=== PATIENT | male | born 1990 | race American Indian/Alaskan Native ===

== ENCOUNTER 2022-05-27 11:18 | Emergency (ER) | payer OTHER, SELFPAY ==
[2022-05-27 11:29] VITALS: BP 118/68; PULSE 74; RESP 18; TEMP 36.6; O2SAT 97; BMI 22.6
--- NOTE | 2022-05-27 11:49 | ED.PSYCH ---
HPI - Psych General Chief Complaint: Psychiatric Symptoms Stated Complaint: SI,VOLUNTARY,SADE/COOP PER EMS Time Seen by Provider: 05/27/22 11:21 Source: patient and EMS Mode of arrival: EMS Limitations: no limitations History of Present Illness HPI Narrative: 31-year-old male with history of depression, PTSD, opiate use disorder, hep C, endocarditis finished antibiotics April 14 at [facility] here coming from [facility] (he is there for detox) here with complaints of suicidal thoughts with no plan. No hallucinations. Is currently on methadone. No physical complaints Related Data Allergies Allergy/AdvReac Type Severity Reaction Status Date / Time No Known Allergies Allergy Verified 05/27/22 11:35 Review of Systems Review of Systems: Yes all other systems are reviewed and are negative Constitutional: Constitutional: Reports no additional constitutional complaints, Denies body ache(s), Denies chills, Denies fever(s), Denies headache(s) and Denies weakness Eyes: Eyes: Reports no additional eye complaints and Denies change in vision ENT: Reports system reviewed and no additional complaints, except as documented, Denies dizziness, Denies headache(s), Denies nasal congestion, Denies nasal discharge and Denies neck pain Cardiovascular: Cardiovascular: Reports no additional cardiovascular complaints, Denies chest pain, Denies leg edema and Denies dyspnea Respiratory: Respiratory: Reports no additional respiratory complaints, Denies cough and Denies dyspnea Gastrointestinal: Gastrointestinal: Reports no additional gastrointestinal complaints, Denies abdominal pain, Denies diarrhea, Denies nausea and Denies vomiting Genitourinary: Genitourinary: Denies urinary incontinence Musculoskeletal: Musculoskeletal: Reports no additional musculoskeletal complaints, Denies back pain, Denies arthralgias, Denies joint swelling, Denies neck pain, Denies numbness and Denies tingling Integumentary/Breasts: Skin/Breast: Reports system reviewed and no additional complaints, except as docu and Denies rash Neurologic: Reports system reviewed and no additional complaints, except as documented, Denies Abnormal speech present, Denies dizziness, Denies headache(s), Denies numbness, Denies tingling and Denies weakness Psychiatric: Psychiatric: Reports suicidal ideation PMFSH Past Medical History Attestation statement: The following information was validated with the patient. Source: old records reviewed and nursing notes reviewed Social History Social History Advance Directives: No Physical Exam Vital Signs: Vital Signs: Last Vital Signs Temp 98 F 05/27/22 11:29 Pulse 74 05/27/22 11:29 Resp 18 05/27/22 11:29 BP 118/68 05/27/22 11:29 Pulse Ox 97 05/27/22 11:29 O2 Del Method Room Air 05/27/22 11:29 BMI result Body Mass Index 22.6 Const: General: cooperative, healthy appearing, comfortable and no acute distress Orientation/consciousness: patient oriented x3 Limitations: no limitations HEENT: Head: Yes normal to inspection Ears: hearing grossly normal bilaterally General nose exam: Normal external nose present Face and sinus: Yes normal facial exam Mouth: Normal oral and palatal mucosa present Throat: Yes posterior oropharynx normal Eyes: General: appearance normal, both eyes and all related structures Pupils: Equal, round and reactive pupils present Neck: Neck: Yes normal visual inspection Chest: Chest palpation & inspection: normal inspection of the chest Resp: Effort & Inspection: normal respiratory effort Auscultation: clear to auscultation bilaterally Cardio: Rate: regular rate Rhythm: regular rhythm Peripheral pulses: Peripheral pulses 2+ throughout GI: Inspection: Yes normal to inspection Palpation (GI): Soft to palpation and nontender Auscultation: normal bowel sounds Back/Spine/Pelvis: Thoracic/Lumbar Spine: thoracic and lumbar spine normal to inspection Skin: General skin exam: no rashes or lesions noted Neuro: General: patient oriented x3, no focal motor deficits and normal sensation to monofilament Cranial nerves: Yes Equal, round and reactive pupils present Cognition (Neuro): normal cognition Speech: No Abnormal speech present Gait exam (Neuro): Normal gait present Motor exam (neuro): 5/5 motor strength present throughout Extrem: General: Yes normal to inspection Course Course Course Narrative: 1400-Reviewed labs which show elevated AST/ALT w/ normal bili. No abdominal pain/vomiting. This is likely secondary to patient's history of hepatitis C. All other labs reviewed. Pending crisis consultation. Reevaluation(s) Reevaluation #1: 1600-patient seen by care team. Plan for voluntary bed search. Placed in physician observation pending disposition. Medical Decision Making Medical Decision Making MDM Narrative: 31 year old male coming from detox with complaints of suicidal thoughts with no plan No concern for acute ingestion or trauma No physical complaint Will obtain labs, drug screen, COVID screen, crisis consultation Differential Diagnosis Differential Diagnoses: The differential diagnosis associated with the presentation includes Lab Data 05/27/22 12:13 05/27/22 12:13 Labs: Lab Results 05/27/22 05/27/22 05/27/22 Range/Units 11:46 12:13 12:13 WBC 4.9 (4.8-10.8) X10*3/uL RBC 4.58 L (4.60-5.80) X10*6/uL Hgb 13.7 L (14.0-18.0) g/dl Hct 41.1 L (42.0-52.0) % MCV 89.7 (80.0-98.0) fL MCH 29.9 (27.0-33.0) pg MCHC 33.3 (31.0-36.0) g/dl RDW 13.8 (11.0-16.0) % Plt Count 129 L (160-400) X10*3/uL MPV 9.1 L (9.4-12.4) fL Immature Gran % (Auto) 0.2 (0.0-0.4) % Neut % (Auto) 44.7 L (45-73) % Lymph % (Auto) 35.4 (20-40) % [place] % (Auto) 13.8 H (2-11) % Eos % (Auto) 5.3 H (0-4) % Baso % (Auto) 0.6 (0-2) % Lymph # (Auto) 1.7 (1.2-4.9) X10*3/uL [place] # (Auto) 0.7 (0.1-1.2) X10*3/uL Eos # (Auto) 0.3 (0.0-0.4) X10*3/uL Baso # (Auto) 0.0 (0.0-0.2) X10*3/uL Abs Immat Gran (auto) 0.01 (0.00-0.03) X10*3/uL Absolute Neuts (auto) 2.2 (2.0-8.3) x10*3/uL Absolute Nucleated RBC 0.000 (0.0-0.012) X10*3/uL Nucleated RBC % (auto) 0.0 (0.0-0.2) /100WBC Sodium 140 (135-145) mmol/L Potassium 4.1 (3.3-5.1) mmol/L Chloride 106 (96-108) mmol/L Carbon Dioxide 25 (22-29) mmol/L Anion Gap 13 (12-20) BUN 15 (9-16) mg/dL Creatinine 0.85 (0.5-1.4) mg/dL Estim Creat Clear Calc 113.1 Estimated GFR > 60 Random Glucose 127 H (60-115) mg/dL Calcium 8.9 (8.4-10.2) mg/dL Total Bilirubin 0.8 (0.0-1.0) mg/dL Direct Bilirubin 0.3 (0.0-0.5) mg/dL AST 159 H (5-37) U/L ALT 282 H (0-40) U/L Alkaline Phosphatase 77 (39-117) U/L Total Protein 6.8 (6.5-8.0) g/dL Albumin 3.8 (3.5-5.0) g/dL Urine Opiates Screen Not Detected (Not Detect) Urine Fentanyl Screen POSITIVE H (Not Detect) Ur Barbiturates Screen Not Detected (Not Detect) Ur Phencyclidine Scrn Not Detected (Not Detect) Ur Amphetamines Screen Not Detected (Not Detect) U Benzodiazepines Scrn Not Detected (Not Detect) Urine Cocaine Screen Not Detected (Not Detect) U Marijuana (THC) Screen Not Detected (Not Detect) Ethyl Alcohol < 10 mg/dL COVID-19 ([facility]) (Negative) COVID-19 Clin Com 05/27/22 Range/Units 12:13 WBC (4.8-10.8) X10*3/uL RBC (4.60-5.80) X10*6/uL Hgb (14.0-18.0) g/dl Hct (42.0-52.0) % MCV (80.0-98.0) fL MCH (27.0-33.0) pg MCHC (31.0-36.0) g/dl RDW (11.0-16.0) % Plt Count (160-400) X10*3/uL MPV (9.4-12.4) fL Immature Gran % (Auto) (0.0-0.4) % Neut % (Auto) (45-73) % Lymph % (Auto) (20-40) % [place] % (Auto) (2-11) % Eos % (Auto) (0-4) % Baso % (Auto) (0-2) % Lymph # (Auto) (1.2-4.9) X10*3/uL [place] # (Auto) (0.1-1.2) X10*3/uL Eos # (Auto) (0.0-0.4) X10*3/uL Baso # (Auto) (0.0-0.2) X10*3/uL Abs Immat Gran (auto) (0.00-0.03) X10*3/uL Absolute Neuts (auto) (2.0-8.3) x10*3/uL Absolute Nucleated RBC (0.0-0.012) X10*3/uL Nucleated RBC % (auto) (0.0-0.2) /100WBC Sodium (135-145) mmol/L Potassium (3.3-5.1) mmol/L Chloride (96-108) mmol/L Carbon Dioxide (22-29) mmol/L Anion Gap (12-20) BUN (9-16) mg/dL Creatinine (0.5-1.4) mg/dL Estim Creat Clear Calc Estimated GFR Random Glucose (60-115) mg/dL Calcium (8.4-10.2) mg/dL Total Bilirubin (0.0-1.0) mg/dL Direct Bilirubin (0.0-0.5) mg/dL AST (5-37) U/L ALT (0-40) U/L Alkaline Phosphatase (39-117) U/L Total Protein (6.5-8.0) g/dL Albumin (3.5-5.0) g/dL Urine Opiates Screen (Not Detect) Urine Fentanyl Screen (Not Detect) Ur Barbiturates Screen (Not Detect) Ur Phencyclidine Scrn (Not Detect) Ur Amphetamines Screen (Not Detect) U Benzodiazepines Scrn (Not Detect) Urine Cocaine Screen (Not Detect) U Marijuana (THC) Screen (Not Detect) Ethyl Alcohol mg/dL COVID-19 ([facility]) Negative (Negative) COVID-19 Clin Com See Note Discharge Plan Discharge Clinical Impression: Suicidal ideation Patient Disposition: Still a Patient Interventions: Toney-Suicide Risk Severity Scale Last Done: 05/27/22 11:48
--- OUTSIDE RECORDS SUMMARY | 2022-05-27 11:53 | XMS_ITS | Continuity of Care Document ---
Author Name Unknown Organization [facility] ter Address [address] [place] [address]- Care Team Providers Care Floor Care Technician Name Role Phone Sebastien Fitzgerald MD Primary Care Physician [phone] Encounter [facility] [place] Date(s): 12/27/19 - 12/29/[address] [address]- [facility] Discharge Disposition: A-D/C Walkout Attending Physician: Not on Staff, Attending MD Admitting Physician: Not on Staff, Admitting MD Referring Physician: Not on Staff, Referring MD Allergies, Adverse Reactions, Alerts Substance Reaction Severity Status ibuprofen Active naproxen Active acetaminophen Active Immunizations Not Given Vaccine Date Status Refusal Reason pneumococcal 23-valent vaccine 1 11/17/18 Not Give n Patient Refuses 1Result Note: will follow up with pcp Medications cloNIDine 0.1 mg oral tablet 0.1 mg, 1, tablet, By Mouth, Daily, Refills 0, Maintenance, 05/23/18 8:55:58 EDT Start Date: 05/23/18 Status: Ordered escitalopram 10 mg oral tablet 1 tablet = 10 mg, By Mouth, Daily, # 30 tablet, 0 Refills, Maintenance, 11/14/18 8:56:03 EDT, Tablet Start Date: 11/14/18 Status: Ordered gabapentin 100 mg oral capsule 200 mg, 2, capsule, By Mouth, 3 times a day, # 180 capsule, Refills 0, Tot. Refills 0, Maintenance,02/15/19 9:32:51 EST, Print Requisition Start Date: 02/15/19 Status: Ordered gabapentin 300 mg oral capsule 300 mg, 1, capsule, By Mouth, 3 times a day, # 270 capsule, Refills 0, Maintenance, 11/14/18 8:55:12 EDT Start Date: 11/14/18 Status: Ordered Methadone By Mouth, 0 Refills, Maintenance, 02/15/19 1:50:59 EST, Partial fill upon patient request Start Date: 02/15/19 Status: Ordered prazosin 1 mg oral capsule 1 mg, 1, capsule, By Mouth, 2 times a day, Refills 0, Maintenance, 11/14/18 8:55:30 EDT Start Date: 11/14/18 Status: Ordered sertraline 100 mg oral tablet 1 tablet = 100 mg, By Mouth, Daily, 0 Refills, Maintenance, 05/23/18 8:55:38 EDT Start Date: 05/23/18 Status: Ordered traZODone 100 mg oral tablet 100 mg, 1, tablet, By Mouth, Daily, Refills 0, Maintenance, 05/23/18 8:55:04 EDT Start Date: 05/23/18 Status: Ordered Problem List Condition Effective Dates Status Health Status Inform ant Alcohol use(Confirmed) Active Bipolar disease(Confirmed) Active Opioid dependence (heroin an d cocaine)(Confirmed) Active Vital Signs Most recent to oldest [Reference Range]: 1 2 3 Oxygen Saturation [94-100 %] 99 % (12/29/19 5:21 PM) 100 % (12/29/19 8:30 AM) 97 % (12/28/19 9:23 AM) Pulse Rate [55-90 bpm] 79 bpm (12/29/19 5:21 PM) 73 bpm (12/29/19 8:30 AM) 88 bpm (12/28/19 9:23 AM) Blood Pressure [90-138/55-84 mm Hg] 124/89mm Hg (12/29/19 5:21 PM) 121/73mm Hg (12/29/19 8:30 AM) 120/71mm Hg (12/28/19 9:23 AM) Respiratory Rate [16-30 br/min] 20 br/min (12/29/19 5:21 PM) 18 br/min (12/29/19 8:30 AM) 18 br/min (12/28/19 11:30 AM) Temperature [96.8-100.4 DegF] 98.1 DegF (12/29/19 8:30 AM) 98.6 DegF (12/28/19 6:44 AM) 98.9 DegF (12/27/19 11:05 PM) Mode of Delivery (Oxygen) Room air (12/29/19 5:21 PM) Room air (12/29/19 8:30 AM) Room air (12/28/19 9:23 AM) Blood pressure sites Arm, right (12/29/19 5:21 PM) Arm, right (12/28/19 6:44 AM) Temperature Route Oral (12/29/19 8:30 AM) Oral (12/28/19 6:44 AM) Oral (12/27/19 11:05 PM) Social History Social History Type Response Smoking Status Current every day bessy ruiz entered on: 02/22/16 Sex Male
--- OUTSIDE RECORDS SUMMARY | 2022-05-27 11:53 | XMS_ITS | Continuity of Care Document ---
Author Name Unknown Organization [facility] Address [address] [place] [id number]- Care Team Providers Care Training Developer Name Role Phone Amilcar OCAMPO, Sebastien Monroe Primary Care Physician Encounter [facility] ACCT R [id number] Date(s): 02/28/22 - 03/30/22 [facility] [address] [place] [id number] Attending Physician: Madie Olvera Admitting Physician: AdmMadie gutierrez Referring Physician: Admtr [id number] Allergies, Adverse Reactions, Alerts Substance Reaction Severity Status ibuprofen Active acetaminophen Resolved Immunizations Not Given Vaccine Date Status Refusal Reason influenza virus vaccine, inactivated 02/12/22 Not Given Patient Refuses influenza virus vaccine, inactivated 01/15/22 Not Given Patient Refuses pneumococcal 23-valent vaccine 1 11/17/18 Not Give n Patient Refuses 1Result Note: will follow up with pcp Medications Methadone 140, By Mouth, Daily, 0 Refills, Maintenance, 01/19/22 22:53:00 EST, Partial fill upon patient request if the prescription is for a schedule II opioid drug. Start Date: 01/19/22 Status: Ordered Problem List Condition Confirmation Course Effective Dates Status H ealth Status Informant Alcohol use Confirmed Active Bipolar disease Confirmed Active Bipolar disorder Confirmed Active Opioid dependence (heroin and cocaine) Confirmed Active Polysubstance abuse Confirmed Active Social History Social History Type Response Tobacco No Sex Patient Care team information Care Team Personnel Name: Rachel Bautista RN Position: S RN Member Role: Primary Care Nurse Name: Cyndie Mancilla RN Position: S RN Member Role: Primary Care Nurse Name: Josie Zuñiga RN Position: S RN Member Role: Primary Care Nurse Name: Mira Bullard RN Position: S RN Member Role: Primary Care Nurse Name: Raffi Jones RN Position: S RN Member Role: Primary Care Nurse Name: Krystyna Clark Position: S RN Member Role: Primary Care Nurse Name: Leland Zuniga RN Position: S RN Member Role: Primary Care Nurse Name: Rogelio James RN Position: S RN Member Role: Primary Care Nurse Name: Kat Souza RN Position: S RN Member Role: Primary Care Nurse Name: Sebastien Fitzgerald MD Position: [facility] Outreach Member Role: PCP Address: Address: [address] [place] [id number] Name: Oriana Trinidad RN Position: S RN Member Role: Primary Care Nurse Name: Collette Dominguez RN Position: [facility] RN Member Role: Primary Care Nurse Name: Carine Cruz RN Position: [facility] RN Member Role: Primary Care Nurse Name: Norma Andres RN Position: [facility] RN Member Role: Primary Care Nurse Name: Elaine Mtz RN Position: [facility] RN Member Role: Primary Care Nurse Name: Ginny Rodriguez RN Position: [facility] RN Member Role: Primary Care Nurse Name: Natasha Salazar RN Position: [facility] RN Member Role: Primary Care Nurse Name: Laurie Ma RN Position: [facility] RN Member Role: Primary Care Nurse Name: Trixie Rocha LPN Position: [facility] RN Member Role: Primary Care Nurse Name: Katie Cox RN Position: [facility] RN Member Role: Primary Care Nurse Care Team Related Persons Name: POP DELUCA Address: home [address] [place] [address]
--- OUTSIDE RECORDS SUMMARY | 2022-05-27 11:53 | XMS_ITS | Continuity of Care Document ---
Author Name Unknown Organization [facility] ter Address [address] [place] [id number]- Care Team Providers Care Warp Tester Name Role Phone Not on Staff, PCP Primary Care Physician Unavail able Encounter [facility] [place] Date(s): 12/14/21 - 12/20/[address] [address] Discharge Disposition: A-D/C AMA Attending Physician: Demario Estrada MD Admitting Physician: Joy OCAMPO, Asiya Referring Physician: Not on Staff, Referring MD Allergies, Adverse Reactions, Alerts Substance Reaction Severity Status ibuprofen Active naproxen Active acetaminophen Active Immunizations Not Given Vaccine Date Status Refusal Reason pneumococcal 23-valent vaccine 1 11/17/18 Not Give n Patient Refuses 1Result Note: will follow up with pcp Medications Azithromycin 5 Day Dose Pack 250 mg oral tablet 1 pack/packet, By Mouth, Once, # 6 tablet, 0 Refills, Soft Stop, 10/08/20 13:48:00 EDT, Tablet, [id number], Partial fill upon patient request if the prescription is for a schedule II opioid drug., 177, cm, 11/17/18 20:15:00 EDT, Height, 62.8,... Start Date: 10/08/20 Status: Ordered cloNIDine 0.1 mg oral tablet 0.1 mg, 1, tablet, By Mouth, Daily, Refills 0, Maintenance, 05/23/18 8:55:58 EDT Start Date: 05/23/18 Status: Ordered Dilaudid Inj 1.5 mg, Injection, IV Push Slowly, Every 4 hours, PRN for Pain , Severe, Routine, 12/15/21 13:48:00EDT Start Date: 12/15/21 Stop Date: 12/20/21 Status: Discontinued escitalopram 10 mg oral tablet 1 tablet [...] gabapentin 300 mg oral capsule 300 mg, Capsule, By Mouth, 12/20/21 9:00:00 EDT Start Date: 12/20/21 Stop Date: 12/20/21 Status: Completed gabapentin 300 mg oral capsule 300 mg, [...] Date: 05/23/18 Status: Ordered Problem List Condition Confirmation Course Effective Dates Status H ealth Status Informant Alcohol use Confirmed Active Bipolar disease Confirmed Active Bipolar disorder Confirmed Active Opioid dependence (heroin and cocaine) Confirmed Active Polysubstance abuse Confirmed Active Results Orders for Microbiology Reports Name Date Blood Culture 12/17/21 Blood Culture #2 12/17/21 Blood Culture 12/16/21 Blood Culture #2 12/16/21 Blood Culture 12/15/21 Blood Culture #2 12/15/21 Blood Culture 12/14/21 Blood Culture 12/14/21 Blood Culture #2 12/14/21 Microbiology Reports TEST:Blood Culture STATUS:Unauthenticated BODY SITE: SOURCE:Blood COLLECTED DATE/TIME:12/17/21 1:25 AM Blood Culture SPECIMEN DESCRIPTION : BLOOD SPECIAL REQUESTS : NONE CULTURE : NO GROWTH 3 DAYS REPORT STATUS : PRELIMINARY REPORT TEST:Blood Culture, Second Order STATUS:Unauthenticated BODY SITE: SOURCE:Blood COLLECTED DATE/TIME:12/17/21 1:25 AM Blood Culture, Second Order SPECIMEN DESCRIPTION : BLOOD RIGHT HAND SPECIAL REQUESTS : NONE CULTURE : NO GROWTH 3 DAYS REPORT STATUS : PRELIMINARY REPORT TEST:Blood Culture STATUS:Unauthenticated BODY SITE: SOURCE:Blood COLLECTED DATE/TIME:12/16/21 1:11 AM Blood Culture SPECIMEN DESCRIPTION : BLOOD RIGHT ARM SPECIAL REQUESTS : NONE CULTURE : NO GROWTH 4 DAYS REPORT STATUS : PRELIMINARY REPORT TEST:Blood Culture, Second Order STATUS:Unauthenticated BODY SITE: SOURCE:Blood COLLECTED DATE/TIME:12/16/21 1:11 AM Blood Culture, Second Order SPECIMEN DESCRIPTION : BLOOD RIGHT ARM SPECIAL REQUESTS : CRITICAL VALUE CALLED AND VERIFIED BY READBACK FOR: GRAM POSITIVE COCCI IN BLOOD TO , [place] [id number] BY TECH [id number] ON 12/19/21 AT 1350. CULTURE : ENTEROCOCCUS FAECALIS SERIOUS ENTEROCOCCAL INFECTIONS SHOULD BE TREATED WITH AMPICILLIN, PENICILLIN OR VANCOMYCIN IN SYNERGISTIC COMBINATION WITH AN AMINOGLYCOSIDE. BOTH DRUGS USED MUST BE ACTIVE. This isolate was identified using Maldi-TOF system REPORT STATUS : PRELIMINARY REPORT TEST:Blood Culture STATUS:Auth (Verified) BODY SITE: SOURCE:Blood COLLECTED DATE/TIME:12/15/21 10:37 AM Blood Culture SPECIMEN DESCRIPTION : BLOOD L ARM SPECIAL REQUESTS : CRITICAL VALUE CALLED AND VERIFIED BY READBACK FOR: GRAM POSITIVE COCCI NOTIFIED TO [id number] FROM B, AT 0230, . [id number] CULTURE : ENTEROCOCCUS FAECALIS SERIOUS ENTEROCOCCAL INFECTIONS SHOULD BE TREATED WITH AMPICILLIN, PENICILLIN OR VANCOMYCIN IN SYNERGISTIC COMBINATION WITH AN AMINOGLYCOSIDE. BOTH DRUGS USED MUST BE ACTIVE. This isolate was identified using Maldi-TOF system FOR SUSCEPTIBILITY RESULT REFER TO BLOOD CULTURE REPORT STATUS : FINAL 12/18/2021 TEST:Blood Culture, Second Order STATUS:Auth (Verified) BODY SITE: SOURCE:Blood COLLECTED DATE/TIME:12/15/21 10:37 AM Blood Culture, Second Order SPECIMEN DESCRIPTION : BLOOD L ARM SPECIAL REQUESTS : NONE CULTURE : ENTEROCOCCUS FAECALIS SERIOUS ENTEROCOCCAL INFECTIONS SHOULD BE TREATED WITH AMPICILLIN, PENICILLIN OR VANCOMYCIN IN SYNERGISTIC COMBINATION WITH AN AMINOGLYCOSIDE. BOTH DRUGS USED MUST BE ACTIVE. This isolate was identified using Maldi-TOF system These AST results were performed on the Microscan ID and AST system REPORT STATUS : FINAL 12/18/2021 ORGANISM ENTEROCOCCUS FAECALIS SERIOUS ENTEROCOCCAL INFECTIONS SHOULD BE TREATED WITH AMPICILLIN, PENICILLIN OR VANCOMYCIN IN SYNERGISTIC COMBINATION WITH AN AMINOGLYCOSIDE. BOTH DRUGS USED MUST BE ACTIVE. This isolate was identified using Maldi-TOF system These AST results were performed on the Microscan ID and AST system METHOD MIN. INHIB. CONC. (MCG/ML) AMPICILLIN SUSCEPTIBLE VANCOMYCIN SUSCEPTIBLE GENTAMICIN SYNERGY ACTIVE IN SYNERGY STREPTOMYCIN SYNERGY ACTIVE IN SYNERGY TEST:Blood Culture STATUS:Auth (Verified) BODY SITE: SOURCE:Blood COLLECTED DATE/TIME:12/14/21 2:42 PM Blood Culture SPECIMEN DESCRIPTION : BLOOD LT HAND SPECIAL REQUESTS : NONE CULTURE : ENTEROCOCCUS FAECALIS SERIOUS ENTEROCOCCAL INFECTIONS SHOULD BE TREATED WITH AMPICILLIN, PENICILLIN OR VANCOMYCIN IN SYNERGISTIC COMBINATION WITH AN AMINOGLYCOSIDE. BOTH DRUGS USED MUST BE ACTIVE. This isolate was identified using Maldi-TOF system These AST results were performed on the Microscan ID and AST system REPORT STATUS : FINAL 12/17/2021 ORGANISM ENTEROCOCCUS FAECALIS SERIOUS ENTEROCOCCAL INFECTIONS SHOULD BE TREATED WITH AMPICILLIN, PENICILLIN OR VANCOMYCIN IN SYNERGISTIC COMBINATION WITH AN AMINOGLYCOSIDE. BOTH DRUGS USED MUST BE ACTIVE. This isolate was identified using Maldi-TOF system These AST results were performed on the Microscan ID and AST system METHOD MIN. INHIB. CONC. (MCG/ML) AMPICILLIN SUSCEPTIBLE VANCOMYCIN SUSCEPTIBLE GENTAMICIN SYNERGY ACTIVE IN SYNERGY STREPTOMYCIN SYNERGY ACTIVE IN SYNERGY TEST:Blood Culture, Second Order STATUS:Auth (Verified) BODY SITE: SOURCE:Blood COLLECTED DATE/TIME:12/14/21 2:35 PM Blood Culture, Second Order SPECIMEN DESCRIPTION : BLOOD LT SPECIAL REQUESTS : NONE CULTURE : ENTEROCOCCUS FAECALIS SERIOUS ENTEROCOCCAL INFECTIONS SHOULD BE TREATED WITH AMPICILLIN, PENICILLIN OR VANCOMYCIN IN SYNERGISTIC COMBINATION WITH AN AMINOGLYCOSIDE. BOTH DRUGS USED MUST BE ACTIVE. This isolate was identified using Maldi-TOF system FOR SUSCEPTIBILITY RESULT REFER TO BLOOD CULTURE REPORT STATUS : FINAL 12/17/2021 TEST:Blood Culture STATUS:Auth (Verified) BODY SITE: SOURCE:Blood COLLECTED DATE/TIME:12/14/21 2:07 PM Blood Culture SPECIMEN DESCRIPTION : BLOOD RT ARM SPECIAL REQUESTS : CRITICAL VALUE CALLED AND VERIFIED BY READBACK FOR: GRAM POSITIVE COCCI TO [id number], D3B, 12/15 AT 0443 BY TECH [id number] CULTURE : ENTEROCOCCUS FAECALIS SERIOUS ENTEROCOCCAL INFECTIONS SHOULD BE TREATED WITH AMPICILLIN, PENICILLIN OR VANCOMYCIN IN SYNERGISTIC COMBINATION WITH AN AMINOGLYCOSIDE. BOTH DRUGS USED MUST BE ACTIVE. FOR SUSCEPTIBILITY RESULT REFER TO BLOOD CULTURE Enterococcus faecalis was identified by multi-plex PCR REPORT STATUS : FINAL 12/17/2021 Radiology Reports * Exam Date Time Procedure Performing Provider Status 12/18/21 8:05 AM Shoulder Min 2 Views Left Jeane Lui; Auth (Verified) Notes: (Shoulder Min 2 Views Left) Reason For Exam: Pain RESULT: Shoulder Min 2 Views Left Shoulder Min 2 Views Left, 2 views Reason: Pain; Clinical Question(s): Osteomyelitis COMPARISON: None. FINDINGS: No fracture or dislocation. No arthritic change of the glenohumeral joint. Normal AC joint and portions of the clavicle included on the exam. No calcification of the rotator cuff. IMPRESSION: Normal. WSN: [id number] Ordering Physician: Demario Estrada Dictated By: Ginny Barakat MD Dictated Date/Time: 12/18/21 1:46 pm Reviewed By: Ginny Barakat MD Signed By: Ginny Barakat MD Signed Date/Time: 12/18/21 1:46 pm Transcribed By: NIKI Transcribed Date/Time: 12/18/21 1:45 pm * Exam Date Time Procedure Performing Provider Status 12/14/21 1:53 PM Chest Portable Genevieve Deluca; Auth (Lemuel ified) Notes: (Chest Portable) Reason For Exam: Shortness of Breath RESULT: Chest Portable Examination: Portable chest performed on 12/14/2021. History: Shortness of breath. Findings: A frontal view of the chest is compared to a prior study dated 10/08/2020. The cardiac and mediastinal silhouettes are within normal limits. There is a left midlung and a left lower lobe infiltrate. The right lung is clear. IMPRESSION: Multifocal airspace disease within the left lung, consistent with pneumonia. WSN: [id number] Ordering Physician: Jose Alejandro Montilla Dictated By: Mira Cornelius MD Dictated Date/Time: 12/14/21 1:55 pm Reviewed By: Mira Cornelius MD Signed By: Mira Cornelius MD Signed Date/Time: 12/14/21 1:55 pm Transcribed By: NIKI Transcribed Date/Time: 12/14/21 1:54 pm Vital Signs Most recent to oldest [Reference Range]: 1 2 3 Height 167.64 cm (12/20/21 7:06 AM) 167.64 cm (12/20/21 3:15 AM) 167.64 cm (12/19/21 11:19 PM) Weight 54.3 kg (12/19/21 1:02 PM) 54.6 kg (12/15/21 11:01 AM) Oxygen Saturation [94-100 %] 99 % (12/20/21 7:06 AM) 94 % (12/19/21 11:19 PM) 94 % (12/19/21 8:29 PM) Pulse Rate [55-90 bpm] 91 bpm *H* (12/20/21 7:06 AM) 72 bpm (12/20/21 3:15 AM) 87 bpm (12/19/21 11:19 PM) Body Mass Index [18.5-24.99 kg/m2] 19.32 kg/m2 (12/19/21 1:02 PM) 19.43 kg/m2 (12/15/21 11:01 AM) Blood Pressure [90-138/55-84 mm Hg] 93/79mm Hg (12/20/21 7:06 AM) 111/60mm Hg (12/20/21 3:15 AM) 99/56mm Hg (12/19/21 11:19 PM) Respiratory Rate [16-30 br/min] 16 br/min (12/20/21 9:09 AM) 16 br/min (12/20/21 9:09 AM) 16 br/min (12/20/21 9:09 AM) Temperature [96.8-100.4 DegF] 97.8 DegF (12/20/21 7:06 AM) 97.8 DegF (12/20/21 3:15 AM) 98.1 DegF (12/19/21 11:19 PM) Mode of Delivery (Oxygen) Room air (12/20/21 7:06 AM) Room air (12/20/21 3:15 AM) Room air (12/19/21 11:19 PM) Blood pressure sites Arm, left (12/20/21 7:06 AM) Arm, right (12/20/21 3:15 AM) Arm, right (12/19/21 11:19 PM) Temperature Route Oral (12/20/21 7:06 AM) Oral (12/20/21 3:15 AM) Oral (12/19/21 11:19 PM) Weight Obtained Via Standing scale (12/19/21 1:02 PM) Standing scale (12/15/21 11:01 AM) Social History Social History Type Response Smoking Status Current every day bessy ruiz entered on: 02/22/16 Sex Male Portable XR Chest Views * ERICHowerscribe , CIS S: TRANSCRIMira Kraus MD: VERIFY Event Display: Result: Authored Date: [id number] Examination: Portable chest performed on 12/14/2021. History: Shortness of breath. Findings: A frontal view of the chest is compared to a prior study dated 10/08/2020. The cardiac and mediastinal silhouettes are within normal limits. There is a left midlung and a left lower lobe infiltrate. The right lung is clear. IMPRESSION: Multifocal airspace disease within the left lung, consistent with pneumonia. WSN: [id number] Ordering Physician: Jose Alejandro Montilla Dictated By: Mira Cornelius MD Dictated Date/Time: 12/14/21 1:55 pm Reviewed By: Mira Cornelius MD Signed By: Mira Cornelius MD Signed Date/Time: 12/14/21 1:55 pm Transcribed By: NIKI Transcribed Date/Time: 12/14/21 1:54 pm XR Shoulder - left GE 2 Views * BHSPowerscribe , CIS S: TRANSCRIGinny Combs MD: VERIFY Event Display: Result: Authored Date: [id number] Shoulder Min 2 Views Left, 2 views Reason: Pain; Clinical Question(s): Osteomyelitis COMPARISON: None. FINDINGS: No fracture or dislocation. No arthritic change of the glenohumeral joint. Normal AC joint and portions of the clavicle included on the exam. No calcification of the rotator cuff. IMPRESSION: Normal. WSN: [id number] Ordering Physician: Demario Estrada Dictated By: Ginny Barakat MD Dictated Date/Time: 12/18/21 1:46 pm Reviewed By: Ginny Barakat MD Signed By: Ginny Barakat MD Signed Date/Time: 12/18/21 1:46 pm Transcribed By: NIKI Transcribed Date/Time: 12/18/21 1:45 pm Patient Care team information Personnel Name: Not on Staff, PCP
--- OUTSIDE RECORDS SUMMARY | 2022-05-27 11:54 | XMS_ITS | Continuity of Care Document ---
Author Name Unknown Organization [facility] ter Address [address] [place] [id number]- Care Team Providers Care Store Lead Name Role Phone Not on Staff, PCP Primary Care Physician Unavail able Encounter [facility] Date(s): 12/20/21 - 12/20/[address] [id number]- Encounter Diagnosis Endocarditis(Final) - 12/20/21 Discharge Disposition: A-D/C AMA Attending Physician: Jamshid Haley MD Admitting Physician: Jamshid Haley MD Referring Physician: Not on Staff, Referring [...] Start Date: 05/23/18 Status: Ordered Dilaudid Inj 2 mg, Injection, IV Push Slowly, Every 15 minutes for 3 doses/times, PRN for Pain , Moderate, and SBP greater than 100, Routine, 12/20/21 21:43:00 EDT, Stop date Limited # of times Start Date: 12/20/21 Status: Ordered escitalopram 10 mg oral tablet [...] Confirmed Active Polysubstance abuse Confirmed Active Results Radiology Reports * Exam Date Time Procedure Performing Provider Status 12/20/21 6:40 PM Chest 2 Views Frontal and Lat Dami Fitzgerald; Tootie (Verified) Notes: (Chest 2 Views Frontal and Lat) Reason For Exam: Chest Pain;Other: RESULT: Chest 2 Views Frontal and Lat Chest 2 Views Frontal and Lat INDICATION: Hx of Present Illness: Pt reports leaving from inpatient unit to do cocaine. Patient returning for continuation of care. Pt reports having increased difficulty taking deep breath due to severe anterior chest pain.; Reason: Other:; Chest Pain; Clinical Question(s): Other: COMPARISON: 12/14/2021 FINDINGS: LINES AND TUBES: None. LUNGS AND PLEURA: There is persistent but minimally improved patchy opacity in the left midlung. A new patchy opacityin the right infrahilar region is present. There is improved aeration in the left base. No effusion or pneumothorax. HEART, MEDIASTINUM AND NELSY: Normal. BONES AND SOFT TISSUES: No acute abnormality. IMPRESSION: New right infrahilar consolidation probably new focus of pneumonia. Minimally improved left mid consolidation. A critical result message (Ferriday) has been communicated via the [employer] system on 12/20/2021 6:43 PM, Message ID [id number]. WSN: [id number] Ordering Physician: Madeleine Mcintosh Dictated By: Hilda Rodriguez MD Dictated Date/Time: 12/20/21 6:43 pm Reviewed By: Hilda Rodriguez MD Signed By: Hilda Rodriguez MD Signed Date/Time: 12/20/21 6:43 pm Transcribed By: NIKI Transcribed Date/Time: 12/20/21 6:41 pm Vital Signs Most recent to oldest [Reference Range]: 1 2 3 Height 167 cm (12/20/21 10:43 PM) 167 cm (12/20/21 6:10 PM) 167 cm (12/20/21 4:24 PM) Weight 55 kg (12/20/21 10:43 PM) 55 kg (12/20/21 6:10 PM) 55 kg (12/20/21 4:24 PM) Oxygen Saturation [94-100 %] 97 % (12/20/21 8:52 PM) 97 % (12/20/21 6:43 PM) 96 % (12/20/21 4:24 PM) Pulse Rate [55-90 bpm] 86 bpm (12/20/21 8:52 PM) 83 bpm (12/20/21 6:43 PM) 112 bpm *H* (12/20/21 4:24 PM) Body Mass Index [18.5-24.99 kg/m2] 19.72 kg/m2 (12/20/21 4:24 PM) Blood Pressure [90-138/55-84 mm Hg] 110/72mm Hg (12/20/21 8:52 PM) 99/62mm Hg (12/20/21 6:43 PM) 120/72mm Hg (12/20/21 4:24 PM) Respiratory Rate [16-30 br/min] 14 br/min *L* (12/20/21 9:26 PM) 16 br/min (12/20/21 4:24 PM) Temperature [96.8-100.4 DegF] 98.0 DegF (12/20/21 6:43 PM) 99.7 DegF (12/20/21 4:24 PM) Mode of Delivery (Oxygen) Room air (12/20/21 8:52 PM) Room air (12/20/21 6:43 PM) Room air (12/20/21 4:24 PM) Blood pressure sites Arm, left (12/20/21 8:52 PM) Arm, left (12/20/21 6:43 PM) Arm, right (12/20/21 4:24 PM) Temperature Route Oral (12/20/21 6:43 PM) Oral (12/20/21 4:24 PM) Dry Weight 55 kg (12/20/21 10:43 PM) 55 kg (12/20/21 6:10 PM) 55 kg (12/20/21 4:24 PM) Weight Obtained Via Patient/family state d (12/20/21 4:24 PM) Dry Weight Obtained Via Patient/family s tated (12/20/21 4:24 PM) Social History Social History Type Response Smoking Status Current every day joseph entered on: 02/22/16 Sex Male Note * BHSPowerscribe , CIS S: TRANSCHilda Casey MD: VERIFY Event Display: Result: Authored Date: [id number] Chest 2 Views Frontal and Lat INDICATION: Hx of Present Illness: Pt reports leaving from inpatient unit to do cocaine. Patient returning for continuation of care. Pt reports having increased difficulty taking deep breath due to severe anterior chest pain.; Reason: Other:; Chest Pain; Clinical Question(s): Other: COMPARISON: 12/14/2021 FINDINGS: LINES AND TUBES: None. LUNGS AND PLEURA: There is persistent but minimally improved patchy opacity in the left midlung. A new patchy opacityin the right infrahilar region is present. There is improved aeration in the left base. No effusion or pneumothorax. HEART, MEDIASTINUM AND NELSY: Normal. BONES AND SOFT TISSUES: No acute abnormality. IMPRESSION: New right infrahilar consolidation probably new focus of pneumonia. Minimally improved left mid consolidation. A critical result message (Ferriday) has been communicated via the [employer] system on 12/20/2021 6:43 PM, Message ID [id number]. WSN: [id number] Ordering Physician: Madeleine Mcintosh Dictated By: Hilda Rodriguez MD Dictated Date/Time: 12/20/21 6:43 pm Reviewed By: Hlida Rodriguez MD Signed By: Hilda Rodriguez MD Signed Date/Time: 12/20/21 6:43 pm Transcribed By: NIKI Transcribed Date/Time: 12/20/21 6:41 pm Patient Care team information Personnel Name: Not on Staff, PCP
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
--- OUTSIDE RECORDS SUMMARY | 2022-05-27 11:54 | XMS_ITS | Continuity of Care Document ---
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 08:13:00) Early Warning Score: 0 (02/08/22 13:31:17) ? . Physical Exam General?NAD, AAO HEENT?PERRLA, oropharynx clear, moist mucus membranes Pulm?CTA bilaterally, no wheezes/rhonchi/rales CV?RRR, +S1/S2, no murmurs/rubs GI?Soft, nontender, nondistended, no organomegaly, bowel sounds are present Neuro?Moves all extremities MS?no obvious deformity Psych?Mood appropriate to situation?? [facility] to Face ^[facility]Health[facility] Results Discharge Labs BLOOD COUNT & DIFF WBC 4.6 k/mm3 ()?? 02/04/2022 05:48 RBC 4.45 m/mm3 (Low)?? 02/04/2022 05:48 Hgb 13.4 Gm/dL (Low)?? 02/04/2022 05:48 Hct 42.1 % ()?? 02/04/2022 05:48 MCV 94.6 femtoliters (High)?? 02/04/2022 05:48 MCH 30.1 pg ()?? 02/04/2022 05:48 MCHC 31.8 g/dL (Low)?? 02/04/2022 05:48 Platelet Count 154 k/mm3 ()?? 02/04/2022 05:48 RDW-SD 52.6 femtoliters (High)?? 02/04/2022 05:48 MPV 9.0 femtoliters (Low)?? 02/04/2022 05:48 Nucleated RBC (Automated) 0.0 #/100 WBC'S ()?? 02/04/2022 05:48 Abs. NRBC 0.0 k/mm3 ()?? 02/04/2022 05:48 Abs. Neut 2.7 k/mm3 ()?? 02/03/2022 08:35 Abs. Lymph 1.1 k/mm3 ()?? 02/03/2022 08:35 Abs. [place] 0.9 k/mm3 ()?? 02/03/2022 08:35 Abs. Eo 0.3 k/mm3 ()?? 02/03/2022 08:35 Abs. Baso 0.1 k/mm3 ()?? 02/03/2022 08:35 Neut % 53.5 % ()?? 02/03/2022 08:35 Lymph % 22.2 % ()?? 02/03/2022 08:35 [place] % 17.3 % (High)?? 02/03/2022 08:35 Eos % 5.0 % ()?? 02/03/2022 08:35 Baso % 1.4 % ()?? 02/03/2022 08:35 Imm Gran 0.6 % ()?? 02/03/2022 08:35 Abs. Imm Gran 0.0 k/mm3 ()?? 02/03/2022 08:35 ?? CARDIAC CK, Total 28 units/L ()?? 02/04/2022 05:48 Nt-Probnp 123 pg/mL ()?? 01/21/2022 01:17 High Sensitivity Troponin (HSTnT) <6 ng/L ()?? 01/21/2022 00:47 ? CHEM GENERAL Sodium 138 mmol/L ()?? 02/08/2022 04:46 Potassium 4.8 mmol/L ()?? 02/08/2022 04:46 Chloride 101 mmol/L ()?? 02/08/2022 04:46 Bicarbonate Level 25 mmol/L ()?? 02/08/2022 04:46 Anion Gap 12 ()?? 02/08/2022 04:46 Glucose Level 81 mg/dL ()?? 02/07/2022 05:17 BUN 21 mg/dL (High)?? 02/08/2022 04:46 Creatinine-Blood 0.8 mg/dL ()?? 02/08/2022 04:46 Estimated GFR Creatinine 120 ML/MIN/1.73 M2 ()?? 02/08/2022 04:46 Calcium 9.1 mg/dL ()?? 02/07/2022 05:17 Magnesium 1.9 mg/dL ()?? 01/23/2022 02:08 Protein, Total 7.0 Gm/dL ()?? 02/08/2022 04:46 Albumin 4.4 Gm/dL ()?? 02/08/2022 04:46 Alkaline Phosphatase 106 units/L ()?? 02/08/2022 04:46 AST (SGOT) 405 units/L (High)?? 02/08/2022 04:46 ALT (SGPT) 644 units/L (High)?? 02/08/2022 04:46 Bilirubin, Total 0.8 mg/dL ()?? 02/08/2022 04:46 Bilirubin, Direct 0.2 mg/dL ()?? 02/08/2022 04:46 Bilirubin, Indirect 0.6 mg/dL ()?? 02/08/2022 04:46 Iron Level 112 mcg/dL ()?? 02/03/2022 16:08 Iron Binding Capacity, Unsaturated 186 mcg/dL ()?? 02/03/2022 16:08 Iron Binding Capacity, Estimated Total 298 mcg/dL ()?? 02/03/2022 16:08 % Iron Saturation 38 % ()?? 02/03/2022 16:08 Ferritin Level 348 ng/mL (High)?? 02/03/2022 16:08 ?? COAG INR 1.1 ()?? 02/06/2022 00:57 Protime (PT) 11.9 seconds (High)?? 02/06/2022 00:57 ?? HEME OTHER Hold Lavender Top SPECIMEN DISCARDED AFTER 24 HOURS. ()?? 01/28/2022 08:50 Hold Blue Top SPECIMEN DISCARDED AFTER 4 HOURS. ()?? 01/21/2022 01:17 ?? IMMUNOLOGY GENERAL Etxis-6-Xrzbjprcurs 172 mg/dL ()?? 02/03/2022 16:08 Ceruloplasmin 26 mg/dL ()?? 02/03/2022 16:08 ?? SEROLOGY INF DISEASE Hepatitis B Surface Antigen NEGATIVE (N)?? 02/02/2022 07:37 Hepatitis B Core Ab, Total NEGATIVE (N)?? 02/02/2022 07:37 Anti-HBS Quant 102.44 mIU/mL ()?? 02/02/2022 07:37 ? TOXICOLOGY/TDM Acetaminophen Level <5 mg/L (Low)?? 02/03/2022 16:08 ? VIROLOGY COVID-19 PCR Specimen Source NASAL ()?? 01/26/2022 06:15 COVID-19 PCR Result POSITIVE (Abnormal)?? 01/26/2022 06:15 ? 35_ minutes spent on discharge * Deidre Sanon RN: PERFORM Event Display: Discharge/Transfer Note Hospital Authored Date: Nursing Discharge Note Entered On: 02/08/2022 13:28 EST Performed On: 02/08/2022 13:27 EST by Deidre Sanon RN Nursing Discharge Note 2 Discharge Time : 02/08/2022 13:27 EST Discharge Level of Care at Discharge : Left Against Medical Advice Patient Left Unit Via : Ambulatory Patient Accompanied Off Unit with : Other: independent DC Instructions Provided & Signed by Pt : No Patient Understands D/C Instructions : No Verbalization of Discharge Plan Comments : AMA Patient Instructions Discharge Signed : No Instructions for Discharge Comments : AMA Did Pt have Specialty Bed or Wound Vac : No Talita TOPETE, Deidre - 02/08/2022 13:27 EST * WARREN Hanna S: TRANSCRIRojas Ramon MD: VERIFY Event Display: Result: Authored Date: [id number] Ultrasound of the liver including Doppler evaluation of the portal vein. Findings There is no evidence of portal vein thrombosis. Flow within the main portal vein is hepatopedal. Common bile duct measures 4 mm within normal limits. No evidence of focal abnormality within the liver. IMPRESSION: Unremarkable evaluation the liver. No evidence of portal vein thrombosis. WSN: [id number] Ordering Physician: Zuleika Lawrence Dictated By: Rojas Reid MD Dictated Date/Time: 02/03/22 10:26 p Reviewed By: Rojas Reid MD Signed By: Rojas Reid MD Signed Date/Time: 02/03/22 10:26 pm Transcribed By: CSTrisha Transcribed Date/Time: 02/03/22 10:24 pm * WARREN Hanna S: TRANSCSukh Alford MD: VERIFY Event Display: Result: Authored Date: [id number] US Doppler Ext Lower Venous Left Reason: Other:; mild tenderness and swelling in left medial area just above knee; Clinical Question(s): Thrombus COMPARISON: None IMAGING TECHNIQUE: Ultrasound of the veins from the groin through the calf was performed using grayscale, color, and spectral Doppler ultrasound assessing for complete compressibility and normal flowcharacteristics. FINDINGS: Common femoral vein: Patent. No thrombosis. Femoral vein: Patent. No thrombosis. Popliteal vein: Patent. No thrombosis. Gastrocnemius veins: The visualized portions are patent without evidence of thrombosis. Peroneal veins: The visualized portions are patent without evidence of thrombosis. Posterior tibial veins: The visualized portions are patent without evidence of thrombosis. Contralateral common femoral vein: Patent. No thrombosis. OTHER FINDINGS: None. IMPRESSION: No evidence of deep venous thrombosis. WSN: [id number] Ordering Physician: Romelia Almaguer Dictated By: Sukh Oates MD Dictated Date/Time: 01/27/22 8:46 pm Reviewed By: Sukh Oates MD Signed By: Sukh Oates MD Signed Date/Time: 01/27/22 8:46 pm Transcribed By: NIKI Transcribed Date/Time: 01/27/22 8:39 pm * Event Display: Cardiac Rhythm Strips Authored Date: * Event Display: Cardiac Rhythm Strips Authored Date: Hospital Progress note * Talita TOPETE, Deidre: SIGN, MODIFY, PERFORM, SIGN, VERIFY Event Display: Progress Note Hospital Authored Date: Patient: JANAE HANDY Age: 31 years Sex: Male : 1990 Associated Diagnoses: None Author: Deidre Sanon RN Findings Problem Related to Alteration in Cardiac Function (new) : Alteration in Cardiac Function/new 02/08/2022 10:03 EST Alteration in Cardiac Status Related to Other: 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 Goals & Outcomes, Cardiac Status Pt will resume/maintain adequate cardiac output, Pt will resume/maintain adequate hemodynamic status, Pt will resume/maintain adequate respiratory function, Pt will resume/maintain intact neuro function, Pt will maintain adequate GI/ function appropriate for pt, Pt will maintain adequate nutrition status, Pt/caregiver will state understanding of diagnosis, Pt/caregiver will state strategies to reduce risk factors Cardiac Interventions Implemented Assess/monitor cardiac status, Assess/monitor neuro status, Assess/monitor respiratory status Goals/Interventions, Cardiac Yes Cardiac, Problem Start 02/01/2022 5:51 Reviewed Plan with, Cardiac Status Patient Patient Progression, Cardiac Status Patient progressing according to plan . Nursing Data Vital Signs : VITAL SIGNS SECTION 02/08/2022 8:13 EST Temperature 97.6 DegF Temperature Route Oral Pulse Rate 66 bpm Respiratory Rate 20 br/min Systolic Blood Pressure 115 mm Hg Diastolic Blood Pressure 70 mm Hg Blood pressure sites Arm, right Mean Arterial Pressure 85 mm Hg Pulse Pressure 45 mm Hg Oxygen Saturation 99 % Mode of Delivery (Oxygen) Room air . Pain Data : PAIN SECTION 02/08/2022 9:38 EST Pain Intensity 8 . Evaluation A+Ox3, VSS. C/O 8/10 chest pain, notified and prn Dilaudid administered. Denies SOB or nausea.Refused Lovenox injection. Respirations even and steady on RA. No edema, +PP. Reports last BM 02/07/22. Denies dysuria. OOB and ambulating independently with steady gait. Please see [facility] for full assessment. Call membreno within reach, fall precautions taken, safety maintained.. * Talita TOPETE, Deidre: PERFORM Event Display: Progress Note Hospital Authored Date: Pt. left MD JACKI notified. Peripheral IV removed with catheter intact and pressure dressing applied. * Candy Naranjo RN: PERFORM, SIGN, VERIFY Event Display: Progress Note Hospital Authored Date: Patient: JANAE HANDY Age: 31 years Sex: Male : 1990 Associated Diagnoses: None Author: Candy Naranjo RN Findings Evaluation Patient is alert and oriented time3 . C/o pain 7/10 medicated with Dilaudid 4 mg po with effect at21;10 , Lung sounds clear . Positive pedal pulses . Patient reported last time BM 02/07/22. . Tolerating Regular diet , no c/o nausea or vomiting . Patient voided 250 cc at 1900. Skin intact . C/o difficulty falling asleep medicated with Melatonin 3 mg po with effect. Patient oob independently . Resting comfortably at present time, will continue to monitor and report abnormal results to covering Mds.. * Melinda OCAMPO, [facility]: PERFORM Event Display: Progress Note Hospital Authored Date: Patient: ??JANAE HANDY ? Age:??31 Years?Sex:??Male?:??1990?? Subjective No events overnight?? seen at bedside, lab and vitals reviewed?? No chest pain or SOB?? Had BM, lft improving Review of Systems All review of systems negative except above Objective Measurements?? Height: 168 cm (02/07/22) Weight: 59.9 kg (01/21/22) Dry Weight: 59.9 kg (01/21/22) Body Mass Index: 21.22 kg/m2 (01/21/22) ? Vital Signs?? Temperature: 97.8 DegF (02/07/22 07:23:00) Temperature Route: Axillary (02/07/22 07:23:00) Pulse Rate: 71 bpm (02/07/22 14:26:00) Respiratory Rate: 18 br/min (02/07/22 14:25:00) Systolic Blood Pressure: 107 mm Hg (02/07/22 14:26:00) Diastolic Blood Pressure: 63 mm Hg (02/07/22 14:26:00) Blood pressure sites: Arm, right (02/07/22 14:26:00) Mean Arterial Pressure: 78 mm Hg (02/07/22 14:26:00) Pulse Pressure: 44 mm Hg (02/07/22 14:26:00) Oxygen Saturation: 97 % (02/07/22 07:23:00) Mode of Delivery (Oxygen): Room air (02/07/22 07:23:00) Early Warning Score: 2 (02/07/22 14:27:01) ? Intake/Output? 01/21 04:27 02/07 07:00 02/06 07:00 02/05 07:00 02/04 07:00 ?? 02/07 17:05 02/07 17:05 02/07 06:59 02/06 06:59 02/05 06:59 Intake ?32558 ?236 ?832 ? 1560 ?574 Output ? 4870 ?500 ?175 ?0 ?0 Net Total ? 6439 ? -264 ?657 ? 1560 ?574 ? Urine Count ? 34 ?2 ?6 ?5 ?8 ? Physical Exam General?NAD, AAO HEENT?PERRLA, oropharynx clear, moist mucus membranes Pulm?CTA bilaterally, no wheezes/rhonchi/rales CV?RRR, +S1/S2, no murmurs/rubs GI?Soft, nontender, nondistended, no organomegaly, bowel sounds are present Neuro?Moves all extremities MS?no obvious deformity Psych?Mood appropriate to situation?? _ Inpatient Medications Medications (18) Active SCHEDULED: (8) Ascorbic Acid 250 mg Tablet (Vitamin C 250 mg oral tablet) ??250 mg, By Mouth, Every other day Enoxaparin 40 mg Inj (Enoxaparin Inj) ??40 mg 0.4 mL, Subcutaneous Injection, Daily Ferrous Sulfate 325 mg EC Tablet (ferrous sulfate 325 mg oral enteric coated tablet) ??325 mg, By Mouth, Every other day Lidocaine 5% Topical Patch (Lidocaine 5% Patch) ??2 each, Topically, Daily Methadone 10mg/5mL UD Solution (Methadone Liquid) ??70 mg 35 mL, By Mouth, 2 times a day NaCl 0.9% Flush 3ml (NaCL 0.9% Flush) ??3 mL, IV Push, Every 8 hours Remove Patch (Remove Lidocaine Patch) ??2 each, Topically, Daily at bedtime Senna Tablet (Senna 8.6 mg oral tablet) ??17.2 mg 2 tablet, By Mouth, Daily CONTINUOUS: (0) PRN: (10) Dextromethorphan-Guaifenesin 20 mg-200 mg/10 mL Liqu UD (Robitussin DM Liquid) ??10 mL, By Mouth, Every 4 hours HYDROmorphone 4 mg Tablet (Dilaudid 4 mg oral tablet) ??4 mg, By Mouth, Every 4 hours Lactulose 20 Gm/30mL Syrup (lactulose 10 gm/15 ml oral syrup) ??20 Gm 30 mL, By Mouth, Daily Lidocaine 5% Ointment (Lidocaine 5% Topical) ??1 application, Topically, 3 times a day Melatonin 3 mg Tablet (Melatonin Tablet) ??3 mg, By Mouth, Daily at bedtime NaCl 0.9% Flush 3ml (NaCL 0.9% Flush) ??3 mL, IV Push, Every 8 hours nalOXONE ??400mcg/mL Inj (nalOXONE Inj) ??0.2 mg 0.5 mL, IV Push, Every 5 minutes Ondansetron 4 mg ODT (Zofran ODT 4 mg oral tablet, disintegrating) ??4 mg, By Mouth, Every 6 hours Senna 8.6 mg / Docusate 50 mg tablet (Docusate/Senna Tablet) ??1 tablet, By Mouth, 2 times a day Simethicone 80 mg Chewable Tablet (Simethicone Tablet) ??80 mg, Chew, 3 times a day ? Results Abnormal Labs ?? CHEM GENERAL ??ALT (SGPT) ??650 units/L (High) ??02/07/2022 05:17 ??AST (SGOT) ??414 units/L (High) ??02/07/2022 05:17 ??BUN ??22 mg/dL (High) ??02/07/2022 05:17 ??Estimated GFR Creatinine ??121 ML/MIN/1.73 M2 () ??02/07/2022 05:17 ? Note: Critical results are displayed in red. ? Assessment/Plan 31-year-old male??with endocarditis??diagnosed 12/14 who received treatment??intermittently and leaving AMA without completing treatment presented wtih pleuritic chest pain which has been happening for a long??time. ?? Transaminitis Hepatitis C - untreated p/w elevated Hep c RNA quantitative PCR Ultrasound liver Doppler without significant finding CT abdomen??without liver significant finding Ceruloplasmin ??and acetaminophen and iron??level normal ?? -ID will reschedule outpatient follow-up for potential hepatitis C treatment -Gastroenterology on board, appreciate recommendations- pt need to stay in hospital to watch LFT -Patient might need??liver biopsy ?? Endocarditis/Bilateral pulmonary septic emboli to lung- treated. COVID-positive??01/13 Chest pain - improved p/w pleuritic CP likely in setting on endocarditis and recent COVID-19 Has received incomplete treatment of endocarditis??since he leaves AMA and does not complete 6 weeks?? Has ongoing??substance abuse with positive??tox screen, BC (01/19) NGTD He was going to receive long-active intravenous antibiotic therapy (oritavancin) on??01/20, was prepared,??held for him, however he left AMA??therefore dose was discarded Repeat TTE 01/30 noted persistent tricuspid vegetation (large mobile vegetation (1.0 x 0.9 cm) noted on the tricuspid valve. There is severe tricuspid valve regurgitation. EF 55-60% Comparing to previous echo vegetation??is almost the same, tricuspid regurg getting worse. Finished antibiotic ?? -Seen by cardiac surgery,??no surgery??indicated at this point -surveillance BC 1 week after stopping abx- antibiotic stopped on 02/03 - to be done on 02/10 ?? Opioid use disorder: Continue methadone 70 mg twice daily Medial left upper leg tenderness noted 01/27 - LLE doppler neg for dvt - resolved ? Quality Measures: VTE Prophylaxis:??Lovenox Code Status:??Full Ongoing Medical Necessity:??elevated liver function- possible d/c in 2 days. ? CT Abdomen and Pelvis W contrast IV * [facility] , [facility] S: Karlo Solomon MD: VERIFY Event Display: Result: Authored Date: CT Abd/Pelvis W/ IV Contrast Only INDICATION: Recent diagnosis of endocarditis and pulmonary septic emboli. Unchanged hepatitis C. Rising LFTs with acute on chronic liver failure. Rule out liver abscess.. TECHNIQUE: Helical CT scan through the abdomen and pelvis with IV contrast formatted in 3 planes without enteric contrast. 100 cc of Omnipaque 300 was administered intravenously.Weight-based protocolusing automatic tube modulation was used to optimize exposure parameters. CTDIvol Body: 12.60 mGy, DLP Body: 644 mGy*cm. COMPARISON: 12/22/2021 FINDINGS: BRADDER VIEW FINDINGS, LINES AND TUBES: None. LOWER CHEST: Result basilar consolidation. No evidence of new septic emboli or cavitary lesions. Nopleural or pericardial effusion. DIAPHRAGM: Normal. LIVER: Normal. No abscess or mass. No evidence of cirrhosis or portal hypertension. GALLBLADDER, BILE DUCTS AND DINA HEPATIS: Normal. SPLEEN: Unchanged splenomegaly. No splenic lesions. PANCREAS: Normal. ADRENAL GLANDS: Normal. RIGHT KIDNEY AND URETER: Normal. LEFT KIDNEY AND URETER: Normal. URINARY BLADDER: Normal. STOMACH, SMALL BOWEL AND LARGE BOWEL: Moderate to severe diffuse colonic stool retention. No evidence of inflammation, obstruction or mass. APPENDIX: Not seen, but no evidence of appendicitis. REPRODUCTIVE ORGANS: Normal. OMENTUM, PERITONEUM AND MESENTERY: No ascites, pneumoperitoneum or omental lesions LYMPH NODES: Normal. VASCULATURE: Normal aorta, no aneurysm. No venous thrombosis. ABDOMINAL WALL and RETROPERITONEAL MUSCLES: Normal. BONES: Normal. IMPRESSION: 1. Normal liver. 2. Unchanged splenomegaly. 3. Moderate to severe stool retention. WSN: [id number] Ordering Physician: Eliud Ramirez Dictated By: Karlo Bauman MD Dictated Date/Time: 02/05/22 11:19 a Reviewed By: Karlo Bauman MD Signed By: Karlo Bauman MD Signed Date/Time: 02/05/22 11:19 am Transcribed By: NIKI Transcribed Date/Time: 02/05/22 11:09 am XR Shoulder - right GE 2 Views * [facility] S: TRANSCRIBE Darvin Sanchez MD: VERIFY Event Display: Result: Authored Date: [id number] Shoulder Min 2 Views Right, 2 views REASON: Pain; Clinical Question(s): Dislocation COMPARISON: None. FINDINGS: No fracture or dislocation. No arthritic change of the glenohumeral joint. Normal AC joint and portions of the clavicle included on the exam. No calcification of the rotator cuff. IMPRESSION: Normal. WSN: [id number] Ordering Physician: Romelia Almaguer Dictated By: Darvin Sanchez MD Dictated Date/Time: 01/31/22 1:36 pm Reviewed By: Darvin Sanchez MD Signed By: Darvin Sanchez MD Signed Date/Time: 01/31/22 1:36 pm Transcribed By: NIKI Transcribed Date/Time: 01/31/22 1:36 pm US Liver * [facility] , [facility] S: TRANSCRIBE Rojas Reid MD: VERIFY Event Display: Result: Authored Date: Ultrasound of the liver including Doppler evaluation of the portal vein. Findings There is no evidence of portal vein thrombosis. Flow within the main portal vein is hepatopedal. Common bile duct measures 4 mm within normal limits. No evidence of focal abnormality within the liver. IMPRESSION: Unremarkable evaluation the liver. No evidence of portal vein thrombosis. WSN: [id number] Ordering Physician: Zuleika Lawrence Dictated By: Rojas Reid MD Dictated Date/Time: 02/03/22 10:26 p Reviewed By: Rojas Reid MD Signed By: Rojas Reid MD Signed Date/Time: 02/03/22 10:26 pm Transcribed By: NIKI Transcribed Date/Time: 02/03/22 10:24 pm Patient Care team information Care Team Personnel Name: Rachel Bautista RN Position: [facility] RN Member Role: Primary Care Nurse Name: Cyndie Mancilla RN Position: [facility] RN Member Role: Primary Care Nurse Name: Josie Zuñgia RN Position: S RN Member Role: Primary [...] Care Nurse Name: Sebastien Fitzgerald MD Position: S Outreach Member Role: PCP Address: Address: [address] [place] [id number]- Name: Oriana Trinidad RN Position: S RN Member Role: Primary Care Nurse Name: Collette Dominguez RN Position: [facility] RN Member Role: Primary Care Nurse Name: Carine Cruz RN Position: [facility] RN Member Role: Primary Care Nurse Name: Norma Andres RN Position: [facility] RN Member Role: Primary Care Nurse Name: Elaine Mtz RN Position: [facility] RN Member Role: Primary Care Nurse Name: Ginny Rodriguez RN Position: [facility] RN Member Role: Primary Care Nurse Name: Natasha Salazar RN Position: [facility] RN Member Role: Primary Care Nurse Name: Laurie Ma RN Position: [facility] RN Member Role: Primary Care Nurse Name: Trixie Rocha LPN Position: [facility] RN Member Role: Primary Care Nurse Name: Katie Cox RN Position: [facility] RN Member Role: Primary Care Nurse Name: Antony ALCARAZ Attending Position: [facility] ED Medicine MD Name: Omar Barroso Position: [facility] ED TA [facility] Name: Briana Godwin Position: [facility] ED TA [facility] Name: Debbie Fitzgerald DO Position: [facility] Resident Member Role: ED Resident Address: Address: [address] [place] [address] [place] [address]- Name: Jayna Rachel Position: [facility] ED OA Charge Member Role: ED Associate Care Team Related Persons Name: POP DELUCA Address: home [address] [place] [id number]
--- OUTSIDE RECORDS SUMMARY | 2022-05-27 11:54 | XMS_ITS | Continuity of Care Document ---
Author Name Unknown Organization [facility] ter Address [address] [place] [id number] Care Team Providers Care Validation Analyst Name Role Phone Amilcar OCAMPO, Sebastien Monroe Primary Care Physician Encounter [facility] [place] Date(s): 12/22/21 - 12/31/[address] [address]- Encounter Diagnosis Endocarditis(Final) - 12/22/21 Bacteremia(Final) - 12/22/21 Septic embolism(Final) - 12/22/21 Hyperkalemia(Final) - 12/22/21 Discharge Disposition: A-D/C AMA Attending Physician: Marlyn Fischer MD Admitting Physician: Darvin Eli MD Referring Physician: Not on Staff, Referring [...] Tablet Start Date: 11/14/18 Status: Ordered gabapentin 300 mg oral capsule 300 mg, 1, capsule, By Mouth, 3 times a day, # 270 capsule, Refills 0, Maintenance, 11/14/18 8:55:12 EDT Start Date: 11/14/18 Status: Ordered gabapentin 300 mg oral capsule 300 mg, Capsule, By Mouth, 12/31/21 9:00:00 EDT Start Date: 12/31/21 Stop Date: 12/31/21 Status: Completed Methadone See Instructions, 125mg daily, 0 Refills, Maintenance, 02/15/19 1:50:59 EST, Partial fill upon patient request Start Date: 02/15/19 Status: Ordered Methadone Liquid 70 mg, Solution, By Mouth, 12/31/21 9:00:00 EDT Start Date: 12/31/21 Stop Date: 12/31/21 Status: Completed oxyCODONE 5 mg oral tablet 10 mg, Tablet, By Mouth, Every 6 hours, Hold for: RR under 12, sedation, PRN for Pain , Moderate, Routine, 12/27/21 11:16:00 EDT Start Date: 12/27/21 Stop Date: 01/01/22 Status: Discontinued prazosin 1 mg oral capsule 1 mg, [...] for Microbiology Reports Name Date Blood Culture 12/22/21 Blood Culture #2 12/22/21 Blood Culture 12/21/21 Blood Culture #2 12/21/21 Microbiology Reports TEST:Blood Culture STATUS:Auth (Verified) BODY SITE: SOURCE:Blood COLLECTED DATE/TIME:12/22/21 5:09 PM Blood Culture SPECIMEN DESCRIPTION : BLOOD RIGHT SPECIAL REQUESTS : NONE CULTURE : NO GROWTH 5 DAYS. REPORT STATUS : FINAL 12/27/2021 TEST:Blood Culture, Second Order STATUS:Auth (Verified) BODY SITE: SOURCE:Blood COLLECTED DATE/TIME:12/22/21 5:09 PM Blood Culture, Second Order SPECIMEN DESCRIPTION : BLOOD LEFT SPECIAL REQUESTS : NONE CULTURE : NO GROWTH 5 DAYS. REPORT STATUS : FINAL 12/27/2021 TEST:Blood Culture STATUS:Auth (Verified) BODY SITE: SOURCE:Blood COLLECTED DATE/TIME:12/21/21 8:53 PM Blood Culture SPECIMEN DESCRIPTION : BLOOD LEFT AC SPECIAL REQUESTS : NONE CULTURE : NO GROWTH 5 DAYS. REPORT STATUS : FINAL 12/26/2021 TEST:Blood Culture, Second Order STATUS:Auth (Verified) BODY SITE: SOURCE:Blood COLLECTED DATE/TIME:12/21/21 8:45 PM Blood Culture, Second Order SPECIMEN DESCRIPTION : BLOOD RIGHT AC SPECIAL REQUESTS : NONE CULTURE : NO GROWTH 5 DAYS. REPORT STATUS : FINAL 12/26/2021 Radiology Reports * Exam Date Time Procedure Performing Provider Status 12/22/21 8:06 AM Chest 2 Views Frontal and Lat Jarod , Margareth; Auth (Verified) Notes: (Chest 2 Views Frontal and Lat) Reason For Exam: Cough RESULT: Chest 2 Views Frontal and Lat Chest 2 Views Frontal and Lat Hx of Present Illness: [place] [facility] [place] being admitted for endocarditis and PNA. 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 Chest radiographs dated 12/20/2021. FINDINGS: LINES AND TUBES: None. LUNGS AND PLEURA: Continued resolution of bilateral multifocal lung opacities with mild residual changes in the left mid lung and the right posterior costophrenic sulcus. No new areas of parenchymal disease identified. No readily apparent cavitation. No pulmonary vascular congestion, pleural effusion or pneumothorax. HEART, MEDIASTINUM AND NELSY: Heart is normal in size. Normal mediastinal and hilar contour. BONES AND SOFT TISSUES: No acute abnormality. IMPRESSION: Resolving multifocal lung disease. No acute superimposed complication. WSN: [id number] Ordering Physician: Trudy Murcia Dictated By: Estrada Albrecht MD Dictated Date/Time: 12/22/21 8:41 am Reviewed By: Estrdaa Albrecht MD Signed By: Estrada Albrecht MD Signed Date/Time: 12/22/21 8:41 am Transcribed By: NIKI Transcribed Date/Time: 12/22/21 8:30 am Vital Signs Most recent to oldest [Reference Range]: 1 2 3 Oxygen Saturation [94-100 %] 98 % (12/31/21 8:21 AM) 98 % (12/31/21 4:26 AM) 96 % (12/31/21 12:07 AM) Pulse Rate [55-90 bpm] 77 bpm (12/31/21 8:21 AM) 77 bpm (12/31/21: AM) 91 bpm *H* (12/31/21 12:07 AM) Blood Pressure [90-138/55-84 mm Hg] 105/68mm Hg (12/31/21 8:21 AM) 103/76mm Hg (12/31/21 4:26 AM) 116/77mm Hg (12/31/21 12:07 AM) Respiratory Rate [16-30 br/min] 18 br/min (12/31/21 9:07 AM) 18 br/min (12/31/21 9:07 AM) 18 br/min (12/31/21 9:05 AM) Temperature [96.8-100.4 DegF] 97.9 DegF (12/31/21 8:21 AM) 97.9 DegF (12/31/21 4:26 AM) 98.9 DegF (12/31/21 12:07 AM) Mode of Delivery (Oxygen) Room air (12/31/21 8:21 AM) Room air (12/31/21 4:26 AM) Room air (12/31/21 12:07 AM) Blood pressure sites Arm, right (12/31/21 8:21 AM) Arm, left (12/31/21 4:26 AM) Arm, left (12/31/21 12:07 AM) Temperature Route Oral (12/31/21 8:21 AM) Oral (12/31/21 4:26 AM) Oral (12/31/21 12:07 AM) Social History Social History Type Response Smoking Status Current every day bessy ruiz entered on: 02/22/16 Sex Male Note * [facility] , CIS S: TRANSCRIBE Trena OCAMPO, Estrada Mcneil: VERIFY Event Display: Result: Authored Date: [id number] Chest 2 Views Frontal and Lat Hx of Present Illness: [place] [facility] [place] being admitted for endocarditis and PNA. 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 Chest radiographs dated 12/20/2021. FINDINGS: LINES AND TUBES: None. LUNGS AND PLEURA: Continued resolution of bilateral multifocal lung opacities with mild residual changes in the left mid lung and the right posterior costophrenic sulcus. No new areas of parenchymal disease identified. No readily apparent cavitation. No pulmonary vascular congestion, pleural effusion or pneumothorax. HEART, MEDIASTINUM AND NELSY: Heart is normal in size. Normal mediastinal and hilar contour. BONES AND SOFT TISSUES: No acute abnormality. IMPRESSION: Resolving multifocal lung disease. No acute superimposed complication. WSN: [id number] Ordering Physician: Trudy Murcia Dictated By: Estrada Albrecht MD Dictated Date/Time: 12/22/21 8:41 am Reviewed By: Estrada Albrecht MD Signed By: Estrada Albrecht MD Signed Date/Time: 12/22/21 8:41 am Transcribed By: NIKI Transcribed Date/Time: 12/22/21 8:30 am Patient Care team information Personnel Name: Sebastien Fitzgerald MD Address: Address: [address] [place] [address]
--- OUTSIDE RECORDS SUMMARY | 2022-05-27 11:54 | XMS_ITS | Continuity of Care Document ---
Author Name Unknown Organization [facility] ter Address [address] [place] [id number]- Care Team Providers Care Inspector Rag Sorting Name Role Phone Amilcar OCAMPO, Sebastien Monroe Primary Care Physician [phone] Encounter [facility] [place] Date(s): 02/09/22 - 02/12/[address] [address]- Encounter Diagnosis Elevated LFTs(Final) - 02/09/22 Discharge Disposition: A-D/C Home Attending Physician: Arcelia Fleming MD Admitting Physician: Carlos Selby MD Referring Physician: Not on Staff, Referring [...] tablet 4 mg, Tablet, By Mouth, Every 8 hours, PRN for Pain , Severe, Routine, 02/12/22 11:44:00 EST Start Date: 02/12/22 Stop Date: 02/13/22 Status: Discontinued Dilaudid 4 mg oral tablet 4 mg, Tablet, By Mouth, Every 4 hours, PRN for Pain , Severe, Routine, 02/09/22 16:00:00 EST Start Date: 02/09/22 Stop Date: 02/12/22 Status: Discontinued Methadone 140, By Mouth, Daily, 0 Refills, Maintenance, 01/19/22 22:53:00 EST, Partial fill upon patient request if the prescription is for a schedule II opioid drug. Start Date: 01/19/22 Status: Ordered Methadone Liquid 70 mg, Solution, By Mouth, Once, Routine, 02/12/22 13:00:00 EST, Stop date 02/12/22 13:00:00 EST Start Date: 02/12/22 Stop Date: 02/12/22 Status: Completed Problem List Condition Confirmation Course Effective Dates Status H ealth Status Informant Alcohol use Confirmed Active Bipolar disease Confirmed Active Bipolar disorder Confirmed Active Opioid dependence (heroin and cocaine) Confirmed Active Polysubstance abuse Confirmed Active Results Orders for Microbiology Reports Name Date Blood Culture 02/10/22 Blood Culture #2 02/10/22 Microbiology Reports TEST:Blood Culture, Second Order STATUS:Unauthenticated BODY SITE: SOURCE:Blood COLLECTED DATE/TIME:02/10/22 7:10 AM Blood Culture, Second Order SPECIMEN DESCRIPTION : BLOOD RAC SPECIAL REQUESTS : NONE CULTURE : NO GROWTH AFTER 48 HOURS REPORT STATUS : PRELIMINARY REPORT TEST:Blood Culture STATUS:Unauthenticated BODY SITE: SOURCE:Blood COLLECTED DATE/TIME:02/10/22 7:04 AM Blood Culture SPECIMEN DESCRIPTION : BLOOD RAC SPECIAL REQUESTS : NONE CULTURE : NO GROWTH AFTER 48 HOURS REPORT STATUS : PRELIMINARY REPORT Radiology Reports * Exam Date Time Procedure Performing Provider Status 02/08/22 10:56 PM Chest 2 Views Frontal and Lat Eitan Aden; Tootie (Verified) Notes: (Chest 2 Views Frontal and Lat) Reason For Exam: Chest Pain;Other: RESULT: Chest 2 Views Frontal and Lat Chest 2 Views Frontal and Lat Hx of Present Illness: Pt stated, CP, palpitations dizziness, IV endorses cocaine and heroine use approx 2 hours ago, recently treated for endocarditis last antibiotic dose 12 1; Reason: Other:; Chest Pain; Clinical Question(s): Other: COMPARISON: Multiple priors, including 01/19/2022. FINDINGS: LINES AND TUBES: None. LUNGS AND PLEURA: No focal consolidation or overt pulmonary edema. Stable scarring in the peripheral mid left chest. No pleural effusion. No pneumothorax. HEART, MEDIASTINUM AND NELSY: Heart is normal in size. Normal mediastinal and hilar contour. BONES AND SOFT TISSUES: No acute abnormality. IMPRESSION: No acute abnormality. WSN: [id number] Ordering Physician: Kelly Harrell Dictated By: Paul Cota MD Dictated Date/Time: 02/08/22 11:05 p Reviewed By: Paul Cota MD Signed By: Paul Cota MD Signed Date/Time: 02/08/22 11:05 pm Transcribed By: NIKI Transcribed Date/Time: 02/08/22 11:02 pm Vital Signs Most recent to oldest [Reference Range]: 1 2 3 Height 167.6 cm (02/12/22 6:09 AM) 167.6 cm (02/11/22 9:13 PM) 167.6 cm (02/11/22 2:39 PM) Weight 63.6 kg (02/10/22 4:53 PM) 63.6 kg (02/10/22 9:42 AM) 63.6 kg (02/10/22 3:03 AM) Oxygen Saturation [94-100 %] 99 % (02/12/22 6:09 AM) 95 % (02/11/22 9:13 PM) 98 % (02/11/22 2:39 PM) Pulse Rate [55-90 bpm] 70 bpm (02/12/22 6:09 AM) 55 bpm (02/11/22 9:13 PM) 62 bpm (02/11/22 2:39 PM) Body Mass Index [18.5-24.99 kg/m2] 22.64 kg/m2 (02/10/22 4:53 PM) 22.64 kg/m2 (02/10/22 9:42 AM) Blood Pressure [90-138/55-84 mm Hg] 98/50mm Hg (02/12/22 6:09 AM) 119/69mm Hg (02/11/22 9:13 PM) 121/72mm Hg (02/11/22 2:39 PM) Respiratory Rate [16-30 br/min] 16 br/min (02/12/22 2:41 PM) 18 br/min (02/12/22 2:03 PM) 16 br/min (02/12/22 10:07 AM) Temperature [96.8-100.4 DegF] 97.9 DegF (02/12/22 6:09 AM) 98.3 DegF (02/11/22 9:13 PM) 98.1 DegF (02/11/22 2:39 PM) Mode of Delivery (Oxygen) Room air (02/12/22 6:09 AM) Room air (02/11/22 9:13 PM) Room air (02/11/22 2:39 PM) Blood pressure sites Arm, right (02/12/22 6:09 AM) Arm, right (02/11/22 9:13 PM) Arm, right (02/11/22 2:39 PM) Temperature Route Oral (02/12/22 6:09 AM) Oral (02/11/22 9:13 PM) Oral (02/11/22 2:39 PM) Dry Weight 63.6 kg (02/10/22 4:53 PM) 63.6 kg (02/10/22 9:42 AM) 63.6 kg (02/10/22 3:03 AM) Weight Obtained Via Patient/family state d (02/10/22 3:03 AM) Dry Weight Obtained Via Patient/family s tated (02/10/22 3:03 AM) Social History Social History Type Response Tobacco No Sex Male Admission evaluation note * Jono Chau: PERFORM, MODIFY, MODIFY, MODIFY Event Display: Admission Note Authored Date: Patient: ??JANAE HANDY ? Age:??31 Years?Sex:??Male?:??1990?? Chief Complaint/Reason for Consultation Chest pain History of Present Illness 31-year-old male, who left A yesterday with elevated liver enzymes, after being treated for??endocarditis with bilateral pulmonary septic emboli presents with chest pain. ??The left ear??and used ??a few bags??of heroin??and some cocaine he then returned to the emergency department complaining of chest pain.?The chest pain is the same??he has had the past few months. ??He was ruled out forACS.?? Liver enzymes remain elevated.?? Very mild leukocytosis noted.?? He was admitted for furthermanagement. ??Currently??he??denies fever, CP, SOB, abdominal pain, bowel or bladder complaints. Review of Systems CONSTITUTIONAL: ??Denies any fever, chills, changes to weight or fatigue. EYES: Denies any changes to vision, burning or diplopia. HEENT: Denies any INFANTE, nasal d/c, nose bleeds, changes to voice, vertigo, photophobia, hearing changes or dental problems. CV: Denies any CP, orthopnea, PND, edema, palpitations. PULM: Denies any SOB, wheezing, cough or [...] Denies any depression or anxiety. SIGECAPS negative. ? Objective Vital Signs?? Temperature: 97.8 DegF (02/09/22:09:00) Temperature Route: Oral (02/09/22:09:00) Pulse Rate: 86 bpm (02/09/22:09:00) Respiratory Rate: 18 br/min (02/09/22 08:34:00) Systolic Blood Pressure: 107 mm Hg (02/09/22:09:00) Diastolic Blood Pressure:??52 mm Hg??Low (02/09/22:09:00) Blood pressure sites: Arm, right (02/09/22:09:00) Mean Arterial Pressure: 70 mm Hg (02/09/22:09:00) Pulse Pressure: 55 mm Hg (02/09/22 11:09:00) Oxygen Saturation: 98 % (02/09/22 11:09:00) Mode of Delivery (Oxygen): Room air (02/09/22 11:09:00) ? Physical Exam General:??31 year old??male??lies in bed comfortably in no [...] Neuro: A&OX3, no focal motor deficits Assessment/Plan 31-year-old male, who left AMA yesterday with elevated liver enzymes, after being treated for??endocarditis with bilateral pulmonary septic emboli presents with chest pain.? Chest pain History of endocarditis Elevated LFTs Is having the same chronic chest pain.?ACS ruled out. Cocaine use may be contributing.?? Long-term effects of recent COVID infection, endocarditis and??septic pulmonary emboli may be contributing He has completed treatment??for endocarditis. ??However his echocardiogram??revealed persistent??vegetation. ??Per infectious disease??vegetation may be sterile,??he should have blood cultures on 02/10 GI thought the elevated??LFTs may be??cocaine induced.?? They??would like to??check hepatitis C??labs??and trend LFTs. ?? Plan Dilaudid as needed for chest pain Check blood cultures Trend LFTs Check hepatitis C labs Consulted GI for further recommendations ?? Chronic medical conditions Opioid use disorder: Continue??methadone??70 mg twice daily ?? DVT: Pneumoboots Code: Full Diet: Regular ? Histories Allergies Allergies ?(Active and Proposed [...] Recent Labs BLOOD COUNT & DIFF WBC 11.2 k/mm3 (High)?? 02/08/2022 21:40 RBC 4.73 m/mm3 ()?? 02/08/2022 21:40 Hgb 14.3 Gm/dL ()?? 02/08/2022 21:40 Hct 43.0 % ()?? 02/08/2022 21:40 MCV 90.9 femtoliters ()?? 02/08/2022 21:40 MCH 30.2 pg ()?? 02/08/2022 21:40 MCHC 33.3 g/dL ()?? 02/08/2022 21:40 Platelet Count 155 k/mm3 ()?? 02/08/2022 21:40 RDW-SD 49.1 femtoliters (High)?? 02/08/2022 21:40 MPV 8.4 femtoliters (Low)?? 02/08/2022 21:40 Nucleated RBC (Automated) 0.0 #/100 WBC'S ()?? 02/08/2022 21:40 Abs. NRBC 0.0 k/mm3 ()?? 02/08/2022 21:40 Abs. Neut 9.1 k/mm3 (High)?? 02/08/2022 21:40 Abs. Lymph 0.9 k/mm3 ()?? 02/08/2022 21:40 Abs. [place] 1.1 k/mm3 ()?? 02/08/2022 21:40 Abs. Eo 0.0 k/mm3 ()?? 02/08/2022 21:40 Abs. Baso 0.1 k/mm3 ()?? 02/08/2022 21:40 Neut % 81.4 % (High)?? 02/08/2022 21:40 Lymph % 7.7 % (Low)?? 02/08/2022 21:40 [place] % 9.9 % ()?? 02/08/2022 21:40 Eos % 0.1 % ()?? 02/08/2022 21:40 Baso % 0.4 % ()?? 02/08/2022 21:40 Imm Gran 0.5 % ()?? 02/08/2022 21:40 Abs. Imm Gran 0.1 k/mm3 ()?? 02/08/2022 21:40 ?? CARDIAC Nt-Probnp 119 pg/mL ()?? 02/08/2022 21:40 High Sensitivity Troponin (HSTnT) <6 ng/L ()?? 02/08/2022 21:40 ?? CHEM GENERAL Sodium 136 mmol/L ()?? 02/08/2022 21:40 Potassium 4.3 mmol/L ()?? 02/08/2022 21:40 Chloride 99 mmol/L ()?? 02/08/2022 21:40 Bicarbonate Level 22 mmol/L ()?? 02/08/2022 21:40 Anion Gap 15 ()?? 02/08/2022 21:40 Glucose Level 105 mg/dL (High)?? 02/08/2022 21:40 BUN 22 mg/dL (High)?? 02/08/2022 21:40 Creatinine-Blood 0.9 mg/dL ()?? 02/08/2022 21:40 Estimated GFR Creatinine 118 ML/MIN/1.73 M2 ()?? 02/08/2022 21:40 Calcium 9.5 mg/dL ()?? 02/08/2022 21:40 Protein, Total 7.0 Gm/dL ()?? 02/08/2022 04:46 Albumin 4.4 Gm/dL ()?? 02/08/2022 04:46 Alkaline Phosphatase 106 units/L ()?? 02/08/2022 04:46 Lipase 12 units/L (Low)?? 02/08/2022 21:40 AST (SGOT) 410 units/L (High)?? 02/08/2022 21:40 ALT (SGPT) 687 units/L (High)?? 02/08/2022 21:40 Bilirubin, Total 0.9 mg/dL ()?? 02/08/2022 21:40 Bilirubin, Direct 0.2 mg/dL ()?? 02/08/2022 21:40 Bilirubin, Indirect 0.7 mg/dL ()?? 02/08/2022 21:40 ?? HEME OTHER Hold Blue Top SPECIMEN DISCARDED AFTER 4 HOURS. ()?? 02/08/2022 21:40 ?? TOXICOLOGY/TDM Ethanol, Serum or Plasma NONE DETECTED mg/dL ()?? 02/08/2022 21:40 ? EKG study * Event Display: ECG 12-Lead Authored Date: Please click on pdf link to open report * Event Display: ECG 12-Lead Authored Date: Ventricular Rate: 63 BPM Atrial Rate: 63 BPM P-R Interval: 132 ms QRS Duration: 104 ms Q-T Interval: 426 ms QTC Calculation(Bazett): 435 ms P [place]: 50 degrees R [place]: 57 degrees T [place]: 33 degrees Normal sinus rhythm Normal ECG When compared with ECG of 08-FEB-2022 21:14, Vent. rate has decreased BY 59 BPM Nonspecific T wave abnormality has replaced inverted T waves in Inferior leads Confirmed by ROGELIO WINTERS DO ([id number]) on 02/11/2022 11:12:52 AM [place]: ROGELIO WINTERS DO * Event Display: EKG Authored Date: * Event Display: ECG 12-Lead Authored Date: Please click on pdf link to open report * Event Display: ECG 12-Lead Authored Date: Ventricular Rate: 122 BPM Atrial Rate: 122 BPM P-R Interval: 134 ms QRS Duration: 94 ms Q-T Interval: 338 ms QTC Calculation(Bazett): 481 ms P [place]: 72 degrees R [place]: 85 degrees T [place]: 29 degrees Sinus tachycardia Possible Left atrial enlargement Incomplete right bundle branch block Borderline ECG When compared with ECG of 21-JAN-2022 00:12, Inverted T waves have replaced nonspecific T wave abnormality in Inferior leads Confirmed by JAMES MALAVE ([id number]) on 02/10/2022 9:25:53 AM [place]: JAMES MALAVE [facility] Progress note * Shiv Brown RN: PERFORM, SIGN, VERIFY Event Display: Progress Note Hospital Authored Date: Patient: JANAE HANDY Age: 31 years Sex: Male : 1990 Associated Diagnoses: None Author: Shiv Brown RN Findings Evaluation Patient alert and oriented x4, patient complained of pain several times today, medicated with good effect. Patient's d/c instructions given to patient, letter given to patient for the Methadone clinic, IV access removed and tip intact. Bed low and locked, safety maintained during shift. . Discharge Information Case Management Discharge Plan : Case Management Discharge Plan Data 02/12/2022 9:00 EST Discharge Level of Care at Discharge Home/Fpc/Foster Care 02/08/2022 13:27 EST Discharge Level of Care at Discharge Left Against Medical Advice * Zhane Dean RN: SIGN, VERIFY, PERFORM Event Display: Progress Note Hospital Authored Date: Patient: JANAE HANDY Age: 31 years Sex: Male : 1990 Associated Diagnoses: None Author: Zhane Dean RN Findings Problem Related to Alteration in Comfort : Alteration in Comfort/new 02/12/2022 1:00 EST Alteration in Comfort Related to Disease process Goals & Outcomes: Comfort Pt will report acceptable level of comfort & pain control, Pt will state importance of adhering to pain strategy regime, Pt will demonstrate necessary skills to manage pain Interventions Implemented: Comfort Assess pain using appropriate pain scale/tools, Assess aggravating factors & prevent them accordingly, Assess alleviating factors & promote them accordingly BH Goals/Interventions, Comfort Yes Comfort, Problem Start 02/12/2022 1:18 Reviewed plan with, Comfort Patient Patient Progression, Comfort Plan Initiation Comfort, Problem Ongoing Yes . Nursing Data Vital Signs : VITAL SIGNS SECTION 02/11/2022 21:13 EST Temperature 98.3 DegF Temperature Route Oral Pulse Rate 55 bpm Respiratory Rate 16 br/min Systolic Blood Pressure 119 mm Hg Diastolic Blood Pressure 69 mm Hg Blood pressure sites Arm, right Mean Arterial Pressure 86 mm Hg Pulse Pressure 50 mm Hg Oxygen Saturation 95 % Mode of Delivery (Oxygen) Room air . Narrative/Incidental pt is aox3, able to make needs known, ambulates with steady gait. scheduled dilaudid and methadone administered. states chest pain is ongoing for months d/t past diagnosis of endocarditis. LSCTA. +bsx4. VSS, afebrile. callbell is within reach. hourly rounding. . Discharge Information Case Management Discharge Plan : Case Management Discharge Plan Data 02/08/2022 13:27 EST Discharge Level of Care at Discharge Left Against Medical Advice * Shiv Brown RN: PERFORM, SIGN, VERIFY Event Display: Progress Note Hospital Authored Date: [id number] Patient: JANAE HANDY Age: 31 years Sex: Male : 1990 Associated Diagnoses: None Author: Shiv Brown RN Findings Evaluation Patient alert and oriented x4. Patient complained of chest pain due to endocarditis, pain 7-8, medicated with good effect. Patient does not complain of anything else otherwise, pleasant, ambulateson his own. Patient not a high falls risk. Bed low and locked, safety maintained during shift. . Discharge Information Case Management Discharge Plan : Case Management Discharge Plan Data 02/08/2022 13:27 EST Discharge Level of Care at Discharge Left Against Medical Advice Note * Lonnie OCAMPO, Arcelia Moncada: PERFORM Event Display: Discharge/Transfer Note Hospital Authored Date: [id number] Patient: ??JANAE HANDY ? Age:??31 Years?Sex:??Male?:??1990?? Patient Information Discharge Location: 4 Primary Care Physician: Sebastien Fitzgerald MD Admit Date/Time: 02/09/22 11:34 Discharge Disposition Discharge Disposition: ??fdc Discharge Diagnosis Elevated LFTs (R79.89) ?? _ Discharge Medications Methadone?140?By Mouth?Daily - will get from methadone??clinic ? Allergies Allergies ?(Active and Proposed Allergies Only) ibuprofen? (Severity: Unknown severity, Onset: Unknown) ? Future Appointments Sunday 11:20 AM EST ?? With: Roland OCAMPO, Adolph Mckeon Where: [facility] Infectious Disease [address] [place] [address]- Hospital Course This is a 31-year-old male??with endocarditis??diagnosed 12/14 who received treatment??intermittently and leaving [facility] without completing treatment presented with pleuritic chest pain which has been happening for a long??time. LFT slowly trending down. VSS, chronic left sided chest pain ?? SW consulted for homelessness and PSA, methadone clinic. Appreciate help. He will go back to his previous fdc and his methadone clinic on [facility]. Last dose of methadone 140mg on 02/12/22. Pt phone number is [phone]. ?? Clinically and hemodynamically stable for discharge To follow-up with primary care physician, GI and Infectious disease as outpatient. ?? Assessment and plan during hospitalization as below- ?? Elevated transaminases - slowly trending down Hepatitis C - untreated Suspected cocaine induced hepatic injury p/w elevated Hep c RNA quantitative PCR Ultrasound liver Doppler without significant finding, CT abdomen pelvis without??any significant liver findings Ceruloplasmin ??and acetaminophen and iron??level normal??in previous admission normal??alpha-1 antitrypsin antibody f/u anti-AMA, anti-smooth muscle antibodies pending Outpatient follow-up with GI/ID for further management of hepatitis C and transaminitis Patient might need liver biopsy if??LFTs continue to??be up. ?? Endocarditis/Bilateral pulmonary septic emboli to lung- treated. COVID-positive??01/13 Chest pain p/w pleuritic CP likely in setting on endocarditis and recent COVID-19 Has received incomplete treatment of endocarditis??since he leaves [place] and does not complete 6 weeks?? Has ongoing??substance abuse with positive??tox screen, BC (01/19) negative final He was going to receive long-active intravenous antibiotic therapy (oritavancin) on??01/20, was prepared,??held for him, however he left A??therefore dose was discarded Repeat TTE 01/30 noted persistent tricuspid vegetation (large mobile vegetation (1.0 x 0.9 cm) noted on the tricuspid valve. There is severe tricuspid valve regurgitation. EF 55-60%. Comparing to previous echo vegetation??is almost the same, tricuspid regurg getting worse. Finished antibiotic Seen by cardiac surgery,??no surgery??indicated at this point surveillance BC 1 week after stopping abx- antibiotic stopped on 02/03 - surveillance blood culture sent on 02/10/2022. ??Negative for 24 hours on Dilaudid 4mg q4hr prn for chest pain ?? Opioid use disorder Homeless condition Continue methadone 70 mg twice daily for now on Dilaudid 4mg q4hr prn for chest pain he has not been following with any methadone clinic for a couple months and has been using street drugs when not in hospital Social work consulted for homelessness and polysubstance abuse appreciate help??with setting up??fdc and methadone clinic. ?? Quality Measures: VTE Prophylaxis:??Lovenox Code Status:??Full ?Disclaimer: ??This note ??was accomplished with use of [employer] voice recognition software, which is prone to medical and other word misidentifications and grammatical errors. ??The physician does strive to identify and correct these, but some could still be present. ??Please do not hesitate to contact the physician for clarifications. Objective . Physical Exam no acute distress abdomen soft, NT, ND no leg edema no focal deficits, AAOx3, ambulating dependently Consultants GI Pending Results ALT ordered on 02/10/2022 AST ordered on 02/10/2022 Add On Lab Order ordered on 02/09/2022 Add On Lab Order ordered on 02/09/2022 Add On Lab Order ordered on 02/10/2022 Albumin Level ordered on 02/10/2022 Alk Phos ordered on 02/10/2022 BUN ordered on 02/10/2022 Bilirubin Total + Direct ordered on 02/10/2022 Blood Culture ordered on 02/10/2022 Blood Culture #2 ordered on 02/10/2022 Creatinine ordered on 02/10/2022 Electrolytes ordered on 02/10/2022 Hepatitis C Ab ordered on 02/10/2022 Hepatitis C Ab ordered on 02/10/2022 Hepatitis C RNA PCR Quant ordered on 02/10/2022 Hepatitis C RNA PCR Quant ordered on 02/12/2022 Total Protein ordered on 02/10/2022 Follow-Up Appointments Added Follow Up ?Time Frame ?Comments Not on Staff, PCP?1 week: call to discuss follow up visit Patient Instructions We have set up for you to go back to homeless fdc on [facility] We have also set up with our clinic on [facility], last dose is 140 mg on 02/12/2022 Please follow-up with GI??and infectious disease clinic as outpatient GI clinic will call you for an appointment ?Sunday ??2021 ??11:20 AM EST ?With: Roland OCAMPO, Adolph Mckeon ?Where: [facility] Infectious Disease [address] [place] [address] ??[place] [address]- Home Health Face to Face ^HomeHealthFTF Results Discharge Labs BLOOD COUNT & DIFF WBC 5.7 k/mm3 ()?? 02/11/2022 05:30 RBC 4.30 m/mm3 (Low)?? 02/11/2022 05:30 Hgb 13.0 Gm/dL (Low)?? 02/11/2022 05:30 Hct 39.2 % (Low)?? 02/11/2022 05:30 MCV 91.2 femtoliters ()?? 02/11/2022 05:30 MCH 30.2 pg ()?? 02/11/2022 05:30 MCHC 33.2 g/dL ()?? 02/11/2022 05:30 Platelet Count 150 k/mm3 ()?? 02/11/2022 05:30 RDW-SD 48.9 femtoliters (High)?? 02/11/2022 05:30 MPV 9.2 femtoliters (Low)?? 02/11/2022 05:30 Nucleated RBC (Automated) 0.0 #/100 WBC'S ()?? 02/11/2022 05:30 Abs. NRBC 0.0 k/mm3 ()?? 02/11/2022 05:30 Abs. Neut 2.6 k/mm3 ()?? 02/11/2022 05:30 Abs. Lymph 1.5 k/mm3 ()?? 02/11/2022 05:30 Abs. [place] 1.2 k/mm3 ()?? 02/11/2022 05:30 Abs. Eo 0.3 k/mm3 ()?? 02/11/2022 05:30 Abs. Baso 0.1 k/mm3 ()?? 02/11/2022 05:30 Neut % 45.9 % ()?? 02/11/2022 05:30 Lymph % 26.9 % ()?? 02/11/2022 05:30 Surry % 21.1 % (High)?? 02/11/2022 05:30 Eos % 4.9 % ()?? 02/11/2022 05:30 Baso % 0.9 % ()?? 02/11/2022 05:30 Imm Gran 0.3 % ()?? 02/11/2022 05:30 Abs. Imm Gran 0.0 k/mm3 ()?? 02/11/2022 05:30 ?? CARDIAC Nt-Probnp 119 pg/mL ()?? 02/08/2022 21:40 High Sensitivity Troponin (HSTnT) <6 ng/L ()?? 02/11/2022 09:25 ?? CHEM GENERAL Sodium 136 mmol/L ()?? 02/12/2022 01:00 Potassium 4.4 mmol/L ()?? 02/12/2022 01:00 Chloride 100 mmol/L ()?? 02/12/2022 01:00 Bicarbonate Level 27 mmol/L ()?? 02/12/2022 01:00 Anion Gap 9 ()?? 02/12/2022 01:00 Glucose Level 76 mg/dL ()?? 02/11/2022 05:30 BUN 13 mg/dL ()?? 02/11/2022 05:30 Creatinine-Blood 0.7 mg/dL ()?? 02/11/2022 05:30 Estimated GFR Creatinine 126 ML/MIN/1.73 M2 ()?? 02/11/2022 05:30 Calcium 9.1 mg/dL ()?? 02/11/2022 05:30 Protein, Total 6.7 Gm/dL ()?? 02/12/2022 01:00 Albumin 4.3 Gm/dL ()?? 02/12/2022 01:00 AG Ratio 1.8 ()?? 02/11/2022 05:30 Alkaline Phosphatase 90 units/L ()?? 02/12/2022 01:00 Lipase 12 units/L (Low)?? 02/08/2022 21:40 AST (SGOT) 291 units/L (High)?? 02/12/2022 01:00 ALT (SGPT) 500 units/L (High)?? 02/12/2022 01:00 Bilirubin, Total 0.8 mg/dL ()?? 02/12/2022 01:00 Bilirubin, Direct 0.2 mg/dL ()?? 02/12/2022 01:00 Bilirubin, Indirect 0.6 mg/dL ()?? 02/12/2022 01:00 ?? HEME OTHER Hold Lavender Top SPECIMEN DISCARDED AFTER 24 HOURS. ()?? 02/12/2022 01:00 Hold Blue Top SPECIMEN DISCARDED AFTER 4 HOURS. ()?? 02/08/2022 21:40 ?? IMMUNOLOGY GENERAL [id number] 174 mg/dL ()?? 02/10/2022 20:54 ? TOXICOLOGY/TDM Ethanol, Serum or Plasma NONE DETECTED mg/dL ()?? 02/08/2022 21:40 Barbiturate Screen, Urine NONE DETECTED ()?? 02/10/2022 12:37 Cannabinoid Screen, Urine POSITIVE (Abnormal)?? 02/10/2022 12:37 Cocaine Metabolite Screen, Urine POSITIVE (Abnormal)?? 02/10/2022 12:37 Benzodiazepine Screen, Urine NONE DETECTED ()?? 02/10/2022 12:37 Amphetamine Screen, Urine NONE DETECTED ()?? 02/10/2022 12:37 Opiate Screen, Urine POSITIVE (Abnormal)?? 02/10/2022 12:37 ? UA/URINALYSIS Appear/Color, Urine LIGHT YELLOW ()?? 02/10/2022 12:37 Specific [place], Urine 1.011 ()?? 02/10/2022 12:37 pH, Urine 6.0 ()?? 02/10/2022 12:37 Albumin, Urine NEGATIVE ()?? 02/10/2022 12:37 Glucose, Urine NEGATIVE ()?? 02/10/2022 12:37 Ketones, Urine NEGATIVE ()?? 02/10/2022 12:37 Bilirubin, Urine NEGATIVE ()?? 02/10/2022 12:37 Hemoglobin, Urine NEGATIVE ()?? 02/10/2022 12:37 Nitrite, Urine NEGATIVE ()?? 02/10/2022 12:37 Leukocyte, Urine NEGATIVE ()?? 02/10/2022 12:37 Urobilinogen NORMAL mg/dL ()?? 02/10/2022 12:37 WBC's, Urine <1 /HPF ()?? 02/10/2022 12:37 RBC's, Urine <1 /HPF ()?? 02/10/2022 12:37 Hold Urine Culture Testing available 48 hours from time of collection. ()?? 02/10/2022 12:37 ? Impression and Plan ?31-year-old man with history of bipolar disorder, polysubstance abuse, untreated Hepatitis C, and recently diagnosed endocarditis with tricuspid vegetation, severe TR and septic emboli to the lungs, who was recently admitted for pleuritic chest pain in the setting of endocarditis and was noted to have elevated LFTs (peak AST/ALT 496/632) for which GI was following, re-presents with chest painand GI is re-consulted for elevated LFTs and untreated Hepatitis C. 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Patient discussed with attending physician Dr. Black ?Fortino Saenz MD?Gastroenterology Fellow - PGY 4?? [1] _40 ??minutes spent on discharge [1]??Gastroenterology Consult Note; Fortino Saenz MD 02/09/2022 17:33 EST * Shiv Brown RN: PERFORM Event Display: Discharge/Transfer Note Hospital Authored Date: [id number] Nursing Discharge Note Entered On: 02/12/2022 15:56 EST Performed On: 02/12/2022 9:00 EST by Shiv Brown RN Nursing Discharge Note 2 Discharge Time : 02/12/2022 15:35 EST Discharge Level of Care at Discharge : Home/Fpc/Foster Care Patient Left Unit Via : Ambulatory Patient Accompanied Off Unit with : Responsible adult DC Instructions Provided & Signed by Pt : Yes Patient Understands D/C Instructions : Yes Patient Instructions Discharge Signed : Yes Did Pt have Specialty Bed or Wound Vac : No Shiv Brown RN - 02/12/2022 15:55 EST * Shiv Brown RN: PERFORM Event Display: Patient Education/Instruction Authored Date: [id number] Inpatient Adult Discharge Instructions [address] [id number] Name: JANAE HANDY : 1990 Visit: 02/09/2022 11:34:00 Current Date: 02/12/2022 14:21 Account: [id number] Inpatient Adult Discharge Instructions We would like to thank you for allowing us to assist you with your healthcare needs. The following includes patient education materials and information regarding your injury/illness. Our entire staffstrives to provide an excellent experience for our patients and their families. PLEASE ENSURE YOU FOLLOW-UP PER THE INSTRUCTIONS BELOW! ?? YOUR OPINION IS IMPORTANT TO US! Please complete the survey you may receive by mail or email. Your feedback will be used to make improvements to the healthcare experiences of our patients and their families. Surveys are administered by [employer] ?? If further treatment with your primary care physician or another doctor is recommended, it is important for you to keep the appointment. Call your primary care physician or return to the Emergency Department immediately if your condition worsens, fails to improve, or new symptoms develop. If you need to find a doctor, you can call [facility] for a referral at [phone] or toll free at [phone]) or log in to [email or web address] audience.. ?? You can view and manage your care through the patient portal or by using a health care millie of your choosing. [employer] is a website that allows you to securely view your medical information including your hospital discharge summary, office visit summaries, medications and follow-up visits. You can also request appointments, renew medications, and request access to your medical information using a health care millie of your choosing, or just ask a question. You can enroll at [email or web address] or register during your next office visit. You have been discharged from [facility], Patient Care Unit: S64. If you have any questions regarding these instructions after you leave, please call us and we will be happy to assist you. [facility] Your Care Team Attending Physician Lonnie OCAMPO, Arcelia Moncada Consulting Providers Angelina Black MD Discharging Providers Arcelia Fleming MD Reason for Admission General medical Your Diagnosis Elevated LFTs Tests Performed Below is a partial list of the tests performed during your hospitalization. You may have had other tests and procedures not included in this list. Please discuss all test results with your provider. Albumin Level Alk Phos Alpha1 Antitrypsin ALT Amphetamine Urine Screen ANTI-HEPATITIS C?-- Results Pending -- AST B Type Natriuretic Peptide Barbiturate Urine Screen Basic Metabolic Panel Benzodiazepine Urine Screen Bilirubin Total + Direct BUN?-- Results Pending -- Cannabinoid Urine Screen CBC CBC w/ Differential Cocaine Urine Screen Comprehensive Metabolic Panel CREATININE?-- Results Pending -- ELECTROLYTES ETHANOL High??Sensitivity??Troponin T Hold Blue Top Tube HOLD LAVENDER TUBE LIPASE Opiate Screen Urine Total Protein Troponin T, High Sensitivity Urinalysis w/hold for Urine Culture XR Chest 2 Views Frontal and Lat ? You will be contacted within 72 hours with your results. Primary Care Provider Sebastien Fitzgerald MD Advance Directive Health Care Proxy on File Yes - Health Care Proxy No qualifying data available. Discharge Vitals Temperature: 97.9 DegF Height: 167.6 cm Pulse Rate: 70 bpm Weight: 63.6 kg Respiratory Rate: 18 br/min Body Mass Index: 22.64 kg/m2 Systolic Blood Pressure: 98 mm Hg Body surface area: 1.72 Diastolic Blood Pressure:??50 mm Hg??Low ?? Oxygen Saturation: 99 % ?? Studies Pending All tests and labs ordered during this hospital stay have been completed unless listed below. Please discuss all pending results with your provider listed above in these instructions. ?? ALT AST Add On Lab Order (Lab Add On Order) Albumin Level Alk Phos BUN Bilirubin Total + Direct Blood Culture Blood Culture #2 Creatinine Electrolytes Hepatitis C Ab (ANTI-HEPATITIS C) Hepatitis C RNA PCR Quant Total Protein What to do next Instructions From Your Doctor Discharge Orders Scheduled Follow-Up Appointments Sunday 11:20 AM EST ?? With: Roland OCAMPO, Adolph Mckeon Where: [facility] Infectious Disease [address] [place] [address]- You Need to Schedule the Following Appointments Follow Up with??Not on Staff, PCP When??Within 1 week: call to discuss follow up visit Where: Discharge Medications JANAE HANDY :1990 Visit Date:02/09/2022 Medications: Please continue your medications until treatment is completed or stopped by your provider. Medications not listed below should be discontinued. Discuss any questions related to medications with your provider. What How Much When Instructions Next Dose Unchanged Methadone 140 Oral Daily 02/13/22 Test Results Below is a partial list of the most recent Laboratory test results done prior to this discharge. You may have had other tests and procedures not included in this list. Please discuss all test resultswith your provider. Albumin Level (02/12/2022) ???Albumin - 4.3 Gm/dL Alk Phos (02/12/2022) ???Alkaline Phosphatase - 90 units/L Alpha1 Antitrypsin (02/10/2022) ???Egbwy-5-Glcepudlozq - 174 mg/dL ALT (02/12/2022) ???ALT (SGPT) - 500 units/L Amphetamine Urine Screen (02/10/2022) ???Amphetamine Screen, Urine - NONE DETECTED AST (02/12/2022) ???AST (SGOT) - 291 units/L B Type Natriuretic Peptide (02/08/2022) ???Nt-Probnp - 119 pg/mL Barbiturate Urine Screen (02/10/2022) ???Barbiturate Screen, Urine - NONE DETECTED Basic Metabolic Panel (02/08/2022) ???Sodium - 136 mmol/L???Potassium - 4.3 mmol/L???Chloride - 99 mmol/L???Bicarbonate Level - 22 mmol/L???Anion Gap - 15???Glucose Level - 105 mg/dL???BUN - 22 mg/dL???Creatinine-Blood - 0.9 mg/dL???Estimated GFR Creatinine - 118 ML/MIN/1.73 M2???Calcium - 9.5 mg/dL Benzodiazepine Urine Screen (02/10/2022) ???Benzodiazepine Screen, Urine - NONE DETECTED Bilirubin Total + Direct (02/12/2022) ???Bilirubin, Total - 0.8 mg/dL???Bilirubin, Direct - 0.2 mg/dL???Bilirubin, Indirect - 0.6 mg/dL Cannabinoid Urine Screen (02/10/2022) ???Cannabinoid Screen, Urine - POSITIVE CBC (02/10/2022) ???WBC - 5.7 k/mm3???RBC - 4.10 m/mm3???Hgb - 12.4 Gm/dL???Hct - 38.0 %???MCV - 92.7 femtoliters???MCH - 30.2 pg???MCHC - 32.6 g/dL???Platelet Count - 126 k/mm3???RDW-SD - 50.3 femtoliters???MPV - 9.1 femtoliters???Nucleated RBC (Automated) - 0.0 #/100 WBC'S???Abs. NRBC - 0.0 k/mm3 CBC w/ Differential (02/11/2022) ???WBC - 5.7 k/mm3???RBC - 4.30 m/mm3???Hgb - 13.0 Gm/dL???Hct - 39.2 %???MCV - 91.2 femtoliters???MCH - 30.2 pg???MCHC - 33.2 g/dL???Platelet Count - 150 k/mm3???RDW-SD - 48.9 femtoliters???MPV - 9.2 femtoliters???Nucleated RBC (Automated) - 0.0 #/100 WBC'S???Abs. NRBC - 0.0 k/mm3???Abs. Neut - 2.6 k/mm3???Abs. Lymph - 1.5 k/mm3???Abs. [place] - 1.2 k/mm3???Abs. Eo - 0.3 k/mm3???Abs. Baso - 0.1 k/mm3???Neut % - 45.9 %???Lymph % - 26.9 %???[place] % - 21.1 %???Eos % - 4.9 %???Baso % - 0.9 %???Imm Gran - 0.3 %???Abs. Imm Gran - 0.0 k/mm3 Cocaine Urine Screen (02/10/2022) ???Cocaine Metabolite Screen, Urine - POSITIVE Comprehensive Metabolic Panel (02/11/2022) ???Sodium - 138 mmol/L???Potassium - 4.0 mmol/L???Chloride - 101 mmol/L???Bicarbonate Level - 27 mmol/L???Anion Gap - 10???Glucose Level - 76 mg/dL???BUN - 13 mg/dL???Creatinine-Blood - 0.7 mg/dL???Estimated GFR Creatinine - 126 ML/MIN/1.73 M2???Calcium - 9.1 mg/dL???Protein, Total - 6.8 Gm/dL???Alb umin - 4.4 Gm/dL???AG Ratio - 1.8???Alkaline Phosphatase - 93 units/L???AST (SGOT) - 341 units/L???ALT (SGPT) - 542 units/L???Bilirubin, Total - 0.9 mg/dL ELECTROLYTES (02/12/2022) ???Sodium - 136 mmol/L???Potassium - 4.4 mmol/L???Chloride - 100 mmol/L???Bicarbonate Level - 27 mmol/L???Anion Gap - 9 ETHANOL (02/08/2022) ???Ethanol, Serum or Plasma - NONE DETECTED High??Sensitivity??Troponin T (02/08/2022) ? ?High Sensitivity Troponin (HSTnT) - <6 ng/L Hold Blue Top Tube (02/08/2022) ???Hold Blue Top - SPECIMEN DISCARDED AFTER 4 HOURS. HOLD LAVENDER TUBE (02/12/2022) ???Hold Lavender Top - SPECIMEN DISCARDED AFTER 24 HOURS. LIPASE (02/08/2022) ???Lipase - 12 units/L Opiate Screen Urine (02/10/2022) ???Opiate Screen, Urine - POSITIVE Total Protein (02/12/2022) ???Protein, Total - 6.7 Gm/dL Troponin T, High Sensitivity (02/11/2022) ? ?High Sensitivity Troponin (HSTnT) - <6 ng/L Urinalysis w/hold for Urine Culture (02/10/2022) ???Appear/Color, Urine - LIGHT YELLOW???Specific [place], Urine - 1.011???pH, Urine - 6.0???Albumin, Urine - NEGATIVE???Glucose, Urine - NEGATIVE???Ketones, Urine - NEGATIVE???Bilirubin, Urine - NEGATIVE???Hemoglobin, Urine - NEGATIVE???Nitrite, Urine - NEGATIVE???Leukocyte, Urine - NEGATIVE???Urobi linogen - NORMAL? ?WBC's, Urine - <1 /HPF? ?RBC's, Urine - <1 /HPF? ?Hold Urine Culture - Testing available 48 hours from time of collection. Immunizations This Visit Not Given Vaccine Commentsinfluenza virus vaccine, inactivated Patient Refuses Allergies (NKA means No Known Allergies) ibuprofen Problems Active Problems??(5) Alcohol use?? Bipolar disease?? Bipolar disorder?? Opioid dependence (heroin and cocaine)?? Polysubstance abuse?? Education Materials Below is the list of Educational Leaflet Providered with your Discharge Instructions. Valuables and Belongings I fully understand and agree that [facility] accepts no responsibility for all my personal property including clothing, toilet articles, radios, jewelry, dentures, hearing aids, rings, money, or any other property that is in my possession or is brought to me after admission. I understand certain valuables may be placed in a hospital safe for a short period of time. I understand that the hospital is not liable for loss or damage due to accident, fire, or other natural occurrence while said property is in the safe. I accept full responsibility for any personal property that I keep with me, and will not hold the hospital responsible in case of loss or disappearance. I acknowledge that i have been encouraged to send valuables and belongings home. ?? No Valuables/Belongings: No valuables/belongings present Date for Pt to Sign Valuables/Belongings: 02/11/22 14:39:00 ?? Other Discharge Information ? Pulmonary Rehab Status?? Pulmonary Rehab Discharge Status?? Respiratory Rate: 18 br/min ? Common Emergency Awareness Tips IS IT A STROKE? Act FAST and Check for these signs: FACE Does the face look uneven? ARM Does one arm drift down? SPEECH Does their speech sound strange? TIME Call at any sign of stroke ?? Heart Attack Signs Chest discomfort: Most heart attacks involve discomfort in the center of the chest and lasts more than a few minutes, or goes away and comes back. It can feel like uncomfortable pressure, squeezing, fullness or pain. Discomfort in upper body: Symptoms can include pain or discomfort in one or both arms, back, neck, jaw or stomach. Shortness of breath: With or without discomfort. Other signs: Breaking out in a cold sweat, nausea, or lightheaded. Remember, MINUTES DO MATTER. If you experience any of these heart attack warning signs, call to get immediate medical attention! ?? Smoking can increase your chances of developing chronic health problems and can cause harmful effects to other family members in your house. If you smoke, you are strongly encouraged to quit. Please call [facility] at [phone] or [phone]) or log in to [email or web address] for referrals to smoking cessation programs. ?? The National Suicide Prevention Hotline is available 25/09 if you or someone you know needs to find a reason to keep living. By calling 0-127-965Paymentus (2236) you'll be connected to a skilled, trained counselor at a crisis center in your area. INPATIENT DISCHARGE INSTRUCTIONS SIGNATURE PAGE JANAE HANDY Location:[facility] Registration Date and Time:02/09/2022 11:34 EST Primary Care Physician: Amilcar OCAMPO, Sebastien Monroe, I JANAE HANDY, have received the above patient education materials/instructions and have verbalized understanding. If ambulance or transport services are being used I further acknowledge being given a choice of service. ?? If you need to contact me, please call me at this number: . Patient/Top Case Assembler Name: Patient/Top Case Assembler Signature: Relationship to Patient: Witness Name/Signature: Date: * BHSPowerscribe , CIS S: TRANSCRIBE Paul Cota MD: VERIFY Event Display: Result: Authored Date: Chest 2 Views Frontal and Lat Hx of Present Illness: Pt stated, CP, palpitations dizziness, IV endorses cocaine and heroine use approx 2 hours ago, recently treated for endocarditis last antibiotic dose 12 1; Reason: Other:; Chest Pain; Clinical Question(s): Other: COMPARISON: Multiple priors, including 01/19/2022. FINDINGS: LINES AND TUBES: None. LUNGS AND PLEURA: No focal consolidation or overt pulmonary edema. Stable scarring in the peripheral mid left chest. No pleural effusion. No pneumothorax. HEART, MEDIASTINUM AND NELSY: Heart is normal in size. Normal mediastinal and hilar contour. BONES AND SOFT TISSUES: No acute abnormality. IMPRESSION: No acute abnormality. WSN: [id number] Ordering Physician: Kelly Harrell Dictated By: Paul Cota MD Dictated Date/Time: 02/08/22 11:05 p Reviewed By: Paul Cota MD Signed By: Paul Cota MD Signed Date/Time: 02/08/22 11:05 pm Transcribed By: NIKI Transcribed Date/Time: 02/08/22 11:02 pm Patient Care team information Care Team Personnel Name: Rachel Bautista RN Position: [facility] RN Member Role: Primary Care Nurse Name: Cyndie Mancilla RN Position: S RN Member Role: Primary Care Nurse Name: Josie Zuñiga RN Position: [facility] RN Member Role: Primary Care Nurse Name: [...] S Outreach Member Role: PCP Address: Address: [address] [place] [address]- [place] Name: Oriana Trinidad RN Position: S RN Member Role: Primary Care Nurse Name: Collette Dominguez RN Position: [facility] RN Member Role: Primary Care Nurse Name: Carine Cruz RN Position: S RN Member Role: Primary Care Nurse Name: Norma Andres RN Position: S RN Member Role: Primary Care Nurse Name: Elaine Mtz RN Position: [facility] RN Member Role: Primary Care Nurse Name: Ginny Rodriguez RN Position: [facility] RN Member Role: Primary Care Nurse Name: Natasha Salazar RN Position: [facility] RN Member Role: Primary Care Nurse Name: Laurie Ma RN Position: [facility] RN Member Role: Primary Care Nurse Name: Trixie Rocha LPN Position: [facility] RN Member Role: Primary Care Nurse Name: Katie Cox RN Position: [facility] RN Member Role: Primary Care Nurse Name: Antony ALCARAZ Attending Position: [facility] ED Medicine MD Name: Adelaida Antunez RN Position: [facility] ED RN W/OE and Tasks Member Role: Patient Care Provider Name: Sean Perdomo Position: [facility] ED TA [facility] Member Role: Manager Clinic Care Team Related Persons Name: POP DELUCA Address: home [address] [place] [id number]
--- OUTSIDE RECORDS SUMMARY | 2022-05-27 11:54 | XMS_ITS | Continuity of Care Document ---
Author Name Unknown Organization [facility] ter Address [address] [place] [id number]- Care Team Providers Care Title Searcher Name Role Phone Amilcar OCAMPO, Sebastien Monroe Primary Care Physician [phone] [place] [facility] [place]13[place] - 01/18/[address] [address]- Encounter Diagnosis Bacterial endocarditis(Final) - 01/13/22 Discharge Disposition: A-D/C AMA Attending Physician: Yun Sim MD, Navdeep Mckeon Admitting Physician: Yonathan Lara MD Referring Physician: Not on Staff, Referring MD Allergies, Adverse Reactions, Alerts Substance Reaction Severity Status ibuprofen Active acetaminophen Resolved Immunizations Not Given Vaccine Date Status Refusal Reason influenza virus vaccine, inactivated 01/15/22 Not Given Patient Refuses pneumococcal 23-valent vaccine 1 11/17/18 Not Give n Patient Refuses 1Result Note: will follow up with pcp Medications Dilaudid Inj 4 mg, Injection, IV Push Slowly, Every 4 hours, PRN for Pain , Severe, Routine, 01/14/22 1:50:00 EST Start Date: 01/14/22 Stop Date: 01/18/22 Status: Discontinued Flexeril 10 mg oral tablet 10 mg, Tablet, By Mouth, 3 times a day, PRN for Other, muscle aches, Routine, 01/16/22 13:58:00 EST Start Date: 01/16/22 Stop Date: 01/18/22 Status: Discontinued methadone 10 mg oral tablet 70 mg, Tablet, By Mouth, 01/18/22 9:00:00 EST Start Date: 01/18/22 Stop Date: 01/18/22 Status: Completed Problem List Condition Confirmation Course Effective Dates Status H ealth Status Informant Alcohol use Confirmed Active Bipolar disease Confirmed Active Bipolar disorder Confirmed Active Opioid dependence (heroin and cocaine) Confirmed Active Polysubstance abuse Confirmed Active Results Orders for Microbiology Reports Name Date Blood Culture 01/13/22 Blood Culture #2 01/13/22 Microbiology Reports TEST:Blood Culture, Second Order STATUS:Auth (Verified) BODY SITE: SOURCE:Blood COLLECTED DATE/TIME:01/13/22 7:00 PM Blood Culture, Second Order SPECIMEN DESCRIPTION : BLOOD LEFT SPECIAL REQUESTS : NONE CULTURE : NO GROWTH 5 DAYS. REPORT STATUS : FINAL 01/18/2022 TEST:Blood Culture STATUS:Auth (Verified) BODY SITE: SOURCE:Blood COLLECTED DATE/TIME:01/13/22 6:55 PM Blood Culture SPECIMEN DESCRIPTION : BLOOD RIGHT SPECIAL REQUESTS : NONE CULTURE : NO GROWTH 5 DAYS. REPORT STATUS : FINAL 01/18/2022 Radiology Reports * Exam Date Time Procedure Performing Provider Status 01/13/22 8:23 PM Chest 2 Views Fronta l and Lat [place]i [place]; Auth (Verified) Notes: (Chest 2 Views Frontal and Lat) Reason For Exam: Chest Pain;Other: RESULT: Chest 2 Views Frontal and Lat Chest 2 Views Frontal and Lat Hx of Present Illness: recent d c'd to rehab for IV Abx for endocarditis septic emboli and left rehab, active IVDA presensts w chest pain, sob, fever; Reason: Other:; Chest Pain; Clinical Question(s): Other: COMPARISON: 12/22/2021 FINDINGS: LINES AND TUBES: None. LUNGS AND PLEURA: Slight increased density projecting over the lower thoracic spine on the lateral view, though I do not see evidence of abnormality on the frontal view. Appearance likely related to hypoinflation. Left lung opacity slightly less prominent than on previous exam. No pleural effusion. No pneumothorax. HEART, MEDIASTINUM AND NELSY: Heart is normal in size. Normal mediastinal and hilar contour. BONES AND SOFT TISSUES: No acute abnormality. IMPRESSION: No new abnormality. Likely resolving left lung opacity/pneumonia. WSN: [id number] Ordering Physician: Barbara Matt Dictated By: Rojas Reid MD Dictated Date/Time: 01/13/22 8:29 pm Reviewed By: Rojas Reid MD Signed By: Rojas Reid MD Signed Date/Time: 01/13/22 8:29 pm Transcribed By: NIKI Transcribed Date/Time: 01/13/22 8:27 pm Vital Signs Most recent to oldest [Reference Range]: 1 2 3 Height 167 cm (01/18/22 8:26 AM) 167 cm (01/16/22 4:31 PM) 167 cm (01/16/22 8:41 AM) Weight 59.3 kg (01/14/22 1:37 AM) Oxygen Saturation [94-100 %] 97 % (01/18/22 8:26 AM) 100 % (01/18/22 4:00 AM) 99 % (01/17/22 8:30 PM) Pulse Rate [55-90 bpm] 95 bpm *H* (01/18/22 8:26 AM) 98 bpm *H* (01/18/22 4:00 AM) 89 bpm (01/17/22 8:30 PM) Body Mass Index [18.5-24.99 kg/m2] 21.26 kg/m2 (01/14/22 1:37 AM) Blood Pressure [90-138/55-84 mm Hg] 108/69mm Hg (01/18/22 8:26 AM) 108/65mm Hg (01/18/22 4:00 AM) 105/64mm Hg (01/17/22 8:30 PM) Respiratory Rate [16-30 br/min] 18 br/min (01/18/22 10:04 AM) 18 br/min (01/18/22 10:04 AM) 18 br/min (01/18/22 9:34 AM) Temperature [96.8-100.4 DegF] 97.9 DegF (01/18/22 8:26 AM) 98 DegF (01/18/22 4:00 AM) 98.1 DegF (01/17/22 8:30 PM) Mode of Delivery (Oxygen) Room air (01/18/22 8:26 AM) Room air (01/18/22 4:00 AM) Room air (01/17/22 8:30 PM) Blood pressure sites Arm, left (01/18/22 8:26 AM) Arm, left (01/18/22 4:00 AM) Arm, left (01/17/22 8:30 PM) Temperature Route Oral (01/18/22 8:26 AM) Oral (01/18/22 4:00 AM) Oral (01/17/22 8:30 PM) Dry Weight 59.3 kg (01/14/22 1:37 AM) Weight Obtained Via Bed scale (01/14/22 1:37 AM) Dry Weight Obtained Via Bed scale (01/14/22 1:37 AM) Social History Social History Type Response Smoking Status Current every day bessy ruiz entered on: 02/22/16 Sex Male Admission evaluation note * Luis Garcia DO W: MODIFY, MODIFY, PERFORM, MODIFY, MODIFY, MODIFY, MODIFY Event Display: Admission Note Authored Date: Patient: ??JAMSHID COVINGTON ? Age:??31 Years?Sex:??Male?:??1990?? Chief Complaint/Reason for Consultation Presented for Antibiotics History of Present Illness Mr. Jamshid Covington is a 31-year-old gentleman with medical history notable for housing insecurity,bipolar disorder, untreated hepatitis C, IV drug use (both heroin and cocaine) with last use of IV heroin on the day prior to his presentation who presents to the emergency department with general malaise and generalized myalgias as well as shortness of breath. ?? Mr. Covington presented to the ED on 12/14 with a chief complaint of chest pain.?? At that time was found to have endocarditis with vegetation of the tricuspid valve.?? His blood cultures were positive for Enterococcus faecalis and he was transitioned to ampicillin and ceftriaxone on 12/15.?? CTA that admission did show septic emboli without pulmonary emboli.?? He was also followed by addiction medicine while inpatient for managing both his pain and methadone dosing.?? On 12/20 he eloped from the observation unit and returned home.?? Nursing called his father who stated that the patient was athome and had told him that he had been discharged from the hospital.?? At that time he still had his peripheral IV line in place.?? He was directed to return to the emergency department to be readmitted.?? He presented back to the emergency department in the evening of 12/20 having used IV heroin and cocaine just prior to presentation.?? He was again started back on ceftriaxone and ampicillin.?? T hat hospitalization was complicated by the patient leaving to smoke cigarettes.?? Ultimately he again left after having eloped for several hours.?? He was instructed to return back to the emergency department on 12/31, however he did not do so. ?? In the interceding time since his last admission,??Mr. Covington??endorses having been at a rehab facility for at least some time.??It seems that he left the facility involuntarily ??three days priorto his presentation at [facility]??on 01/13. While at the rehab facility, he endorses receiving significant amounts of IV Dilaudid for pain control.?? He ultimately returned to hospital today due to his ongoing symptoms and his awareness that he needs to continue with IV antibiotics in order to treathis infective endocarditis.??Mr. Covington actually presented to [facility] on the day preceding his presentation to [facility], but left after 6 hours as he does not care for [facility] and finds the food at [facility] more palatable, stating that [facility] food is like [facility] food. ?? With regard to his symptoms, they are primarily the same as previously??with??chest discomfort, though??he feels that they are more severe.??Additionally,??he endorses worsening back pain??and??ongoing? ?tingling??on the central to??toes of his feet bilaterally.?? The back pain is??located lateral to the spine on the left side with radiation to the??left flank/ribs.?? The pain is exacerbated??by coughing.?? He has also experienced nausea but denies??vomiting.?? Additionally, has had new onset??bilateral ankle swelling with??mild erythema.?? As far as his??most recent IV drug use is concerned,??apparently did use the night before his presentation.?? He continues to be on methadone, states that he received 70 mg at [facility]??when he presented to the ED there??most recently. ?? In the emergency department, vitals were stable.?? EKG with NSR at 75 bpm.?? QTc 473 ms.?? Labs notable for hemoglobin of 10.9, hyperglycemia with glucose 184, BUN 21/creatinine 0.6, AST 70, ALT 138, lactate 1.3, troponin less than 0.01, and patient was positive for COVID-19.?? CXR without new abnormality with left lung opacity slightly improved from prior exam.?? While in the ED, received 2 gceftriaxone and was ordered for ampicillin. Review of Systems A full review of systems was completed and is otherwise negative except as mentioned in history of present illness. Objective Vital Signs?? Temperature: 97.9 DegF (01/14/22 00:22:00) Temperature Route: Oral (01/14/22 00:22:00) Pulse Rate: 73 bpm (01/14/22 00:22:00) Respiratory Rate: 16 br/min (01/14/22 00:23:00) Systolic Blood Pressure: 103 mm Hg (01/14/22 00:22:00) Diastolic Blood Pressure: 58 mm Hg (01/14/22 00:22:00) Blood pressure sites: Arm, left (01/14/22 00:22:00) Mean Arterial Pressure: 77 mm Hg (01/13/22 22:53:00) Pulse Pressure: 45 mm Hg (01/14/22 00:22:00) Oxygen Saturation: 100 % (01/14/22 00:22:00) Mode of Delivery (Oxygen): Room air (01/14/22 00:22:00) Early Warning Score: 2 (01/14/22 01:20:16) ? Physical Exam General:??Alert, in no acute cardiopulmonary distress. Mental Status:??Intermittently flat affect. Responding appropriately to questions. HEENT:??Normocephalic. Respiratory:??Clear to auscultation. No wheezing, rales or rhonchi. Cardiovascular:??Regular rate and rhythm,??2/6??systolic murmur??best appreciated at the lower sternal border. Gastrointestinal:??Abdomen soft, nontender, nondistended, bowel tones present. No hepatosplenomegaly appreciated. Neurologic:??Cranial nerves II-XII grossly intact. Moves all extremities spontaneously. Extremities:??Bilateral trace??edema at the ankles with mild erythema.?? No concerning findings at the toes. --Did not appreciate splinter hemorrhages of toes. Musculoskeletal:??No gross deformities.?? Significant discomfort??of the back, primarily located??just inferior to the left scapula.?? --Although there is??discomfort at the spine as well, there is no point tenderness. Assessment/Plan Assessment:??Mr. Jamshid Covington is a 31-year-old gentleman with medical history notable for housing insecurity, bipolar disorder, untreated hepatitis C, IV drug use (both heroin and cocaine) with last use of IV heroin on the day prior to his presentation who presents to the emergency department with general malaise and generalized myalgias as well as shortness of breath??with the intention of??st arting??back with IV antibiotics.?Recently in rehab??facility, however??left the several days prior to his??return to [facility]??ED on 01/14. ??Has not been receiving antibiotics during that time.??Continues with aforementioned symptoms of??infective??endocarditis.?? Now admitted for further??evaluation and management including IV antibiotics. ?? Bacterial endocarditis (I33.0):?? IV drug user (F19.90): Multiple foci of pain: Patient with??known history of??IV drug use (cocaine and heroin)??and diagnosis of??infective endocarditis??on??12/15. Has been intermittently on??IV antibiotics (ceftriaxone and ampicillin)??since that time, however his treatment course has been complicated??by??premature??AMA discharges and elopements. Patient voices understanding??of ongoing need for IV therapy, which is in fact why he returned to the hospital. Although patient does have back pain,??there is no spinal point tenderness??with pain appearing to be more??muscular in nature,??and??have low suspicion for spinal epidural abscess. Suspect that??chest/flank pain??is related to septic emboli??as before??and that??Tylenol and lidocaine patches will??not??be sufficient to meet the patient's pain control needs. Overall,??vitals appear stable, though??do have concerns for worsening??of his??infective endocarditis with??new??trace bilateral lower extremity edema. Given that it is the weekend,??cannot pursue echocardiogram??right now, and??unclear how??beneficial a repeat TTE would be in this setting. Regardless, will need??treatment for his bacterial endocarditis.?? Blood cultures have been sent inthe ED??as he was previously??positive for??Enterococcus faecium (last positive??here??12/16). ?? Plan: ??? IV ampicillin??and ceftriaxone ?electronic device monitor ?Infectious disease consult ?Addiction medicine??consult -- Appreciate guidance on methadone ?Follow-up blood cultures in the emergency department ??? Pain control: -- Acetaminophen -- Lidocaine patch -- IV Dilaudid 4mg q4h for breakthrough pain ??? May need repeat echo, though will hold off for now ?? COVID-19 (U07.1):?? Noted incidentally on presentation 01/14. Does not endorse any current??COVID19 symptoms. Saturating well on room air. ?? Plan: ??? Isolation precautions ??? Monitor for symptom development ?? Tobacco use (Z72.0):?? Chronic tobacco use, states he does not smoke for the nicotine. Was not interested in nicotine patches, however??states that he may use gum if offered. ?? Plan: ?Nicotine gum ordered ??? Continue??counseling on smoking cessation ?? Bipolar disorder (F31.9):??Not currently on medications. Hepatitis C (B19.20): Never treated as per prior infectious disease documentation. ?? Quality Measures: VTE Prophylaxis:??Subcutaneous Heparin Code Status:??DNR, as per patient on admission Ongoing Medical Necessity:??Endocarditis Discharge Planning:??Pending further evaluation and treatment ? Histories Allergies Allergies ?(Active and Proposed Allergies Only) ibuprofen? (Severity: Unknown severity, Onset: Unknown) ? Past Medical History/Problem List Active Problems??(5) Alcohol use Bipolar disease Bipolar disorder Opioid dependence (heroin and cocaine) Polysubstance abuse ? 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 Family History No family history??of CAD. ? Employment/School Details:??Status: Unemployed. Home/Environment Details:??Other: His mother [...] heroin. Tobacco Details:??Current every day smoker ? Medications Home Medications Not currently on medications ?? EKG study * Event Display: ECG 12-Lead Authored Date: Please click on pdf link to open report * Event Display: ECG 12-Lead Authored Date: Ventricular Rate: 75 BPM Atrial Rate: 75 BPM P-R Interval: 142 ms QRS Duration: 108 ms Q-T Interval: 424 ms QTC Calculation(Bazett): 473 ms P [place]: 54 degrees R [place]: 68 degrees T [place]: 31 degrees Normal sinus rhythm Normal ECG When compared with ECG of 24-DEC-2021 12:34, Sinus rhythm has replaced Junctional rhythm Confirmed by RAMÓN HOPKINS ([id number]) on 01/14/2022 5:17:04 PM [place]: RAMÓN HOPKINS [facility] Progress note * Elaine Mtz RN: PERFORM, SIGN, VERIFY Event Display: Progress Note Hospital Authored Date: Patient: JAMSHID COVINGTON Age: 31 years Sex: Male : 1990 Associated Diagnoses: None Author: Elaine Mtz RN Findings Narrative/Incidental patient stated that he is going to leave AMA; refused to sign AMA paperwork. explained the risks ofleaving to patient. patient verbalized understanding and stated he is leaving anyways. patient stated he has somewhere to be. IV removed by YOSELYN. notified. . * Jossie Contreras: PERFORM, SIGN, VERIFY Event Display: Progress Note Hospital Authored Date: [id number] Patient: JAMSHID COVINGTON Age: 31 years Sex: Male : 1990 Associated Diagnoses: None Author: Jossie Contreras Histories Patient has received methadone 70mg BID for the last 2 days. Spoke with patient this morning around 0930. Interview conducted via phone due to COVID19 status. Patient still not feeling well. Patient reports that he feels his methadone dose is adequate. Not interested in any further adjustments or changes at this time. ROS: right sided chest pain, back pain, body aches, sweats. Assessment Mental Status Exam Manner/behavior: withdrawn. Speech: fluent, unimpaired. Mood: depressed. Affect: blunted. Thought process/associations: Linear. Reliability: good historian. Judgment: intact. Insight: intact. Memory: intact. Fund of knowledge: intact. Impression and Plan Opioid use disorder Can continue with methadone 70mg BID. Whenever patient is ready to leave, he should receive any remaining methadone doses for the day prior to departure. Patient will need a last dose letter on discharge. This is typically a free text note printed with date of discharge and methadone dose received here. 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 If anything changes and patient feels his dose needs to be adjusted, he will notify his medical team. Updated Dr Navdeep Malcolm via [employer] [facility]??Service will sign off at this time. Thank you for allowing us to participate in the careof this patient. Please contact me with any questions or concerns. * Shira Quiros RN: PERFORM, SIGN, VERIFY Event Display: Progress Note Hospital Authored Date: Patient: JAMSHID COVINGTON Age: 31 years Sex: Male : 1990 Associated Diagnoses: None Author: Shira Quiros RN Findings Problem Related to Alteration in Cardiac Function (new) : Alteration in Cardiac Function/new 01/16/2022 21:00 EST Alteration in Cardiac Status Related to Other: Endocarditis Goals & Outcomes, Cardiac Status Pt will resume/maintain adequate cardiac output, Pt will resume/maintain adequate hemodynamic status, Pt will resume/maintain adequate respiratory function, Pt will resume/maintain intact neuro function, Pt/caregiver will state understanding of diagnosis, Pt/caregiver [...] activity restrictions, Useadjunctive therapies per Standards of Practice Goals/Interventions, Cardiac Yes Cardiac, Problem Start 01/15/2022 0:38 Reviewed Plan with, Cardiac Status Patient Patient Progression, Cardiac Status Patient progressing according to plan . Alteration in Psychosocial : Alteration in Psychosocial Function/new 01/16/2022 21:00 EST Alteration in Psychosocial Related to Substance abuse Goals & Outcomes, Psychosocial Psychosocial support will be provided to Pt/S.O. as needed, Pt will identify stressors leading up to event, Pt will state importance of adhering to medication regime, Pt/caregiver will be offered appropriate resources & support, Pt/caregiver will express feelings/needs/fears /concerns, Pt/caregiver will maintain/obtain psychological stability Interventions, Psychosocial Assess psychosocial needs, Assess readiness to learn needed lifestyle changes, Assess/monitor level of consciousness, Collaborate with provider for psychiatric consult, Evaluate resources & support system available to pt, Offer support; discuss coping strategies, Provide a calm, supportive environment, Provide chances to express concerns/emotions/expectations, Provide info on community resources for education, support, Provide information about illness and recovery, Provide verbal limits if pt's behavior escalates Goals/Interventions, Psychosocial Yes Psychosocial, Problem Start 01/14/2022 13:32 Reviewed Plan with, Psychosocial Patient Patient Progression, Psychosocial Pt progressing according to plan . Nursing Data Vital Signs : VITAL SIGNS SECTION 01/17/2022 20:30 EST Temperature 98.1 DegF Temperature Route Oral Pulse Rate 89 bpm Respiratory Rate 18 br/min Systolic Blood Pressure 105 mm Hg Diastolic Blood Pressure 64 mm Hg Blood pressure sites Arm, left Oxygen Saturation 99 % Mode of Delivery (Oxygen) Room air . Narrative/Incidental A/O x 4. AVSS. LS clear. Occasional cough + . No resp distress noted. No c/o CP/SOB/ Nausea. Reg diet. Meds taken whole. IV antibiotics given. BS++. Last BM 01/17/22 Abdomen-soft , nontender. continent- void in the urinal- clear/yellow/urine. Ambulate indepedent. Rest in bed now. Skin- intact. no od venkat. Pain meds given as per order. Painscore 10 always. Safety measures maintained. Purposeful hourly rounding done. Patient slept well through the night. . Note * Yun Sim MD, aNvdeep Mckeon: PERFORM Event Display: Discharge/Transfer Note Hospital Authored Date: Patient: ??JAMSHID COVINGTON ? Age:??31 Years?Sex:??Male?:??1990?? Patient Information Discharge Location: [facility] Primary Care Physician: Sebastien Fitzgerald MD Admit Date/Time: 01/13/22 23:57 Discharge Disposition Discharge Disposition: ?? Discharge Diagnosis ?? Left against medical advise 01/18/2022 Bacterial endocarditis (I33.0):?? IV drug user (F1.90): Multiple foci of pain: Septic emboli in lungs COVID-19 (U07.1):?? Tobacco use (Z72.0):?? Bipolar disorder (F31.9): Hepatitis C (B19.20): Never treated Bacterial endocarditis (I33.0) Bipolar disorder (F31.9) COVID-19 (U07.1) Cocaine use disorder (F14.10) Hepatitis C (B19.20) IV drug user (F19.90) Mild opioid use disorder on maintenance therapy (F11.10) Tobacco use (Z72.0) ?? _ Discharge Medications No medications documented.? Allergies Allergies ?(Active and Proposed Allergies Only) ibuprofen? (Severity: Unknown severity, Onset: Unknown) ? Future Appointments Sunday 10:20 AM EST ?? With: Roland OCAMPO, Adolph Mckeon Where: [facility] Infectious Disease [address] [place] [address]- Objective Assessment and Plan ? Measurements?? Height: 167 cm (01/18/22) Weight: 59.3 kg (01/14/22) Dry Weight: 59.3 kg (01/14/22) Body Mass Index: 21.26 kg/m2 (01/14/22) ? Vital Signs?? Temperature: 97.9 DegF (01/18/22 08:26:00) Temperature Route: Oral (01/18/22 08:26:00) Pulse Rate:??95 bpm??High (01/18/22 08:26:00) Respiratory Rate: 18 br/min (01/18/22 10:04:00) Respiratory Rate: 18 br/min (01/18/22 10:04:00) Systolic Blood Pressure: 108 mm Hg (01/18/22 08:26:00) Diastolic Blood Pressure: 69 mm Hg (01/18/22 08:26:00) Blood pressure sites: Arm, left (01/18/22 08:26:00) Mean Arterial Pressure: 82 mm Hg (01/18/22 08:26:00) Pulse Pressure: 39 mm Hg (01/18/22 08:26:00) Oxygen Saturation: 97 % (01/18/22 08:26:00) Mode of Delivery (Oxygen): Room air (01/18/22 08:26:00) Early Warning Score: 0 (01/18/22 10:52:42) ? Intake/Output? 01/13 23:57 01/18 07:00 01/17 07:00 01/16 07:00 01/15 07:00 ?? 01/18 11:02 01/18 11:02 01/18 06:59 01/17 06:59 01/16 06:59 Intake ? 1920 ?240 ?0 ?0 ?600 Output ? 5275 ?125 ?775 ? 1900 ? 1400 Net Total ?-3355 ?115 ? -775 ?-1900 ? -800 ? . Physical Exam Pending Results Add On Lab Order ordered on 01/16/2022 Blood Culture ordered on 01/13/2022 Blood Culture #2 ordered on 01/13/2022 Home Health Face to Face ^HomeHealth[facility]F Results Discharge Labs BLOOD COUNT & DIFF WBC 5.6 k/mm3 ()?? 01/16/2022 00:29 RBC 3.92 m/mm3 (Low)?? 01/16/2022 00:29 Hgb 11.9 Gm/dL (Low)?? 01/16/2022 00:29 Hct 37.6 % (Low)?? 01/16/2022 00:29 MCV 95.9 femtoliters (High)?? 01/16/2022 00:29 MCH 30.4 pg ()?? 01/16/2022 00:29 MCHC 31.6 g/dL (Low)?? 01/16/2022 00:29 Platelet Count 159 k/mm3 ()?? 01/16/2022 00:29 RDW-SD 54.8 femtoliters (High)?? 01/16/2022 00:29 MPV 8.5 femtoliters (Low)?? 01/16/2022 00:29 Nucleated RBC (Automated) 0.0 #/100 WBC'S ()?? 01/16/2022 00:29 Abs. NRBC 0.0 k/mm3 ()?? 01/16/2022 00:29 Abs. Neut 3.0 k/mm3 ()?? 01/16/2022 00:29 Abs. Lymph 1.1 k/mm3 ()?? 01/16/2022 00:29 Abs. [place] 1.3 k/mm3 ()?? 01/16/2022 00:29 Abs. Eo 0.1 k/mm3 ()?? 01/16/2022 00:29 Abs. Baso 0.0 k/mm3 ()?? 01/16/2022 00:29 Neut % 53.4 % ()?? 01/16/2022 00:29 Lymph % 20.0 % ()?? 01/16/2022 00:29 [place] % 23.2 % (High)?? 01/16/2022 00:29 Eos % 2.0 % ()?? 01/16/2022 00:29 Baso % 0.5 % ()?? 01/16/2022 00:29 Imm Gran 0.9 % ()?? 01/16/2022 00:29 Abs. Imm Gran 0.1 k/mm3 ()?? 01/16/2022 00:29 ?? CARDIAC Troponin T Quant <0.01 ng/mL ()?? 01/16/2022 00:29 ? CHEM GENERAL Sodium 136 mmol/L ()?? 01/16/2022 00:29 Potassium 3.9 mmol/L ()?? 01/16/2022 00:29 Chloride 99 mmol/L ()?? 01/16/2022 00:29 Bicarbonate Level 26 mmol/L ()?? 01/16/2022 00:29 Anion Gap 11 ()?? 01/16/2022 00:29 Glucose Level 140 mg/dL (High)?? 01/14/2022 01:30 BUN 18 mg/dL ()?? 01/14/2022 01:30 Creatinine-Blood 0.7 mg/dL ()?? 01/16/2022 00:29 Estimated GFR Creatinine 126 ML/MIN/1.73 M2 ()?? 01/16/2022 00:29 Calcium 9.0 mg/dL ()?? 01/14/2022 01:30 Magnesium 1.6 mg/dL ()?? 01/16/2022 00:29 Protein, Total 7.3 Gm/dL ()?? 01/13/2022 18:58 Albumin 4.5 Gm/dL ()?? 01/13/2022 18:58 AG Ratio 1.6 ()?? 01/13/2022 18:58 Alkaline Phosphatase 75 units/L ()?? 01/13/2022 18:58 AST (SGOT) 59 units/L (High)?? 01/16/2022 00:29 ALT (SGPT) 93 units/L (High)?? 01/16/2022 00:29 Bilirubin, Total 0.6 mg/dL ()?? 01/13/2022 18:58 Lactate 1.3 mmol/L ()?? 01/13/2022 18:52 ? HEME OTHER Hold Blue Top SPECIMEN DISCARDED AFTER 4 HOURS. ()?? 01/13/2022 18:55 ? VIROLOGY COVID-19 POC Result POSITIVE (Abnormal)?? 01/13/2022 18:03 ? _ minutes spent on discharge * Haley Hernandez RN: PERFORM Event Display: Discharge/Transfer Note Hospital Authored Date: Nursing Discharge Note Entered On: 01/18/2022 10:48 EST Performed On: 01/18/2022 10:48 EST by Haley Hernandez RN Nursing Discharge Note 2 Discharge Time : 01/18/2022 10:30 EST Discharge Level of Care at Discharge : Left Against Medical Advice Patient Left Unit Via : Ambulatory Patient Accompanied Off Unit with : Other: self, AMA DC Instructions Provided & Signed by Pt : No Patient Understands D/C Instructions : Unable Patient Instructions Discharge Signed : No Instructions for Discharge Comments : Left AMA Did Pt have Specialty Bed or Wound Vac : No Haley Hernandez RN - 01/18/2022 10:48 EST * Cyndi , CIS S: TRANSCRIRojas Ramon MD S: VERIFY Event Display: Result: Authored Date: Chest 2 Views Frontal and Lat Hx of Present Illness: recent d c'd to rehab for IV Abx for endocarditis septic emboli and left rehab, active IVDA presensts w chest pain, sob, fever; Reason: Other:; Chest Pain; Clinical Question(s): Other: COMPARISON: 12/22/2021 FINDINGS: LINES AND TUBES: None. LUNGS AND PLEURA: Slight increased density projecting over the lower thoracic spine on the lateral view, though I do not see evidence of abnormality on the frontal view. Appearance likely related to hypoinflation. Left lung opacity slightly less prominent than on previous exam. No pleural effusion. No pneumothorax. HEART, MEDIASTINUM AND NELSY: Heart is normal in size. Normal mediastinal and hilar contour. BONES AND SOFT TISSUES: No acute abnormality. IMPRESSION: No new abnormality. Likely resolving left lung opacity/pneumonia. WSN: [id number] Ordering Physician: Barbara Matt Dictated By: Rojas Reid MD Dictated Date/Time: 01/13/22 8:29 pm Reviewed By: Rojas Reid MD Signed By: Rojas Reid MD Signed Date/Time: 01/13/22 8:29 pm Transcribed By: NIKI Transcribed Date/Time: 01/13/22 8:27 pm Patient Care team information Care Team [...] Care Nurse Name: Sebastien Fitzgerald MD Position: [facility] Outreach Member Role: PCP Address: Address: [address] [place] [address] Name: Oriana Trinidad RN Position: S RN Member Role: Primary Care Nurse Name: Carine Cruz RN Position: S RN Member Role: Primary Care Nurse Name: Norma Andres RN Position: S RN Member Role: Primary Care Nurse Name: Elaine Mtz RN Position: S RN Member Role: Primary Care Nurse Name: Ginny Rodriguez RN Position: S RN Member Role: Primary Care Nurse Name: Natasha Salazar RN Position: S RN Member Role: Primary Care Nurse Name: Laurie Ma RN Position: S RN Member Role: Primary Care Nurse Name: Trixie Rocha LPN Position: S RN Member Role: Primary Care Nurse Name: *IRA, ED Attending Position: [facility] ED Attendings Patient Name: *IRA, Inpt Attending Position: [facility] ED Medicine MD Name: Chloé Cao Position: [facility] ED RN W/OE and Tasks Member Role: Patient Care Provider Care Team Related Persons Name: POP DELUCA Address: [address] [address]
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
--- OUTSIDE RECORDS SUMMARY | 2022-05-27 11:54 | XMS_ITS | Continuity of Care Document ---
Author Name Unknown Organization [facility] Address [address] [place] [address]- Care Team Providers Care Knife Finisher Name Role Phone Amilcar OCAMPO, Sebastien Monroe Primary Care Physician Encounter [facility] [place] Date(s): 01/30/22 - 03/30/22 [facility] [address] [place] [id number] Attending Physician: Adolph Watkins MD Admitting Physician: Adolph Watkins MD Referring Physician: Sebastien Fitzgerald MD Allergies, Adverse Reactions, Alerts Substance Reaction [...] Condition Confirmation Course Effective Dates Status H ealt Status Informant Alcohol use Confirmed Active Bipolar [...] Care Nurse Name: Mira Bullard RN Position: [facility] RN Member Role: Primary Care Nurse Name: Raffi Jones RN Position: S RN Member Role: Primary Care Nurse Name: Krystyna Clark Position: S RN Member Role: Primary Care Nurse Name: Leland Zuniga RN Position: S RN Member Role: Primary Care Nurse Name: Rogelio James RN Position: S RN Member Role: Primary Care Nurse Name: Kat Souza RN Position: [facility] RN Member Role: Primary Care Nurse Name: Sebastien Fitzgerald MD Position: [facility] Outreach Member Role: PCP Address: Address: [address] [place] [id number] Name: Oriana Trinidad RN Position: [facility] RN Member Role: Primary Care Nurse Name: Collette Dominguez RN Position: [facility] RN Member Role: Primary Care Nurse Name: Carine Cruz RN Position: [facility] RN Member Role: Primary Care Nurse Name: Norma Andres RN Position: [facility] RN Member Role: Primary Care Nurse Name: Elaine Mtz RN Position: [facility] RN Member Role: Primary Care Nurse Name: Ginny Rodriguez RN Position: [facility] RN Member Role: Primary Care Nurse Name: Natasha Salazar RN Position: [facility] RN Member Role: Primary Care Nurse Name: Laurie Ma RN Position: [facility] RN Member Role: Primary Care Nurse Name: Trixie Rocha LPN Position: [facility] RN Member Role: Primary Care Nurse Name: Katie Cox RN Position: [facility] RN Member Role: Primary Care Nurse Care Team Related Persons Name: POP DELUCA Address: home [address] [place] [id number]
--- OUTSIDE RECORDS SUMMARY | 2022-05-27 11:54 | XMS_ITS | Continuity of Care Document ---
Author Name Unknown Organization [facility] Address [address] [place] [address]- Care Team Providers Care Animal Sticker Name Role Phone Amilcar OCAMPO, Sebastien Monroe Primary Care Physician Encounter [facility] [place] R [id number] Date(s): 12/20/21 - 03/02/22 [facility] [address] [place] [id number] Attending Physician: Adolph Watkins MD Admitting Physician: [...] Care Nurse Name: Kat Souza RN Position: [facility] RN Member Role: Primary Care Nurse Name: Sebastien Fitzgerald MD Position: [facility] Outreach Member Role: PCP Address: Address: [address] [place] [id number] Name: Oriana Trinidad RN Position: [facility] RN Member Role: Primary Care Nurse Name: Collette Dominguez RN Position: [facility] RN Member Role: Primary Care Nurse Name: Carine Cruz RN Position: [facility] RN Member Role: Primary Care Nurse Name: Norma Andres RN Position: [facility] RN Member Role: Primary Care Nurse Name: Elaine Mtz RN Position: [facility] RN Member Role: Primary Care Nurse Name: Ginny Rodriguez RN Position: [facility] RN Member Role: Primary Care Nurse Name: Natasha Salazar RN Position: [facility] RN Member Role: Primary Care Nurse Name: Laurie Ma RN Position: [facility] RN Member Role: Primary Care Nurse Name: Trixie Rocha LPN Position: [facility] RN Member Role: Primary Care Nurse Name: Katie Cox RN Position: [facility] RN Member Role: Primary Care Nurse Care Team Related Persons Name: POP DELUCA Address: home [address] [place] [id number]
--- OUTSIDE RECORDS SUMMARY | 2022-05-27 11:54 | XMS_ITS | Continuity of Care Document ---
Author Name Unknown Organization [facility] ter Address [address] [place] [address]- Care Team Providers Care Pusher Runner Name Role Phone Sebastien Fitzgerald MD Primary Care Physician [phone] Encounter [facility] [place] Date(s): 10/08/20 - 10/08/[address] [address]- Discharge Disposition: A-D/C Home Attending Physician: Alicja Rodgers MD Admitting Physician: Alicja Rodgers MD Referring Physician: Not on Staff, Referring MD Allergies, Adverse Reactions, Alerts Substance Reaction Severity Status ibuprofen Active naproxen Active acetaminophen Active Immunizations Not Given Vaccine Date Status Refusal Reason pneumococcal 23-valent vaccine 1 11/17/18 Not Give n Patient Refuses 1Result Note: will follow up with pcp Medications amoxicillin 500 mg oral capsule 2 capsule = 1,000 mg, By Mouth, 3 times a day, for 7 days, # 42 capsule, 0 Refills, Acute 10/15/20 14:00:00 EDT, 10/08/20 14:00:00 EDT, Capsule, [id number], Partial fill upon patient request if the prescription is for a schedule II opioid drug... Start Date: 10/08/20 Stop Date: 10/15/20 Status: Ordered Azithromycin 5 Day Dose Pack 250 mg [...] Exam Date Time Procedure Performing Provider Status 10/08/20 11:40 AM Chest 2 Views Frontal and Lat [place]; Auth (Verified) Notes: (Chest 2 Views Frontal and Lat) Reason For Exam: SOB;Cough RESULT: Chest 2 Views Frontal and Lat Chest 2 Views Frontal and Lat Hx of Present Illness: Cough, congestion; Reason: Cough; SOB; Clinical Question(s): Pneumonia; Special Instructions: This is a protocol film and radiologist should call any findings to the Charge Nurse or appropriate provider COMPARISON: 11/17/2018 FINDINGS: LINES AND TUBES: None. HEART, MEDIASTINUM AND NELSY: Heart is normal in size. Normal mediastinal and hilar contour. LUNGS AND PLEURA: Focal increased density measuring up to 20 mm is noted at the left lateral base. No pleural effusion. No pneumothorax. BONES AND SOFT TISSUES: No acute abnormality. IMPRESSION: Left basilar airspace opacity which is suspicious for pneumonia. Clinical correlation is needed, and follow-up radiographs are advised. A [place] message has been communicated via the [employer] system on 10/08/2020 12:01 PM, Message ID [id number]. WSN: [id number] Ordering Physician: Jamshid Perdomo MD Dictated By: Jan Crisostomo MD Dictated Date/Time: 10/08/20 12:01 p Reviewed By: Jan Crisostomo MD Signed By: Jan Crisostomo MD Signed Date/Time: 10/08/20 12:01 pm Transcribed By: NIKI Transcribed Date/Time: 10/08/20 11:59 am Vital Signs Most recent to oldest [Reference Range]: 1 2 3 Oxygen Saturation [94-100 %] 100 % (10/08/20 1:38 PM) 96 % (10/08/20 10:57 AM) 97 % (10/08/20 10:48 AM) Pulse Rate [55-90 bpm] 69 bpm (10/08/20 1:38 PM) 91 bpm *H* (10/08/20 10:57 AM) 66 bpm (10/08/20 10:48 AM) Blood Pressure [90-138/55-84 mm Hg] 115/76mm Hg (10/08/20 1:38 PM) 110/70mm Hg (10/08/20 10:57 AM) Respiratory Rate [16-30 br/min] 20 br/min (10/08/20 1:38 PM) 20 br/min (10/08/20 10:57 AM) Temperature [96.8-100.4 DegF] 98.4 DegF (10/08/20 1:38 PM) 98.3 DegF (10/08/20 10:57 AM) Mode of Delivery (Oxygen) Room air (10/08/20 1:38 PM) Room air (10/08/20 10:57 AM) Room air (10/08/20 10:48 AM) Blood pressure sites Arm, left (10/08/20 1:38 PM) Arm, right (10/08/20 10:57 AM) Temperature Route Oral (10/08/20 1:38 PM) Oral (10/08/20 10:57 AM) Social History Social History Type Response Smoking Status Current every day bessy ruiz entered on: 02/22/16 Sex Male
--- OUTSIDE RECORDS SUMMARY | 2022-05-27 11:54 | XMS_ITS | Continuity of Care Document ---
Author Name Unknown Organization [facility] ter Address [address] [place] [address]- Care Team Providers Care Childcare Teacher Name Role Phone Not on Staff, PCP Primary Care Physician Unavail able Encounter [facility] Date(s): 02/15/19 - 02/15/[address] [address]- [facility] Encounter Diagnosis Paresthesia(Final) - 02/15/19 Discharge Disposition: A-D/C Home Attending Physician: Dennis Soto MD Admitting Physician: Dennis Soto MD Referring Physician: Not on Staff, Referring [...] Exam Date Time Procedure Performing Provider Status 02/15/19 4:49 AM Ankle Min 3 Views Right Bettie Guillentye er; Auth (Verified) Notes: (Ankle Min 3 Views Right) Reason For Exam: with Pain;Trauma RESULT: Ankle Min 3 Views Right PROCEDURE: Ankle Min 3 Views Right CLINICAL INDICATION: 28 years old Male with Refer to EMR; Reason: Trauma; with Pain; Clinical Question(s): Fracture; Special Instructions: This is a protocol film and radiologist should call any findings to the Charge Nurse; Hx of Present Illness: 2 days of right ankle pain, denies injury but had surgery in October; Other Objective Findings: alert, color good, right ankle pain, no swelling noted, pt is ambulatory and weight bearing, pain le. TECHNIQUE: Three views of the RIGHT ankle are obtained. COMPARISONS: RIGHT ankle 04/04/2018 through 10/31/2018. FINDINGS: Bones and joints: No acute fracture or dislocation. Metallic sideplate along the lateral aspect of the distal fibula fixated by seven threaded screws and an additional screw remnant noted in the distal fibular metaphysis extending from anterior to posterior again seen. The fracture line is no longer visible. New well-corticated lucency in the calcaneus centrally measuring 1.1 cm, likely a donor site for bone graft augmentation. Joint spaces are normal. Soft Tissues: Regional soft tissues are unremarkable. No evidence of radiopaque foreign body. IMPRESSION: 1. No evidence of acute bony injuries. 2. Healed, internally fixated distal fibular fracture. Thank you for allowing me to participate in the care of this patient. WSN: [id number] Dictated By: Taiwo Miranda MD Dictated Date/Time: 02/15/19 9:09 am Reviewed By: Taiwo Miranda MD Signed By: Taiwo Miranda MD Signed Date/Time: 02/15/19 9:09 am Transcribed By: NIKI Transcribed Date/Time: 02/15/19 9:04 am Vital Signs Most recent to oldest [Reference Range]: 1 2 3 Oxygen Saturation [94-100 %] 98 % (02/15/19 9:29 AM) 100 % (02/15/19 6:56 AM) 97 % (02/15/19 4:51 AM) Pulse Rate [55-90 bpm] 83 bpm (02/15/19 9:29 AM) 89 bpm (02/15/19 6:56 AM) 97 bpm *H* (02/15/19 4:51 AM) Blood Pressure [90-138/55-84 mm Hg] 127/78mm Hg (02/15/19 9:29 AM) 116/80mm Hg (02/15/19 6:56 AM) 133/99mm Hg (02/15/19 4:51 AM) Respiratory Rate [16-30 br/min] 16 br/min (02/15/19 9:29 AM) 16 br/min (02/15/19 6:56 AM) 16 br/min (02/15/19 4:51 AM) Temperature [96.8-100.4 DegF] 98.2 DegF (02/15/19 9:29 AM) 98.4 DegF (02/15/19 6:56 AM) 98.4 DegF (02/15/19 2:27 AM) Mode of Delivery (Oxygen) Room air (02/15/19 9:29 AM) Room air (02/15/19 4:51 AM) Room air (02/15/19 2:27 AM) Blood pressure sites Arm, left (02/15/19 9:29 AM) Arm, left (02/15/19 6:56 AM) Arm, left (02/15/19 4:51 AM) Temperature Route Oral (02/15/19 9:29 AM) Oral (02/15/19 6:56 AM) Oral (02/15/19 2:27 AM) Social History Social History Type Response Smoking Status Current every day bessy ruiz entered on: 02/22/16 Sex Male
--- OUTSIDE RECORDS SUMMARY | 2022-05-27 11:54 | XMS_ITS | Continuity of Care Document ---
Author Name Unknown Organization [facility] ter Address [address] [place] [address]- Care Team Providers Care Head Of Advertising Name Role Phone Sebastien Fitzgerald MD Primary Care Physician Encounter [facility] [place] Date(s): 09/30/21 - 09/30/[address] [address]- Discharge Disposition: A-D/C Walkout Attending Physician: Not [...] Most recent to oldest [Reference Range]: 1 Oxygen Saturation [94-100 %] 97 % (09/30/21 12:43 AM) Pulse Rate [55-90 bpm] 83 bpm (09/30/21 12:43 AM) Blood Pressure [90-138/55-84 mm Hg] 118/ 75mm Hg (09/30/21 12:43 AM) Respiratory Rate [16-30 br/min] 18 br/mi n (09/30/21 12:43 AM) Temperature [96.8-100.4 DegF] 98.3 DegF (09/30/21 12:43 AM) Mode of Delivery (Oxygen) Room air (09/30/21 12:43 AM) Blood pressure sites Arm, right (09/30/21 12:43 AM) Temperature Route Oral (7/29/22 12:43 AM) Social History Social History Type Response Smoking Status Current every day bessy ruiz entered on: 02/22/16 Sex Male
[2022-05-27 12:02] LABS: Amphetamine Screen Urine Not Detected (Not Detect); Barbiturates, Urine Not Detected (Not Detect); Benzodiazepines Screen Urine Not Detected (Not Detect); Cannabinoid Screen Urine Not Detected (Not Detect); Cocaine Screen Urine Not Detected (Not Detect); Fentanyl, urine POSITIVE (Not Detect); Opiate Screen Urine Not Detected (Not Detect); Phencyclidine Screen Urine Not Detected (Not Detect)
[2022-05-27 12:18] LABS: MANUAL DIFF FLAG NO
[2022-05-27 12:20] LABS: Basophils Percent Auto 0.6 % (0-2); Eosinophils Absolute Auto 0.3 X10*3/uL (0.0-0.4); Eosinophils Percent Auto 5.3 % (0-4); Hematocrit 41.1 % (42.0-52.0); Hemoglobin 13.7 g/dl (14.0-18.0); Imm Gran Abs Auto 0.01 X10*3/uL (0.00-0.03); Imm Gran Pct Auto 0.2 % (0.0-0.4); Lymphocytes Absolute Auto 1.7 X10*3/uL (1.2-4.9); Lymphocytes Percent Auto 35.4 % (20-40); Mean Corpuscular HGB Conc 33.3 g/dl (31.0-36.0); Mean Corpuscular Hemoglobin 29.9 pg (27.0-33.0); Mean Corpuscular Volume 89.7 fL (80.0-98.0); Mean Platelet Volume 9.1 fL (9.4-12.4); Monocytes Absolute Auto 0.7 X10*3/uL (0.1-1.2); Monocytes Percent Auto 13.8 % (2-11); Neutrophils Absolute Auto 2.2 x10*3/uL (2.0-8.3); Neutrophils Percent Auto 44.7 % (45-73); Platelet Count 129 X10*3/uL (160-400); Red Blood Count 4.58 X10*6/uL (4.60-5.80); Red Cell Distribution Width 13.8 % (11.0-16.0); White Blood Count 4.9 X10*3/uL (4.8-10.8)
[2022-05-27 12:31] LABS: COVID-19 Test Negative (Negative); IDNOW Serial# BCCEAD1C
[2022-05-27 12:45] LABS: Alanine Aminotransferase 282 U/L (0-40); Albumin Level 3.8 g/dL (3.5-5.0); Alkaline Phosphatase 77 U/L (39-117); Anion Gap 13 (12-20); Aspartate Amino Transferase 159 U/L (5-37); Bilirubin Direct 0.3 mg/dL (0.0-0.5); Bilirubin Total 0.8 mg/dL (0.0-1.0); Blood Urea Nitrogen 15 mg/dL (9-16); Calcium 8.9 mg/dL (8.4-10.2); Carbon Dioxide 25 mmol/L (22-29); Chloride 106 mmol/L (96-108); Creatinine Clr Calc Pharmacy 113.1; Estimated Glomerular Filt Rate > 60; Ethanol < 10 mg/dL; Glucose Random 127 mg/dL (60-115); Potassium 4.1 mmol/L (3.3-5.1); Sodium 140 mmol/L (135-145); Total Protein 6.8 g/dL (6.5-8.0)
--- NOTE | 2022-05-27 17:29 | PC.NURSE ---
Pt sleeping at this time, respirations even and unlabored, no apparent distress. CARE team spoke with pt earlier, pending inpatient bedsearch, continue plan of care
[2022-05-27 22:39] VITALS: BP 101/59; PULSE 53; RESP 16; TEMP 36.4; O2SAT 98
[2022-05-28 01:44] VITALS: BP 96/60; PULSE 56; RESP 15; TEMP 36.7; O2SAT 95
--- NOTE | 2022-05-28 06:00 | PC.NURSE ---
Patient slept through the night, no distress observed/reported, behavior non concerning, med rec completed/patient is currently not on any medication, disposition per care team is voluntary inpatient bed search, VSS, will continue to monitor.
--- NOTE | 2022-05-28 07:34 | HE.PHANOTE ---
Re: methadone verification Pt last dose of 140 mg at [facility] on 05/27/22.
--- NOTE | 2022-05-28 10:51 | PC.NURSE ---
pt cleared for discharge. narcan given to take home and pt education how to administer. pt given bus pass and snack per his request. he was escorted to [facility] to flower picker his clothes.
[2022-05-28] MEDS: methADONE HCl 20 MG/2 ML ORAL.CONC 140 MG PO (13:18)
--- NOTE | 2022-05-28 15:28 | PC.NURSE ---
report received from morning RN. Pt currently awake and walking around pod, pleasent and cooperative, no concerning behavior. no apparent distress. continue plan of care for inpatient bedsearch
[2022-05-28 15:59] VITALS: BP 104/63; PULSE 56; RESP 16; TEMP 36.2; O2SAT 98
[2022-05-28 20:15] VITALS: BP 106/56; PULSE 71; RESP 18; TEMP 36.8; O2SAT 97
[2022-05-29 01:55] VITALS: BP 110/60; PULSE 68; RESP 16; TEMP 36.7; O2SAT 97
--- NOTE | 2022-05-29 02:27 | PC.NURSE ---
Assumed care of pt. at 1900. Pt. resting in room at this time. Pt. awoke briefly in the night and requested a pbj sandwich, which was provided to the pt. No other concerns. Pt. is pending inpt. bed. Will continue to monitor.
--- NOTE | 2022-05-29 07:29 | PC.NURSE ---
patient appears to remain asleep at present respirations are even and unlabored patient appears in no distress
[2022-05-29 09:15] VITALS: BP 104/72; PULSE 69; RESP 16; TEMP 36.6; O2SAT 98
[2022-05-29] MEDS: methADONE HCl 20 MG/2 ML ORAL.CONC 140 MG PO (09:17)
--- NOTE | 2022-05-29 09:48 | MHC.CARE ---
respite referral completed to [facility]
--- NOTE | 2022-05-29 10:41 | MHC.CARE ---
Care Team engineer intern called [facility] Cm ([phone]) to confirm receipt of respite referral. Staff confirmed receipt and will review application.
--- NOTE | 2022-05-29 12:09 | MHC.CARE ---
CARE Team spoke with Kathleen Molina from [facility]- she reported Pt is able to return to [facility].
== END 2022-05-29 12:33 | disposition other institution (70) ==
PROVIDERS: Nurse Practitioner Family; Emergency Provider Emergency Medicine
DX: R45.851 Suicidal ideations (principal); Z20.822 Contact with and (suspected) exposure to COVID-19; F32.A Depression, unspecified; F43.10 Post-traumatic stress disorder, unspecified; B19.20 Unspecified viral hepatitis C without hepatic coma; F11.20 Opioid dependence, uncomplicated
CPT/HCPCS: 80048; 80076; 80307; 82077; 85025; 87635; 99285; S9485

== ENCOUNTER 2022-09-01 15:01 | Inpatient (IN) | payer OTHER, SELFPAY ==
--- OUTSIDE RECORDS SUMMARY | 2022-09-01 15:05 | XMS_ITS | Continuity of Care Document ---
Author Name Unknown Organization [facility] Gastroenter ology Address [address] [place] [id number]- Care Team Providers Care News Internship Name Role Phone Sebastien Fitzgerald MD Primary Care Physician Encounter [facility] Date(s): 02/14/22 - 06/14/22 [facility] Gastroenterology [address] [place] [address]- Attending Physician: Charbel Hanks MD Admitting Physician: Charbel Hanks MD Referring Physician: Sebastien Fitzgerald MD Allergies, [...] Team Personnel Name: Rachel Bautista RN Position: [facility] RN Member Role: Primary Care Nurse Name: Cyndie Mancilla RN Position: S RN Member Role: Primary Care Nurse Name: Josie Zuñiga RN Position: [facility] RN Member Role: Primary Care Nurse Name: Mira Bullard RN Position: S RN Member Role: Primary Care Nurse Name: Raffi Jones RN Position: S RN Member Role: Primary Care Nurse Name: Krystyna Clark Position: S RN Member Role: Primary Care Nurse Name: Leland Zuniga RN Position: S RN Member Role: Primary Care Nurse Name: Rogelio James RN Position: [facility] RN Member Role: Primary Care Nurse Name: Kat Souza RN Position: S RN Member Role: Primary Care Nurse Name: Sebastien Fitzgerald MD Position: [facility] Outreach Member Role: PCP Address: Address: [address] [place] [id number] Name: Oriana Trinidad RN Position: [facility] RN Member Role: Primary Care Nurse Name: Collette Dominguez RN Position: [facility] RN Member Role: Primary Care Nurse Name: Carine Cruz RN Position: [facility] RN Member Role: Primary Care Nurse Name: Norma Andres RN Position: [facility] RN Member Role: Primary Care Nurse Name: Elaine Mtz RN Position: [facility] RN Member Role: Primary Care Nurse Name: Ginny Rodriguez RN Position: [facility] RN Member Role: Primary Care Nurse Name: Natasha Salazar RN Position: [facility] RN Member Role: Primary Care Nurse Name: Laurie Ma RN Position: [facility] RN Member Role: Primary Care Nurse Name: Trixie Rocha LPN Position: [facility] RN Member Role: Primary Care Nurse Name: Katie Cox RN Position: [facility] RN Member Role: Primary Care Nurse Care Team Related Persons Name: POP DELUCA Address: home [address] [place] [id number]
--- OUTSIDE RECORDS SUMMARY | 2022-09-01 15:05 | XMS_ITS | Continuity of Care Document ---
Author Name Unknown Organization [facility] Gastroenter ology Address [address] [place] [id number]- Care Team Providers Care [facility] Director Name Role Phone Sebastien Fitzgerald MD Primary Care Physician Encounter [facility] Date(s): 05/15/22 - 06/14/22 [facility] Gastroenterology [address] [place] [address]- Attending Physician: Madie Olvera Admitting Physician: Madie Olvera Referring Physician: AdmMadie gutierrez Allergies, Adverse Reactions, Alerts Substance Reaction Severity [...] Primary Care Nurse Name: Krystyna Clark Position: [facility] RN Member Role: Primary Care Nurse Name: Leland Zuniga RN Position: S RN Member Role: Primary Care Nurse Name: Rogelio James RN Position: [facility] RN Member Role: Primary Care Nurse Name: Kat Souza RN Position: S RN Member Role: Primary Care Nurse Name: Sebastien Fitzgerald MD Position: [facility] Outreach Member Role: PCP Address: Address: [address] [place] [id number] Name: Oriana Trinidad RN Position: [facility] RN Member Role: Primary Care Nurse Name: Collette Dominguez RN Position: [facility] RN Member Role: Primary Care Nurse Name: Carine Cruz RN Position: [facility] RN Member Role: Primary Care Nurse Name: Norma Andres RN Position: [facility] RN Member Role: Primary Care Nurse Name: Elaine Mtz RN Position: [facility] RN Member Role: Primary Care Nurse Name: Ginny Rodriguez RN Position: [facility] RN Member Role: Primary Care Nurse Name: Natasha Salazar RN Position: [facility] RN Member Role: Primary Care Nurse Name: Laurie Ma RN Position: [facility] RN Member Role: Primary Care Nurse Name: Trixie Rocha LPN Position: [facility] RN Member Role: Primary Care Nurse Name: Katie Cox RN Position: [facility] RN Member Role: Primary Care Nurse Care Team Related Persons Name: POP DELUCA Address: home [address] [place] [id number]
[2022-09-01 15:33] VITALS: BP 101/59; PULSE 67; RESP 18; TEMP 36.4; O2SAT 100
[2022-09-01] MEDS: LORazepam 1 MG TABLET PO (15:53)
[2022-09-01] MEDS: cloNIDine HCL 0.1 MG TABLET PO (15:53)
[2022-09-01] MEDS: hydrOXYzine HCL 25 MG TABLET PO (16:27)
[2022-09-01] MEDS: Acetaminophen 325 MG TABLET 650 MG PO (16:28)
[2022-09-01 16:32] VITALS: BMI 20.9
--- NOTE | 2022-09-01 17:26 | PC.ADMIT ---
Patient is a 31 yo male admitted to the unit as a CV, patient from [facility] where he had presented initially to the ED for chest pain and concern that he had a recurrence of endocarditis. Patient was cleared by the ED and at the time of discharge the patient stated he did not feel safe and was concerned he would kill himself if he was discharged. Patient stated that he had thoughts of killing himself by overdosing and reported that he was frustrated and hopeless due to not being able to fine detox placement. On admission to the unit the patient was pacing in his room and reported feeling very anxious, patient was unable to redirect without medication which was provided before the intake could be completed. Patient exhibited future focused and linear thought processes. Denies AVH and HI, pt continues to endorse SI but was able to state he currently felt safe on the unit. During the safety tool and treatment planning the patient became overwhelmed and reported that he should just leave and he knew this was a bad idea. Patient was able to redirect but had escalated to the extent of indicating that he may attempt to escape and that he was ready to go to custodial indicating intent of assaulting staff. Patient was given quiet area and space and was able to regain composure and finish the intake.
--- NOTE | 2022-09-01 17:30 | HE.PHANOTE ---
Re: methadone Used [facility] to confirm last dose was 09/01 100 mg @0630
--- NOTE | 2022-09-01 19:07 | P.CONHOSP_ITS ---
History of Present Illness Data of Consult Service Date: 09/01/22 Requesting physician: Susy Reese Primary Care Provider: Sebastien Fitzgerald MD [facility] Reason for consult: medical H&P, chest pain 31 year old male with history IVDA, polysubstance use on methadone, hx endocarditis with septic emboli, hx multiple intracranial inafarctions admitted to psychiatry with consult placed to medicine for medical H&P and evaluation of chest pain. The patient presented to [facility] ED with complaints of left sided pleuritic chest pain. EKG showed NSR, rate [address]/t wave abnormality. High sensitivity trops negative. No leukocytosis, mild normocytic anemia with H/H 13.4/40.6%. Renal function normal, electrolyte levels normal. AST 163, ALT 225, bilirubin within normal limits. Urine tox screen positive for opiates, methadone, fentanyl, cocaine, and THC. Ethyl alcohol negative. COVID-19 negative. CTA chest ordered and was negative for any PE or other acute intrathoracic pathology or pneumonia. Initial blood cultures faxed over after admission earlier today with 1/2 cultures growing Gram-positive cocci in clusters on preliminary result. Patient is afebrile. Per nursing staff, he was reporting reproducible chest pain on the unit today and was given Tylenol. He was aggitated earlier and was given 1 mg lorazepam, 0.1mg clonidine, and 25mg hydroxyzine. On exam, the patient is somnolent but arousable, and does not wish to participate. He has no complaints at this time. He is a current 1PPD smoker. Last IVDA was this yesterday morning. Review of Systems Review of Systems: Yes all other systems are reviewed and are negative [facility] Medical History Cigarette smoker Embolic cerebral infarction Endocarditis Intravenous drug abuse Methadone dependence Polysubstance abuse Septic embolism Social History Household Members: None Housing: Homeless Do you presently have visiting nurse or other home services: No Alcohol intake: unknown Patient Tobacco Use Status: Current everyday Tobacco user Tobacco use type: Cigarette Cigarette Packs Per Day: 1 Cigarettes Per Day: 20.0 Years Smoked: 16 Smoked in Last 30 Days: Yes e-Cigarette/Vaping Use: Never Used Patient Interested in Nicotine Replacement: Yes Patient Given Instructions on How to Stop Smoking: No (Refused) Second Hand Smoke Exposure: No Use of substances other than those prescribed or required for medical reasons: Yes Substance Use Type: Crack/Cocaine, Heroin, IV Drugs and Marijuana Substance Use Frequency: Chronic Longstanding Last Used Substance: Just Prior to Admission Currently Displaying Signs/Symptoms of Drug Intoxication Withdrawal: Yes Any prior treatment program specific to substance use: Yes Have you been hit, kicked, punched, or otherwise hurt by someone within the past year? If so, by whom?: No Do you feel safe in your current relationship?: No Current Relationship Is there a partner from a previous relationship who is making you feel unsafe now?: No Are you made to feel afraid or neglected: No Spiritual Healthcare Practices: N/A Taoism Healthcare Practices: N/a Cultural Healthcare Practices: N/A Advance Directives: No Advance Directives Information Provided: No Do you have thoughts of harming others: None Do you have a plan to hurt others: No Plan Recently lost weight without trying: No How much weight loss: Not applicable Eating poorly because of decreased appetite: No Nutrition screen score: 0 Nutrition Risks: No Nutritional Risk Poor oral hygiene: No Meds Allergies Allergy/AdvReac Type Severity Reaction Status Date / Time No Known Allergies Allergy Verified 05/27/22 11:35 Active Medications: Current Medications Acetaminophen (Acetaminophen 325 Mg Tablet) 650 mg PO Q6H PRN PRN Reason: Headache/Pain Mild Scale (1-3) Last Admin: 09/01/22 16:28 Dose: 650 mg Al Hydroxide/Mg Hydroxide (Magnesium Hydrox/Alum Hydrox 30 Ml Oral.Susp) 30 ml PO Q6H PRN PRN Reason: Heartburn/Nausea Clonidine HCl (Clonidine Hcl 0.1 Mg Tablet) 0.1 mg PO TID PRN; Protocol PRN Reason: anxiety, withdrawal Last Admin: 09/01/22 15:53 Dose: 0.1 mg Hydroxyzine HCl (Hydroxyzine Hcl 25 Mg Tablet) 25 mg PO Q6H PRN PRN Reason: Anxiety Last Admin: 09/01/22 16:27 Dose: 25 mg Lorazepam (Lorazepam 1 Mg Tablet) 1 mg PO Q4H PRN PRN Reason: anxiety, withdrawal Last Admin: 09/01/22 15:53 Dose: 1 mg Magnesium Hydroxide (Milk Of Magnesia 30 Ml Oral.Susp) 30 ml PO DAILY PRN PRN Reason: Constipation Methadone HCl (Methadone Hcl 20 Mg/2 Ml Oral.Conc) 100 mg PO DAILY AVNI Multivitamins/Vitamin C (Multivitamin Tablet) 1 tab PO DAILY AVNI Olanzapine (Olanzapine 5 Mg Tablet) 5 mg PO Q4H PRN PRN Reason: agitation, aggression, violenc Trazodone HCl (Trazodone Hcl 50 Mg Tablet) 50 mg PO BEDTIME MRX1 PRN PRN Reason: Insomnia Home Medications Medication Instructions Recorded Confirmed Last Taken Type methadone 100 mg PO DAILY 05/28/22 09/01/22 09/01/22 History Physical Exam Vital Signs and Narrative: Vital Signs: Last Vital Signs Temp 97.5 F 09/01/22 15:33 Pulse 67 09/01/22 15:33 Resp 18 09/01/22 15:33 BP 101/59 L 09/01/22 15:33 Pulse Ox 100 09/01/22 15:33 O2 Del Method Room Air 09/01/22 15:33 BMI result Body Mass Index 20.9 Constitutional - somnolent but arousable, No apparent distress Eyes - PERRLA, EOMI Cardiovascular - S1S2, RRR, no murmurs, No edema Respiratory - Normal lung expansion, Normal respiratory effort, No respiratory distress, CTA bilaterally Gastrointestinal - NT / ND; +BS; No rebound or guarding Extremities - no calf tenderness bilaterally, no swelling Skin - Warm/Dry Neurological - somnolent but arousable Psychological - depressed mood, flat affect Assessment and Plan (1) Routine medical exam: Status: Acute (2) Gram-positive cocci in clusters: Status: Acute Plan 31 year old male with history IVDA, polysubstance use on methadone, hx endocarditis with septic emboli, hx multiple intracranial inafarctions admitted to psychiatry with consult placed to medicine for medical H&P and evaluation of chest pain. #Mood disorder -plan per psychiatry #Polysubstance abuse -plan per psychiatry -urine tox screen positive for cocaine, fentanyl, opiates, methadone, THC -continue methadone home dose # chest pain-atypical -troponins negative x2 at [facility], EKG without any ischemic changes, CTA chest negative for PE or cardiopulmonary abnormality -pain management as appropriate # positive blood cultures x1- [facility] -1/2 blood cultures growing Gram-positive cocci in clusters, possible contaminant -repeat blood cultures ordered -patient is afebrile, vital stable, no leukocytosis # transaminitis- unspecified chronicity -recheck CMP a.m. -hepatitis panel ordered # history endocarditis/septic emboli -no tricuspid valve replacement per patient, reports treated medically with IV antibiotics long-term #Cigarette smoker -recommend NRT Reviewed [facility] ED notes, CTA chest, CBC< CMP, trops, U tox, MRI 02/23, Blood cultures, Hospital DS [facility] 02/23 Thank you for this consult, we will continue to follow Time Spent With Patient Time: Total time managing care of this patient today ____ minutes.
[2022-09-02] MEDS: LORazepam 1 MG TABLET PO ×2 (06:25→17:44)
[2022-09-02] MEDS: hydrOXYzine HCL 25 MG TABLET PO ×2 (06:53→17:45)
[2022-09-02] MEDS: methADONE HCl 20 MG/2 ML ORAL.CONC 100 MG PO (08:36)
[2022-09-02] MEDS: OLANZapine 5 MG TABLET PO (17:45)
[2022-09-02] MEDS: cloNIDine HCL 0.1 MG TABLET PO (17:45)
[2022-09-02 18:00] VITALS: RESP 16
--- NOTE | 2022-09-02 18:13 | PM.EVENT ---
Event Note Date of Service: 09/02/22 Event Note: Final blood culture report requested and received from [facility]. Blood culture x1 positive for coag neg staph with staph epidermidis detected. BC 2 no growth. Pt refusing repeating cultures. Discussed with ID, at this time nothing to do. Will sign off, please do not hesitate to reach out with questions. Time Spent With Patient Time: Total time managing care of this patient today ____ minutes.
--- NOTE | 2022-09-02 18:21 | HO.PSYADMNOT ---
HPI Date of Service: 09/02/22 Chief Complaint: F31.12 Bipolar disorder F11.20 Opioid use disorder Sources of Information: patient interviewed, chart reviewed and crisis/core team assessment reviewed HPI Subjective Notes: [place] Warning and Section 12B Healthcare Proxy: No Guardianship: No Medical Problems Affecting Mental Status: No Narrative: 31 yo male, hx of bipolar disorder and polysubstance use disorder, on a 12B from [facility], who presented to their ER 08/31 with L sided CP and history endocarditis, septic emboli. Reported to team fatigue, fever, chest pain, méndez, L sided chest pain 4-5 days [employer], 09/11, cramping, sob. Reported IVDU. Exam was essentially negative, no fever, lactic acidosis, leukocytosis, blood cultures were taken and # grew 1/2 gram positive cocci in clusters, BC2 with no growth. Pt was about to discharge when he told team he was not safe with thoughts of SI to OD on substances and self-harm. Told team he was having difficulty regulating his emotions, not engaging in substance use and was suicidal. Told team he was frustrated in not being able to secure placement at detox. Substance use he reports is to medicate mental health sx. Pt essentially not participating on admission, To bed, requesting prn's. Will not interview, refused all diagnostics, including repeat blood cultures. States he is feeling tired, needing to sleep and manage symptoms. Past Psychiatric History: IP: [place] OP: None Meds: none currently Medical Evaluation Reviewed: Yes [facility] Medical History (Updated 09/03/22 @ 12:11 by Susy Reese, SUE) Bipolar disorder Cigarette smoker Embolic cerebral infarction Endocarditis Intravenous drug abuse Methadone dependence Polysubstance abuse Septic embolism Narrative: Tells team he is in need of valve repair, however, cannot stop using long enough to qualify Family History: Denies Social History: Pt will not engage at this time. Substance History: Methadone 100 mg daily with [facility]N Current use 5 bundles daily with one half-gram cocaine daily Daily nicotine Hx of opiates, methadone, fentanyl, cocaine, cannabis Reports hx of detox admits Trauma History: Affirms Diagnostics Vital Signs (24Hr): BMI result Body Mass Index 20.9 Labs Labs: 08/31/22 RBC 4.4 (4.5-5.5) HGB 13.4 (13.5-17.5) HCT 40.6 (42-54) PT 14.1 (10.6-13.9) T. Prot 8.7 (6-8) AST 163 (10-42) ANGELA 225 (10-60) Toxicology positive for methadone, cocaine, THC, Opiates Troponins-negative EKG EKG: reviewed EKG Comment: QTc 438 NSR. No change from 05/05/22 Imaging Radiology Impressions: Chest CT Angiography negative. No CT evidence of pulmonary thromobembolism or intrathoracic pathology, no lung infiltrates or other abnormalities Meds/Allergies Meds Home Medications Medication Instructions Recorded Confirmed Type methadone 100 mg PO DAILY 05/28/22 09/01/22 History Allergies Allergies Allergy/AdvReac Type Severity Reaction Status Date / Time No Known Allergies Allergy Verified 05/27/22 11:35 Mental Status Exam Mental Status Exam Patient Appearance: Fatigued and Disheveled Patient Orientation: Person, Place, Time and Situation Level of Consciousness: Drowsy Patient Behavior: Anxious, Resistive to Care, Avoidant, Fatigued, Isolative, Uncooperative and Poor Eye Contact Mood Description: Depressed and Hostile Affect Description: Flat Patient Cognition Impaired: No Ability to Follow Directions: Fair Speech Pattern: Spontaneous Speech Memory Description: Intact Hallucinations: None Delusions: Not Present Thought Process: Distracted and Goal Oriented Thought Content: positive for Goal Oriented Depressive Symptoms: Thoughts of /Suicide Judgement: Fair Assessment & Plan Assessment & Plan (1) Polysubstance abuse: Status: Acute Code(s): F19.10 - Other psychoactive substance abuse, uncomplicated (2) Bipolar disorder: Status: Acute Code(s): F31.9 - Bipolar disorder, unspecified Plan 31 yo male, history of bipolar disorder and polysubstance use disorder. Section 12B from [facility]. Pt essentially in bed, not wanting to participate in any treatment since admission. Plan: Encourage alliance and participation Continue detox Continue methadone Pt refusing all medical diagnostics at this time Patient educated on: medication risk/benefits, therapeutic strategies and medical condition Informed Consent: understands Reason for continued inpatient stay Substantial Risk for: med/psych decompensation Statement Statement: I have reviewed the history and physical and performed a pertinent examination on my patient. No changes have occurred unless specified. If the History and Physical was not performed prior to admission, the Hospitalist's service will be consulted for completing the admission physical. Time Spent With Patient Time: Total time managing care of this patient today ____ minutes.
--- NOTE | 2022-09-02 22:25 | PC.NURSE ---
pt refused all lab draws over the day at 7am, 1500 and 1730. was notified.
--- NOTE | 2022-09-03 08:57 | HO.PSYCHPN ---
Subjective Subjective Date of Service: 09/03/22 Reason For Visit: F31.12 Bipolar disorder F11.20 Opioid use disorder Subjective Notes: Conditional Voluntary Healthcare Proxy: No Guardianship: No Medical Problems Affecting Mental Status: No Interim History: In bed, withdrawn. Describes feeling restless, tired and irritated . Refusing medical diagnostics, including repeat blood cultures as one has tested positive, one negative when drawn at [facility]. Pt verbalized understanding of risk of refusal Declines milieu participation. Medication Compliance: Yes Side effects from medications: No Attending Groups: No Review of Systems Acute medical concerns: No As noted above. Medical Review of Systems: unchanged Mental Status Exam Mental Status Exam Patient Appearance: Fatigued and Disheveled Patient Orientation: Person, Place, Time and Situation Level of Consciousness: Drowsy Patient Behavior: Anxious, Resistive to Care, Avoidant, Fatigued, Isolative, Uncooperative and Poor Eye Contact Mood Description: Depressed and Hostile Affect Description: Flat Patient Cognition Impaired: No Ability to Follow Directions: Fair Speech Pattern: Spontaneous Speech Memory Description: Intact Hallucinations: None Delusions: Not Present Thought Process: Distracted and Goal Oriented Thought Content: positive for Goal Oriented Depressive Symptoms: Thoughts of /Suicide Judgement: Fair Diagnostics Vital Signs (24Hr): Vital Signs - 24 hr 09/02/22 18:00 Respiratory Rate 16 BMI result Body Mass Index 20.9 Medications Medications Current Medications Acetaminophen (Acetaminophen 325 Mg Tablet) 650 mg PO Q6H PRN PRN Reason: Headache/Pain Mild Scale (1-3) Last Admin: 09/01/22 16:28 Dose: 650 mg Al Hydroxide/Mg Hydroxide (Magnesium Hydrox/Alum Hydrox 30 Ml Oral.Susp) 30 ml PO Q6H PRN PRN Reason: Heartburn/Nausea Clonidine HCl (Clonidine Hcl 0.1 Mg Tablet) 0.1 mg PO TID PRN; Protocol PRN Reason: anxiety, withdrawal Last Admin: 09/02/22 17:45 Dose: 0.1 mg Hydroxyzine HCl (Hydroxyzine Hcl 25 Mg Tablet) 25 mg PO Q6H PRN PRN Reason: Anxiety Last Admin: 09/02/22 17:45 Dose: 25 mg Lorazepam (Lorazepam 1 Mg Tablet) 1 mg PO Q4H PRN PRN Reason: anxiety, withdrawal Last Admin: 09/02/22 17:44 Dose: 1 mg Magnesium Hydroxide (Milk Of Magnesia 30 Ml Oral.Susp) 30 ml PO DAILY PRN PRN Reason: Constipation Methadone HCl (Methadone Hcl 20 Mg/2 Ml Oral.Conc) 100 mg PO DAILY [facility] Last Admin: 09/02/22 08:36 Dose: 100 mg Multivitamins/Vitamin C (Multivitamin Tablet) 1 tab PO DAILY AVNI Last Admin: 09/02/22 08:38 Dose: Not Given Olanzapine (Olanzapine 5 Mg Tablet) 5 mg PO Q4H PRN PRN Reason: agitation, aggression, violenc Last Admin: 09/02/22 17:45 Dose: 5 mg Trazodone HCl (Trazodone Hcl 50 Mg Tablet) 50 mg PO BEDTIME MRX1 PRN PRN Reason: Insomnia Allergies Allergies Allergy/AdvReac Type Severity Reaction Status Date / Time No Known Allergies Allergy Verified 05/27/22 11:35 Assessment & Plan Assessment & Plan (1) Bipolar disorder: Status: Acute Code(s): F31.9 - Bipolar disorder, unspecified Assessment and Plan: 09/03/22: Continue to attempt to engage pt in care/treatment Monitor withdrawal. (2) Polysubstance abuse: Status: Acute Code(s): F19.10 - Other psychoactive substance abuse, uncomplicated Plan 31 year old male with history IVDA, polysubstance use on methadone, hx endocarditis with septic emboli, hx multiple intracranial inafarctions admitted to psychiatry with consult placed to medicine for medical H&P and evaluation of chest pain. #Mood disorder -plan per psychiatry #Polysubstance abuse -plan per psychiatry -urine tox screen positive for cocaine, fentanyl, opiates, methadone, THC -continue methadone home dose # chest pain-atypical -troponins negative x2 at [facility], EKG without any ischemic changes, CTA chest negative for PE or cardiopulmonary abnormality -pain management as appropriate # positive blood cultures x1- [facility] -1/ blood cultures growing Gram-positive cocci in clusters, possible contaminant -repeat blood cultures ordered -patient is afebrile, vital stable, no leukocytosis # transaminitis- unspecified chronicity -recheck CMP a.m. -hepatitis panel ordered # history endocarditis/septic emboli -no tricuspid valve replacement per patient, reports treated medically with IV antibiotics long-term #Cigarette smoker -recommend NRT Reviewed [facility] ED notes, CTA chest, CBC< CMP, trops, U tox, MRI 02/23, Blood cultures, Hospital DS [facility] 02/23 Thank you for this consult, we will continue to follow Patient educated on: medication risk/benefits and therapeutic strategies Informed Consent: understands Reason for continued inpatient stay Substantial Risk for: rapid decompensation Time Spent With Patient Time: Total time managing care of this patient today ____ minutes.
[2022-09-03 09:10] VITALS: BP 104/61; PULSE 60; RESP 16; TEMP 36.4; O2SAT 98
[2022-09-03] MEDS: cloNIDine HCL 0.1 MG TABLET PO ×2 (09:14→18:04)
[2022-09-03] MEDS: LORazepam 1 MG TABLET PO ×2 (09:14→18:04)
[2022-09-03] MEDS: hydrOXYzine HCL 25 MG TABLET PO ×2 (09:14→18:04)
[2022-09-03] MEDS: methADONE HCl 20 MG/2 ML ORAL.CONC 100 MG PO (09:15)
--- NOTE | 2022-09-03 12:06 | MHC.RECOVRN ---
This medical technical writer attempted to meet with patient after addiction consult was placed. Pt resting in bed, reports feeling not great . Pt request this medical technical writer to return later.
--- NOTE | 2022-09-03 14:31 | PC.NURSE ---
PT refused lab draw for recheck lab cultures. CAW made aware via tiger text.
[2022-09-03 18:00] VITALS: BP 110/68; PULSE 94; RESP 16; TEMP 36.1; O2SAT 99
[2022-09-03] MEDS: OLANZapine 5 MG TABLET PO (18:04)
[2022-09-04] MEDS: methADONE HCl 20 MG/2 ML ORAL.CONC 100 MG PO (09:18)
[2022-09-04 09:46] VITALS: BP 107/62; PULSE 74; RESP 16; TEMP 36.9; O2SAT 98
[2022-09-04] MEDS: hydrOXYzine HCL 25 MG TABLET PO ×2 (09:55→17:52)
[2022-09-04] MEDS: cloNIDine HCL 0.1 MG TABLET PO ×2 (09:55→17:51)
[2022-09-04] MEDS: LORazepam 1 MG TABLET PO ×2 (09:55→17:53)
--- NOTE | 2022-09-04 11:51 | HO.PSYCHPN ---
Subjective Subjective Date of Service: 09/04/22 Reason For Visit: F31.12 Bipolar disorder F11.20 Opioid use disorder Subjective Notes: Conditional Voluntary and 3 Day Healthcare Proxy: No Guardianship: No Medical Problems Affecting Mental Status: No Interim History: Reports anxiety, depression, withdrawal. Signed a three day notice Denies interest in discussion of sx. Isolative and spending time in bed, although more alert and answering questions with greater clarity. Medication Compliance: Yes Side effects from medications: No Attending Groups: No Review of Systems Acute medical concerns: No Medical Review of Systems: unchanged Mental Status Exam Mental Status Exam Patient Appearance: Fatigued and Disheveled Patient Orientation: Person, Place, Time and Situation Level of Consciousness: Drowsy Patient Behavior: Anxious, Resistive to Care, Avoidant, Fatigued, Isolative, Uncooperative and Poor Eye Contact Mood Description: Depressed and Hostile Affect Description: Flat Patient Cognition Impaired: No Ability to Follow Directions: Fair Speech Pattern: Spontaneous Speech Memory Description: Intact Hallucinations: None Delusions: Not Present Thought Process: Distracted and Goal Oriented Thought Content: positive for Goal Oriented Depressive Symptoms: Thoughts of /Suicide Judgement: Fair Diagnostics Vital Signs (24Hr): Vital Signs - 24 hr 09/03/22 18:00 09/04/22 09:46 Temperature 96.9 F 98.4 F Pulse Rate 94 74 Respiratory Rate 16 16 Blood Pressure 110/68 107/62 Pulse Oximetry 99 98 Oxygen Delivery Method Room Air Room Air BMI result Body Mass Index 20.9 Medications Medications Current Medications Acetaminophen (Acetaminophen 325 Mg Tablet) 650 mg PO Q6H PRN PRN Reason: Headache/Pain Mild Scale (1-3) Last Admin: 09/01/22 16:28 Dose: 650 mg Al Hydroxide/Mg Hydroxide (Magnesium Hydrox/Alum Hydrox 30 Ml Oral.Susp) 30 ml PO Q6H PRN PRN Reason: Heartburn/Nausea Clonidine HCl (Clonidine Hcl 0.1 Mg Tablet) 0.1 mg PO TID PRN; Protocol PRN Reason: anxiety, withdrawal Last Admin: 09/04/22 09:55 Dose: 0.1 mg Hydroxyzine HCl (Hydroxyzine Hcl 25 Mg Tablet) 25 mg PO Q6H PRN PRN Reason: Anxiety Last Admin: 09/04/22 09:55 Dose: 25 mg Lorazepam (Lorazepam 1 Mg Tablet) 1 mg PO Q4H PRN PRN Reason: anxiety, withdrawal Last Admin: 09/04/22 09:55 Dose: 1 mg Magnesium Hydroxide (Milk Of Magnesia 30 Ml Oral.Susp) 30 ml PO DAILY PRN PRN Reason: Constipation Methadone HCl (Methadone Hcl 20 Mg/2 Ml Oral.Conc) 100 mg PO DAILY [facility] Last Admin: 09/04/22 09:18 Dose: 100 mg Multivitamins/Vitamin C (Multivitamin Tablet) 1 tab PO DAILY [facility] Last Admin: 09/04/22 09:39 Dose: Not Given Olanzapine (Olanzapine 5 Mg Tablet) 5 mg PO Q4H PRN PRN Reason: agitation, aggression, violenc Last Admin: 09/03/22 18:04 Dose: 5 mg Trazodone HCl (Trazodone Hcl 50 Mg Tablet) 50 mg PO BEDTIME MRX1 PRN PRN Reason: Insomnia Allergies Allergies Allergy/AdvReac Type Severity Reaction Status Date / Time No Known Allergies Allergy Verified 05/27/22 11:35 Assessment & Plan Assessment & Plan (1) Bipolar disorder: Status: Acute Code(s): F31.9 - Bipolar disorder, unspecified Assessment and Plan: 09/03/22: Continue to attempt to engage pt in care/treatment Monitor withdrawal. 09/04/22: Three day notice submitted. Continue current regime and plan of care Pt presents with minimal interest in treatment at this time. (2) Polysubstance abuse: Status: Acute Code(s): F19.10 - Other psychoactive substance abuse, uncomplicated Plan 31 year old male with history IVDA, polysubstance use on methadone, hx endocarditis with septic emboli, hx multiple intracranial inafarctions admitted to psychiatry with consult placed to medicine for medical H&P and evaluation of chest pain. #Mood disorder -plan per psychiatry #Polysubstance abuse -plan per psychiatry -urine tox screen positive for cocaine, fentanyl, opiates, methadone, THC -continue methadone home dose # chest pain-atypical -troponins negative x2 at [facility], EKG without any ischemic changes, CTA chest negative for PE or cardiopulmonary abnormality -pain management as appropriate # positive blood cultures x1- [facility] -1/2 blood cultures growing Gram-positive cocci in clusters, possible contaminant -repeat blood cultures ordered -patient is afebrile, vital stable, no leukocytosis # transaminitis- unspecified chronicity -recheck CMP a.m. -hepatitis panel ordered # history endocarditis/septic emboli -no tricuspid valve replacement per patient, reports treated medically with IV antibiotics long-term #Cigarette smoker -recommend NRT Reviewed [facility] ED notes, CTA chest, CBC< CMP, trops, U tox, MRI 02/23, Blood cultures, Hospital DS [facility] 02/23 Thank you for this consult, we will continue to follow Informed Consent: understands Reason for continued inpatient stay Substantial Risk for: rapid decompensation Time Spent With Patient Time: Total time managing care of this patient today ____ minutes.
--- NOTE | 2022-09-04 16:24 | P.EN_ITS ---
Event Note Date of Service: 09/04/22 Event Note: Addiction consult placed for patient supervising editor trailer attempted to meet with patient on 09/03. Patient declined. This race and sports book writer spoke with attending, encouraged to reconsult should patient change his mind Time Spent With Patient Time: Total time managing care of this patient today ____ minutes.
--- NOTE | 2022-09-04 16:24 | PM.EVENT ---
Event Note Date of Service: 09/04/22 Event Note: Addiction consult placed for patient steward/stewardess dining room attempted to meet with patient on 09/03. Patient declined. This proposal writer spoke with attending, encouraged to reconsult should patient change his mind Time Spent With Patient Time: Total time managing care of this patient today ____ minutes.
[2022-09-04 17:45] VITALS: BP 109/68; PULSE 65
[2022-09-04] MEDS: OLANZapine 5 MG TABLET PO (17:51)
[2022-09-05 08:42] VITALS: BP 104/52; PULSE 65; RESP 20; TEMP 2.1; TEMP 35.7; O2SAT 99
[2022-09-05] MEDS: methADONE HCl 20 MG/2 ML ORAL.CONC 100 MG PO (08:53)
[2022-09-05] MEDS: hydrOXYzine HCL 25 MG TABLET PO ×2 (08:54→20:21)
[2022-09-05] MEDS: LORazepam 1 MG TABLET PO ×2 (08:54→20:22)
[2022-09-05] MEDS: cloNIDine HCL 0.1 MG TABLET PO ×2 (09:02→20:21)
--- NOTE | 2022-09-05 11:48 | HO.PSYCHPN ---
Subjective Subjective Date of Service: 09/05/22 Reason For Visit: F31.12 Bipolar disorder F11.20 Opioid use disorder Interim History: Patient denies symptoms today. Reports improvement in mood. He remains isolative. In bed most of the time. Feels medications are helpful. Signed a three day notice Denies SI/HI/AVH. Review of Systems Review of Systems Yes all other systems are reviewed and are negative and Unobtainable due to mental status Reports behavioral changes Psychiatric: Reports abnormal sleep pattern, Reports behavioral changes, Reports depression, Reports difficulty concentrating, Reports hopelessness, Reports irritability and Reports suicidal ideation Mental Status Exam Mental Status Exam Patient Appearance: Fatigued and Disheveled Patient Orientation: Person, Place, Time and Situation Level of Consciousness: Drowsy Patient Behavior: Anxious, Resistive to Care, Avoidant, Fatigued, Isolative, Uncooperative and Poor Eye Contact Mood Description: Depressed and Hostile Affect Description: Flat Patient Cognition Impaired: No Ability to Follow Directions: Fair Speech Pattern: Spontaneous Speech Memory Description: Intact Diagnostics Vital Signs (24Hr): Vital Signs - 24 hr 09/04/22 17:45 09/05/22 08:42 Temperature 35.7 F L Pulse Rate 65 65 Respiratory Rate 20 Blood Pressure 109/68 104/52 L Pulse Oximetry 99 Oxygen Delivery Method Room Air BMI result Body Mass Index 20.9 Medications Medications Current Medications Acetaminophen (Acetaminophen 325 Mg Tablet) 650 mg PO Q6H PRN PRN Reason: Headache/Pain Mild Scale (1-3) Last Admin: 09/01/22 16:28 Dose: 650 mg Al Hydroxide/Mg Hydroxide (Magnesium Hydrox/Alum Hydrox 30 Ml Oral.Susp) 30 ml PO Q6H PRN PRN Reason: Heartburn/Nausea Clonidine HCl (Clonidine Hcl 0.1 Mg Tablet) 0.1 mg PO TID PRN; Protocol PRN Reason: anxiety, withdrawal Last Admin: 09/05/22 09:02 Dose: 0.1 mg Hydroxyzine HCl (Hydroxyzine Hcl 25 Mg Tablet) 25 mg PO Q6H PRN PRN Reason: Anxiety Last Admin: 09/05/22 08:54 Dose: 25 mg Lorazepam (Lorazepam 1 Mg Tablet) 1 mg PO Q4H PRN PRN Reason: anxiety, withdrawal Last Admin: 09/05/22 08:54 Dose: 1 mg Magnesium Hydroxide (Milk Of Magnesia 30 Ml Oral.Susp) 30 ml PO DAILY PRN PRN Reason: Constipation Methadone HCl (Methadone Hcl 20 Mg/2 Ml Oral.Conc) 100 mg PO DAILY [facility] Last Admin: 09/05/22 08:53 Dose: 100 mg Multivitamins/Vitamin C (Multivitamin Tablet) 1 tab PO DAILY [facility] Last Admin: 09/05/22 09:09 Dose: Not Given Olanzapine (Olanzapine 5 Mg Tablet) 5 mg PO Q4H PRN PRN Reason: agitation, aggression, violenc Last Admin: 09/04/22 17:51 Dose: 5 mg Trazodone HCl (Trazodone Hcl 50 Mg Tablet) 50 mg PO BEDTIME MRX1 PRN PRN Reason: Insomnia Allergies Allergies Allergy/AdvReac Type Severity Reaction Status Date / Time No Known Allergies Allergy Verified 05/27/22 11:35 Assessment & Plan Assessment & Plan (1) Bipolar disorder: Status: Acute Code(s): F31.9 - Bipolar disorder, unspecified Assessment and Plan: 09/03/22: Continue to attempt to engage pt in care/treatment Monitor withdrawal. 09/04/22: Three day notice submitted. Continue current regime and plan of care Pt presents with minimal interest in treatment at this time. 09/05: Continue current treatment plan. (2) Polysubstance abuse: Status: Acute Code(s): F19.10 - Other psychoactive substance abuse, uncomplicated Plan 31 year old male with history IVDA, polysubstance use on methadone, hx endocarditis with septic emboli, hx multiple intracranial inafarctions admitted to psychiatry with consult placed to medicine for medical H&P and evaluation of chest pain. #Mood disorder -plan per psychiatry #Polysubstance abuse -plan per psychiatry -urine tox screen positive for cocaine, fentanyl, opiates, methadone, THC -continue methadone home dose # chest pain-atypical -troponins negative x2 at [facility] [place], EKG without any ischemic changes, CTA chest negative for PE or cardiopulmonary abnormality -pain management as appropriate # positive blood cultures x1- [facility] -1/2 blood cultures growing Gram-positive cocci in clusters, possible contaminant -repeat blood cultures ordered -patient is afebrile, vital stable, no leukocytosis # transaminitis- unspecified chronicity -recheck CMP a.m. -hepatitis panel ordered # history endocarditis/septic emboli -no tricuspid valve replacement per patient, reports treated medically with IV antibiotics long-term #Cigarette smoker -recommend NRT Reviewed [facility] ED notes, CTA chest, CBC< CMP, trops, U tox, MRI 02/23, Blood cultures, Hospital DS [facility] 02/23 Thank you for this consult, we will continue to follow Reason for continued inpatient stay Substantial Risk for: inability to function and rapid decompensation Time Spent With Patient Time: Total time managing care of this patient today ____ minutes.
[2022-09-05 16:35] VITALS: BP 95/54; PULSE 65; TEMP 35.6
[2022-09-05] MEDS: Acetaminophen 325 MG TABLET 650 MG PO (16:53)
[2022-09-05] MEDS: OLANZapine 5 MG TABLET PO (20:21)
[2022-09-06 08:56] VITALS: BP 145/65; PULSE 69; RESP 16; TEMP 36.8; O2SAT 98
[2022-09-06] MEDS: methADONE HCl 20 MG/2 ML ORAL.CONC 100 MG PO (09:01)
[2022-09-06] MEDS: hydrOXYzine HCL 25 MG TABLET PO ×2 (11:36→17:51)
[2022-09-06] MEDS: LORazepam 1 MG TABLET PO ×2 (11:36→17:51)
--- NOTE | 2022-09-06 13:20 | PC.NURSE ---
pt has refused NRT. I'm not quitting, so why bother ?
[2022-09-06 17:50] VITALS: BP 101/60; PULSE 70; TEMP 36.4; O2SAT 98
[2022-09-06] MEDS: OLANZapine 5 MG TABLET PO (17:51)
[2022-09-06] MEDS: cloNIDine HCL 0.1 MG TABLET PO (17:51)
[2022-09-07 08:44] VITALS: BP 159/78; PULSE 96; RESP 16; TEMP 36.5; O2SAT 94
[2022-09-07] MEDS: LORazepam 1 MG TABLET PO (09:05)
[2022-09-07] MEDS: methADONE HCl 20 MG/2 ML ORAL.CONC 100 MG PO (09:05)
[2022-09-07] MEDS: hydrOXYzine HCL 25 MG TABLET PO (09:05)
--- NOTE | 2022-09-07 15:50 | P.DS_ITS ---
DS: Providers Provider Date of Service: 09/07/22 Date of admission: 09/01/22 15:01 Date of discharge: 09/07/22 Primary care physician: Sebastien Fitzgerald MD Admitting clinician: Susy Reese Attending physician on admission: London Greenwood Consults: 09/01/22 15:25 Consult to Hospitalist Routine Comment: Consulting Provider: Hospitalist Reason For Exam: Transfer from [facility] 09/01/22 16:36 Consult to Hospitalist Stat Comment: Consulting Provider: Hospitalist Reason For Exam: Chest Pain, history of endocarditis, septic emboli 09/01/22 17:13 Addiction Medicine Routine Consulting Provider: Addiction Covering Reason for consultation: Methadone pt, difficult detox, [facility] transfer Has provider been notified: No Attending physician on discharge: London Greenwood Discharging clinician: Susy Reese DS: Diagnosis Discharge Diagnosis (1) Bipolar disorder: Status: Acute (2) Polysubstance abuse: Status: Acute DS: Medications Discharge Medications Home Medications: Home Medications Medication Instructions Recorded Confirmed methadone 100 mg PO DAILY 05/28/22 09/01/22 Previous Rx's Medication Instructions Recorded multivitamin (Daily-Izabela tablet) 1 tab PO DAILY #30 tabs 09/07/22 olanzapine 5 mg tablet (Zyprexa) 5 mg PO BEDTIME #30 tabs 09/07/22 Mental Status Exam Mental Status Exam Patient Appearance: Appropriate Patient Orientation: Person, Place, Time and Situation Level of Consciousness: Alert Patient Behavior: Talkative, Cooperative and Good Eye Contact Mood Description: Appropriate Affect Description: Appropriate Patient Cognition Impaired: No Ability to Follow Directions: Good Speech Pattern: Spontaneous Speech Memory Description: Intact Hallucinations: None Delusions: Not Present Thought Process: Distracted Thought Content: positive for [place], positive for Circumstantial and positive for Suicidal Ideation (denies SI, plan or intent) Depressive Symptoms: Difficulty Sleeping and Thoughts of /Suicide (denies) Judgement: Fair DS: Summary Hospital Course Hospital Course: Admission to adult psychiatry for exacerbation of opiate use disorder, polysubstance use disorder, bipolar disorder with SI. Pt admitted on Section 12B. Hx of endocarditis and septic emboli. Pt reported SI as he was not able to admit to detox. He declined medical and psychiatric treatment during his admission, slept and was isolative during his admission, declined to join in and participate in the milieu and discharged outright, declining medication interventions. He will continue methadone therapy. Time spent discussing smoking cessation with patient: 3 to 10 minutes Status at Discharge Functional status at discharge: independent ambulation Overall status at discharge: patient is back to baseline Time Spent with Patient Time attestation: Total time managing care of this patient today ____ minutes. Time spent: Greater than 30 minutes Discharge Plan Discharge Anticipated Discharge Date/Time: 09/07/22 12:52 Patient Disposition: Xfer Other Discharge Diagnosis: Bipolar Disorder Polysubstance Use Disorder Opioid Use Disorder- Methadone Maintenance Plan Referrals: Lynn Collins: [facility] ([facility]): Psychiatry [Other] - 10/09/22 10:00 am (Initial psychiatric evaluation for medication management Appointment is in person at [facility] in [place]) Kurt Oliver: [facility] ([facility]): Therapy [Other] - 09/11/22 11:00 am (Initial Diagnostic Evaluation for Therapy Appointment is in person at [facility]) Sebastien Fitzgerald MD [Primary Care Provider] - 1 Week (left message w/ office for follow-up appt; please call to follow-up) Discharge Medications: No Action methadone 10 mg/5 mL Solution 100 mg PO DAILY Patient Comments: [facility] [place] [phone] Discharge Orders: Discharge Order (Routine); Ordered 09/07/22 Ordered By: Susy Reese Diet: Advance to usual diet Activity on Discharge: As tolerated Stand Alone Forms: Patient Portal Discharge page, Community Support Care Plan Goals: Mood and Behavioral Stability Work on Sobriety Health Concerns: Mood and Behavioral Stability Work on Sobriety Plan of Treatment: Attend scheduled appointments Take medications as directed Assessment: Pt interviewed prior to discharge and found to be fully oriented and without SI/HI. Pt has insight and demonstrates good judgment in terms of wanting to continue with treatment. Pt is not in imminent risk of harm to self or others and has a safety plan that includes presenting to the closest ER or calling 911 if feeling unsafe. Pt has been observed closely by nursing and unit staff throughout admission. Pt has not engaged in any behaviors that suggest dangerousness to self or others and has demonstrated appropriate behaviors and inpulse control. Discharge Date/Time: 09/07/22 11:27
--- NOTE | 2022-09-07 15:50 | HO.PSYCHPN ---
Subjective Subjective Date of Service: 09/06/22 Reason For Visit: F31.12 Bipolar disorder F11.20 Opioid use disorder Subjective Notes: Conditional Voluntary and 3 Day Healthcare Proxy: No Guardianship: No Medical Problems Affecting Mental Status: No Interim History: Jamshid reports feeling improved. Three day notice to 09/07/22. Pt will accept referrals to out pt-he prefers [facility]. Will accept medications. Reviewed endocarditis hx and one positive blood culture at [facility] and refusal of repeat cultures on admission. Pt reports he would like to continue refusal. He reports he will follow up independently. Review of medical screening, diagnostics, rationale. Pt again will follow up independently he reports. Medication Compliance: Yes Side effects from medications: No Attending Groups: No Review of Systems Acute medical concerns: No Medical Review of Systems: unchanged Mental Status Exam Mental Status Exam Patient Appearance: Appropriate Patient Orientation: Person, Place, Time and Situation Level of Consciousness: Alert Patient Behavior: Talkative, Cooperative and Good Eye Contact Mood Description: Appropriate Affect Description: Appropriate Patient Cognition Impaired: No Ability to Follow Directions: Good Speech Pattern: Spontaneous Speech Memory Description: Intact Hallucinations: None Delusions: Not Present Thought Process: Distracted Thought Content: positive for [place], positive for Circumstantial and positive for Suicidal Ideation (denies SI, plan or intent) Depressive Symptoms: Difficulty Sleeping and Thoughts of /Suicide (denies) Judgement: Fair Diagnostics Vital Signs (24Hr): Vital Signs - 24 hr 09/06/22 17:50 09/07/22 08:44 Temperature 97.6 F 97.7 F Pulse Rate 70 96 Respiratory Rate 16 Blood Pressure 101/60 159/78 H Pulse Oximetry 98 94 Oxygen Delivery Method Room Air Room Air BMI result Body Mass Index 20.9 Medications Allergies Allergies Allergy/AdvReac Type Severity Reaction Status Date / Time No Known Allergies Allergy Verified 05/27/22 11:35 Assessment & Plan Assessment & Plan (1) Bipolar disorder: Status: Acute Code(s): F31.9 - Bipolar disorder, unspecified Assessment and Plan: 09/03/22: Continue to attempt to engage pt in care/treatment Monitor withdrawal. 09/04/22: Three day notice submitted. Continue current regime and plan of care Pt presents with minimal interest in treatment at this time. 09/05: Continue current treatment plan. 09/06/22: Continue current regime and plan of care. Three day notice to 09/07/22. (2) Polysubstance abuse: Status: Acute Code(s): F19.10 - Other psychoactive substance abuse, uncomplicated Plan 31 year old male with history IVDA, polysubstance use on methadone, hx endocarditis with septic emboli, hx multiple intracranial inafarctions admitted to psychiatry with consult placed to medicine for medical H&P and evaluation of chest pain. #Mood disorder -plan per psychiatry #Polysubstance abuse -plan per psychiatry -urine tox screen positive for cocaine, fentanyl, opiates, methadone, THC -continue methadone home dose # chest pain-atypical -troponins negative x2 at [facility], EKG without any ischemic changes, CTA chest negative for PE or cardiopulmonary abnormality -pain management as appropriate # positive blood cultures x1- [facility] -1/ blood cultures growing Gram-positive cocci in clusters, possible contaminant -repeat blood cultures ordered -patient is afebrile, vital stable, no leukocytosis # transaminitis- unspecified chronicity -recheck CMP a.m. -hepatitis panel ordered # history endocarditis/septic emboli -no tricuspid valve replacement per patient, reports treated medically with IV antibiotics long-term #Cigarette smoker -recommend NRT Reviewed [facility] ED notes, CTA chest, CBC< CMP, trops, U tox, MRI 02/23, Blood cultures, Hospital DS [facility] 02/23 Thank you for this consult, we will continue to follow Patient educated on: medication risk/benefits and medical condition Informed Consent: understands Reason for continued inpatient stay Substantial Risk for: med/psych decompensation Time Spent With Patient Time: Total time managing care of this patient today ____ minutes.
== END 2022-09-07 11:27 | disposition other institution (70) | DRG 753 ==
PROVIDERS: Admitting Provider Psychiatry & Neurology Psychiatry; PCP Internal Medicine; Visit Provider Clinical Nurse Specialist Psychiatric/Mental Health, Adult
DX: F31.9 Bipolar disorder, unspecified (principal); F11.20 Opioid dependence, uncomplicated; F17.210 Nicotine dependence, cigarettes, uncomplicated; F19.10 Other psychoactive substance abuse, uncomplicated; Z71.6 Tobacco abuse counseling; Z79.899 Other long term (current) drug therapy

== ENCOUNTER → 2022-09-01 15:01 | Outpatient (BNV) | payer OTHER, SELFPAY | PROVIDERS: Admitting Provider Psychiatry & Neurology Psychiatry; PCP Internal Medicine; Visit Provider Clinical Nurse Specialist Psychiatric/Mental Health, Adult | DX: F31.4 Bipolar disorder, current episode depressed, severe, without psychotic features (principal); F19.10 Other psychoactive substance abuse, uncomplicated | CPT/HCPCS: 90792; 99231; 99232; 99499 ==

== ENCOUNTER 2022-09-27 22:05 | Emergency (ER) | payer OTHER, SELFPAY ==
[2022-09-27 22:08] VITALS: BP 116/63; PULSE 59; RESP 16; TEMP 36.5; O2SAT 100; BMI 22.6
--- NOTE | 2022-09-28 01:17 | ED.PSYCH ---
HPI - Psych General Chief Complaint: Psychiatric Symptoms Stated Complaint: SI Time Seen by Provider: 09/27/22 22:10 Source: patient Mode of arrival: EMS Limitations: no limitations History of Present Illness HPI Narrative: Patient comes to the emergency room complaining of suicidal ideation without plan. Patient is not specific, patient states he has a of stressors. Patient denies taking any medication for psychiatric reasons, however, patient does have history of bipolar disorder, polysubstance abuse . Related Data Home Medications Medication Instructions Recorded Confirmed No Known Home Meds 09/27/22 09/27/22 Allergies Allergy/AdvReac Type Severity Reaction Status Date / Time No Known Allergies Allergy Verified 05/27/22 11:35 Review of Systems Review of Systems: Constitutional : No Weight loss, No Fever, No Chills, No Night Sweats, No Fatigue, No Malaise ENT/Mouth : No Hearing loss, No Ear Pain, No Nasal Congestion, No Sinus Pain, No Hoarseness, No sore throat, No Rhinorrhea, No Swallowing Difficulty Eyes: No Eye Pain, No Swelling, No Redness, No Foreign Body, No Discharge, No Vision Changes Cardiovascular : No Chest Pain, No SOB, No Dyspnea on Exertion, No Orthopnea, No Edema, No Palpitations Respiratory : No Cough, No Sputum, No Wheezing, No Smoke Exposure, No Dyspnea Gastrointestinal : No Nausea, No Vomiting, No Diarrhea, No Constipation, No abdominal Pain, No Hematochezia, No Melena Genitourinary : no irregular bleeding, No Dysuria, No Urinary Frequency, No Hematuria, No Urinary Incontinence, No Urgency, No Flank Pain, No Urinary Flow Changes, No Hesitancy Musculoskeletal : No joint pain, No Myalgias, No Joint Swelling Skin : No Skin Lesions, No rash Neuro : No Weakness, No Numbness, No Paresthesias, No Loss of Consciousness, No Dizziness, No Headache Psych : No Anxiety/Panic, No Depression, complaining of vague SI with no plan, no homicidal ideation Heme/Lymph: No Bruising, No Bleeding,No Lymphadenopathy Endocrine : No Polyuria, No Polydipsia, No Temperature Intolerance PMFSH Past Medical History Medical History Bipolar disorder Cigarette smoker Embolic cerebral infarction Endocarditis Intravenous drug abuse Methadone dependence Polysubstance abuse Septic embolism Social History Social History Household Members: None Housing: Homeless Do you presently have visiting nurse or other home services: No Alcohol intake: unknown Patient Tobacco Use Status: Current everyday Tobacco user Tobacco use type: Cigarette Cigarette Packs Per Day: 1 Cigarettes Per Day: 20.0 Years Smoked: 16 e-Cigarette/Vaping Use: Never Used Second Hand Smoke Exposure: No Substance Use Type: Crack/Cocaine, Heroin, IV Drugs and Marijuana Advance Directives: No Advance Directives Information Provided: No service: No Sexual orientation: Straight/Heterosexual Physical Exam Vital Signs: Vital Signs: Last Vital Signs Temp 97.7 F 09/27/22 22:08 Pulse 59 09/27/22 22:08 Resp 16 09/27/22 22:08 BP 116/63 09/27/22 22:08 Pulse Ox 100 09/27/22 22:08 O2 Del Method Room Air 09/27/22 22:08 BMI result Body Mass Index 22.6 Const: Other: Appearance: Alert. Oriented X3. No acute distress. Eyes: Pupils equal, round and reactive to light. ENT: Pharynx normal. Neck: Normal inspection. Neck supple. No lymph nodes noted. No crepitus CVS: Normal heart rate and rhythm. Pulses normal. Normal S1 and S2 Respiratory: No respiratory distress. Breath sounds normal. No Wheezing. No rales Abdomen: Soft and nontender. No rigidity. No distention. Skin: Skin warm and dry. Normal skin color. Normal skin turgor. Extremities: No lower extremity edema. No Lacerations. No Rash Neuro: Oriented X 3. No motor deficit. No sensory deficit. Moving all extremities. No slurred speech. CN 2 through 12 grossly intact Psych: calm, cooperative, normal affect Medical Decision Making Medical Decision Making MDM Narrative: -all of patient's labs pending -care team consult pending -patient is voluntarily here, not on a Section 12 -physician observation started at 01:19 -sign out given to Dr. Mahmood Differential Diagnosis Differential Diagnoses: The differential diagnosis associated with the presentation includes (Anxiety, depression, polysubstance abuse) Admission/Observation Consideration of admission/observation: Escalation of care including admission/observation considered (Patient will be under observation until seen by behavioral health) External Record Review External record reviewed: Outpatient record (Patient was seen on 09/07/2022 by Psychiatry. Patient discharged, no SI or HI, patient was prescribed multivitamins and olanzapine) Discharge Plan Discharge Clinical Impression: Depression, Suicidal ideation Patient Disposition: Still a Patient Prescriptions: No Action No Known Home Meds
[2022-09-28 01:55] LABS: Basophils Percent Auto 0.6 % (0-2); Eosinophils Absolute Auto 0.2 X10*3/uL (0.0-0.4); Eosinophils Percent Auto 3.8 % (0-4); Hematocrit 38.6 % (42.0-52.0); Hemoglobin 12.7 g/dl (14.0-18.0); Imm Gran Abs Auto 0.01 X10*3/uL (0.00-0.03); Imm Gran Pct Auto 0.2 % (0.0-0.4); Lymphocytes Percent Auto 37.3 % (20-40); MANUAL DIFF FLAG NO; Mean Corpuscular HGB Conc 32.9 g/dl (31.0-36.0); Mean Corpuscular Hemoglobin 30.7 pg (27.0-33.0); Mean Corpuscular Volume 93.2 fL (80.0-98.0); Mean Platelet Volume 8.7 fL (9.4-12.4); Monocytes Absolute Auto 0.7 X10*3/uL (0.1-1.2); Monocytes Percent Auto 13.7 % (2-11); Neutrophils Absolute Auto 2.4 x10*3/uL (2.0-8.3); Neutrophils Percent Auto 44.4 % (45-73); Platelet Count 153 X10*3/uL (160-400); Red Blood Count 4.14 X10*6/uL (4.60-5.80); White Blood Count 5.3 X10*3/uL (4.8-10.8)
[2022-09-28 02:19] LABS: Appearance Urine Cloudy; Color Urine Yellow; Glucose Urine UA Negative (Negative); Leukocyte Esterase Urine Negative (Negative); Nitrite Urine Negative (Negative); PH 7.5 (5.0-9.0); Specific Gravity - Urine 1.025 (1.005-1.025); Urine Blood Negative (Negative); Urine Ketones Trace mg/dL (Negative); Urine Protein Trace mg/dL (Neg-Trace)
[2022-09-28 02:26] LABS: Alanine Aminotransferase 154 U/L (0-40); Albumin Level 3.6 g/dL (3.5-5.0); Alkaline Phosphatase 70 U/L (39-117); Anion Gap 15 (12-20); Aspartate Amino Transferase 113 U/L (5-37); Bilirubin Total 0.4 mg/dL (0.0-1.0); Blood Urea Nitrogen 12 mg/dL (9-16); Carbon Dioxide 25 mmol/L (22-29); Chloride 105 mmol/L (96-108); Creatinine Clr Calc Pharmacy 114.4; Estimated Glomerular Filt Rate > 60; Ethanol < 10 mg/dL; Glucose Random 98 mg/dL (60-115); Potassium 3.6 mmol/L (3.3-5.1); Sodium 141 mmol/L (135-145); Total Protein 7.5 g/dL (6.5-8.0)
[2022-09-28 02:27] LABS: Acetaminophen LAB < 17 mcg/mL (<30); Salicylate < 5.0 mg/dL (15-30)
[2022-09-28 02:31] LABS: Amphetamine Screen Urine Not Detected (Not Detect); Barbiturates, Urine Not Detected (Not Detect); Benzodiazepines Screen Urine Not Detected (Not Detect); Cannabinoid Screen Urine POSITIVE (Not Detect); Cocaine Screen Urine POSITIVE (Not Detect); Fentanyl, urine POSITIVE (Not Detect); Opiate Screen Urine Not Detected (Not Detect); Phencyclidine Screen Urine Not Detected (Not Detect)
--- NOTE | 2022-09-28 05:36 | PC.NURSE ---
Patient slept through the night, labs completed/resulted, med rec attempted, patient is currently not on any medication at this time, pending methadone verification, behavior appropriate and non concerning, patient assess by care team, engaged well, disposition is section 12 EATS bed search, VSS, will continue to monitor.
--- NOTE | 2022-09-28 06:33 | HE.PHANOTE ---
RE: methadone Received verification form from [facility] last dose 100mg on 09/27/22 @0800
[2022-09-28 06:38] VITALS: BP 113/62; PULSE 97; RESP 16; TEMP 36.6
--- NOTE | 2022-09-28 07:53 | MHC.CARE ---
Statewide dual dx bedsearch conducted, no beds available statewide
[2022-09-28] MEDS: methADONE HCl 20 MG/2 ML ORAL.CONC 100 MG PO (09:18)
--- NOTE | 2022-09-28 15:26 | PM.PSYCN ---
History of Present Illness Date of Service: 09/28/22 Chief Complaint: SI Discussed with referring provider: No Sources of Information: patient interviewed, chart reviewed and crisis/core team assessment reviewed HPI Narrative: Patient is a 31-year-old male with history of depression, PTSD, chronic and severe substance abuse, endocarditis, recently discharged on 09/08. literary writer asked to assess for inpatient admission. Patient presented to the ED with some vague SI and asking to go to the inpatient unit. care team assessed patient and did not feel that he met criteria for inpatient admission. [employer] met with patient who shared that he was upset with care team assessment and initially, he refused offers to go to a detox or respite; however when literary writer met with him, patient changed his mind and said he was safe to go to either detox or respite. He said he preferred detox because that would help him with aftercare (though he did not want to go to [facility]); he was okay with going to respite as well. [employer] Fitter asked him about medication however patient was ambivalent. literary writer reviewed chart and patient had a similar presentation when he was 1st admitted to [place] this September. it was documented that Initially he went to [facility] ED and denied any suicidality until he was ready to be discharged and then said he was suicidal with a plan to overdose. When he was admitted to the unit here at [place], he refused psychiatric treatment, did not want medications, did not want to attend groups; he also refused some medical treatment. on discharge patient did not follow-up with outpatient care, did not go to his appointment and continued to engage in substance abuse. [employer] discussed case with SUE Turner who treated him during that admission and reported the patient was psychiatrically uncooperative and not looking for treatment but rather he was here, predominantly for housing since he was homeless. she too recommended against admission. Past Psychiatric History: IP: [place] OP: None Meds: none currently [facility] Medical History Bipolar disorder Cigarette smoker Embolic cerebral infarction Endocarditis Intravenous drug abuse Methadone dependence Polysubstance abuse Septic embolism Family History: Denies Social History: Pt will not engage at this time. Trauma History: Affirms Diagnostics Vital Signs (24Hr): Vital Signs - 24 hr 09/27/22 22:08 09/28/22 06:38 Temperature 97.7 F 98 F Pulse Rate 59 97 Respiratory Rate 16 16 Blood Pressure 116/63 113/62 Pulse Oximetry 100 Oxygen Delivery Method Room Air BMI result Body Mass Index 22.6 Labs 09/28/22 Unknown 09/28/22 Unknown Labs: Laboratory Results - last 48 hr 09/28/22 09/28/22 09/28/22 02:11 02:11 Unknown WBC RBC Hgb Hct MCV MCH MCHC RDW Plt Count MPV Immature Gran % (Auto) Neut % (Auto) Lymph % (Auto) Kay % (Auto) Eos % (Auto) Baso % (Auto) Lymph # (Auto) Kay # (Auto) Eos # (Auto) Baso # (Auto) Abs Immat Gran (auto) Absolute Neuts (auto) Absolute Nucleated RBC Nucleated RBC % (auto) Sodium 141 Potassium 3.6 Chloride 105 Carbon Dioxide 25 Anion Gap 15 BUN 12 Creatinine 0.84 Estim Creat Clear Calc 114.4 Estimated GFR > 60 Random Glucose 98 Calcium 9.0 Total Bilirubin 0.4 AST 113 H ALT 154 H Alkaline Phosphatase 70 Total Protein 7.5 Albumin 3.6 Urine Color Yellow Urine Appearance Cloudy Urine pH 7.5 Ur Specific Curlew 1.025 Urine Protein Trace Urine Glucose (UA) Negative Urine Ketones Trace Urine Blood Negative Urine Nitrite Negative Ur Leukocyte Esterase Negative Salicylates Urine Opiates Screen Not Detected Urine Fentanyl Screen POSITIVE H Acetaminophen Ur Barbiturates Screen Not Detected Ur Phencyclidine Scrn Not Detected Ur Amphetamines Screen Not Detected U Benzodiazepines Scrn Not Detected Urine Cocaine Screen POSITIVE H U Marijuana (THC) Screen POSITIVE H Ethyl Alcohol < 10 09/28/22 09/28/22 Unknown Unknown WBC 5.3 RBC 4.14 L Hgb 12.7 L Hct 38.6 L MCV 93.2 MCH 30.7 MCHC 32.9 RDW 14.0 Plt Count 153 L MPV 8.7 L Immature Gran % (Auto) 0.2 Neut % (Auto) 44.4 L Lymph % (Auto) 37.3 Kay % (Auto) 13.7 H Eos % (Auto) 3.8 Baso % (Auto) 0.6 Lymph # (Auto) 2.0 Kay # (Auto) 0.7 Eos # (Auto) 0.2 Baso # (Auto) 0.0 Abs Immat Gran (auto) 0.01 Absolute Neuts (auto) 2.4 Absolute Nucleated RBC 0.000 Nucleated RBC % (auto) 0.0 Sodium Potassium Chloride Carbon Dioxide Anion Gap BUN Creatinine Estim Creat Clear Calc Estimated GFR Random Glucose Calcium Total Bilirubin AST ALT Alkaline Phosphatase Total Protein Albumin Urine Color Urine Appearance Urine pH Ur Specific Curlew Urine Protein Urine Glucose (UA) Urine Ketones Urine Blood Urine Nitrite Ur Leukocyte Esterase Salicylates < 5.0 L Urine Opiates Screen Urine Fentanyl Screen Acetaminophen < 17 Ur Barbiturates Screen Ur Phencyclidine Scrn Ur Amphetamines Screen U Benzodiazepines Scrn Urine Cocaine Screen U Marijuana (THC) Screen Ethyl Alcohol Mental Status Exam Mental Status Exam Patient Appearance: Disheveled Patient Orientation: Person, Place, Time and Situation Level of Consciousness: Awake and Appropriate Patient Behavior: Good Eye Contact and Uncooperative (; defensive) Mood Description: Angry Affect Description: Constricted Patient Cognition Impaired: No Ability to Follow Directions: Fair Speech Pattern: Spontaneous Speech Memory Description: Intact Hallucinations: None Delusions: Not Present Thought Process: Goal Oriented Thought Content: positive for Goal Oriented and positive for Suicidal Ideation (initially reported SI but then retracted and said he was safe) Judgement and Insight: impaired but adequate Medications Medications Current Medications Methadone HCl (Methadone Hcl 20 Mg/2 Ml Oral.Conc) 100 mg PO DAILY AVNI Last Admin: 09/28/22 09:18 Dose: 100 mg Allergies Allergies Allergy/AdvReac Type Severity Reaction Status Date / Time No Known Allergies Allergy Verified 05/27/22 11:35 Assessment & Plan Assessment & Plan (1) Opiate addiction: Status: Acute Code(s): F11.20 - Opioid dependence, uncomplicated Plan Patient is a 31-year-old male with history of depression, PTSD, chronic and severe substance abuse, endocarditis, recently discharged on 09/08. literary writer asked to assess for inpatient admission. Patient presented to the ED with some vague SI and asking to go to the inpatient unit. care team assessed patient and did not feel that he met criteria for inpatient admission. [employer] met with patient who shared that he was upset with care team assessment and initially he refused offers to go to a detox bed or respite; however when literary writer met with him, patient changed his mind and said he was safe to go to either detox or respite. He said he preferred detox because that would help him with aftercare (though he did not want to go to [facility]); he was okay with going to respite as well. [employer] Fitter asked him about medication however patient was ambivalent. Impression/plan: At This time patient does not meet criteria for inpatient level of care. While he is emotionally reactive and likely depressed his suicidality seems to fluctuate depending on his need for secondary gain. Patient is embroiled in substance abuse and would benefit from an admission to detox. Patient does remain vulnerable to relapse and mood lability and will likely continue to struggle with putting himself in unsafe situations; however this is a chronic issue of which he is not yet ready to address in treatment. Total time managing care of this patient today ____ minutes. Patient educated on: diagnosis, medication risk/benefits and substance abuse Informed Consent: understands
--- NOTE | 2022-09-28 17:50 | PC.NURSE ---
Pt resting majority of shift, came out of room to use restroom, denies any pain or discomfort, ate meals, denied any SI thoughts.
--- NOTE | 2022-09-28 18:13 | MHC.CARE ---
Psych consult done and referred to recovery for detox.
[2022-09-28] MEDS: LORazepam 1 MG TABLET 2 MG PO (18:26)
--- NOTE | 2022-09-28 18:58 | MHC.RECOVSUP ---
? Reason for consult Recovery support o Current location: [facility] o Identified substance use concern: - Seeking ATS (detox) - Support ? Intervention: o Community resources provided o Harm reduction discussion ? Plan: o Patient to follow up with [facility] after discharge ? Additional information: Patient seeking Detox.. Patient did intake for [facility] and has to be there for 9pm
== END 2022-09-28 20:17 | disposition home or self-care (01) ==
PROVIDERS: Emergency Medicine; Emergency Provider Emergency Medicine Emergency Medical Services; PCP Internal Medicine
DX: F31.9 Bipolar disorder, unspecified (principal); R45.851 Suicidal ideations; F11.20 Opioid dependence, uncomplicated; F17.210 Nicotine dependence, cigarettes, uncomplicated
CPT/HCPCS: 36415; 80053; 80143; 80179; 80307; 81003; 85025; 99284; S9485

== ENCOUNTER → 2022-09-27 22:15 | Outpatient (BNV) | payer OTHER, SELFPAY | PROVIDERS: Emergency Provider Emergency Medicine Emergency Medical Services; PCP Internal Medicine; Visit Provider Psychiatry & Neurology Psychiatry | DX: F11.20 Opioid dependence, uncomplicated (principal) | CPT/HCPCS: 99283 ==